=== PATIENT | male | born 1960 | race Caucasian/White ===

== ENCOUNTER 2024-01-18 10:46 | Emergency (ER) | payer BC, SELFPAY ==
[2024-01-18] VITALS (27 sets, daily range): BP systolic 110–162; BP diastolic 68–90; PULSE 44–60; RESP 13–20; TEMP 36.7; O2SAT 93–100
--- NOTE | ~2024-01-18 | XR_ITS ---
EXAMINATION: XR chest 2V DATE: 01/18/2024 11:46 INDICATION: Chest pain and shortness of breath TECHNIQUE: PA and lateral views of the chest were obtained. COMPARISON: None FINDINGS: Calcified left infrahilar nodules consistent with old granulomatous disease. No other airspace opacit ies, pulmonary edema, pleural effusion or pneumothorax. The cardiomediastinal silhouette is normal. M ild to moderate thoracic spondylosis with mild thoracolumbar dextrocurvature. IMPRESSION: 1. No acute cardiopulmonary disease. Reviewed, dictated and finalized at location A.
--- NOTE | ~2024-01-18 | US_ITS ---
EXAMINATION: US venous doppler [facility] DATE: 01/18/2024 11:49 INDICATION: Chest pain, shortness of breath and lower limb pain. TECHNIQUE: Grayscale ultrasound images without and with compression and Doppler ultrasound images of the bilateral lower extremity veins were obtained. COMPARISON: None. FINDINGS: The visualized portions of right common femoral vein, profunda (deep) femoral vein, femoral vein, pop liteal vein, posterior tibial veins, peroneal veins, gastrocnemius vein and greater saphenous vein ou tflow are patent. The visualized portions of left common femoral vein, profunda femoral vein, femoral vein, popliteal v ein, posterior tibial veins, peroneal veins, gastrocnemius vein and greater saphenous vein outflow ar e patent. IMPRESSION: 1. No deep venous thrombosis in either lower limb. Reviewed, dictated and finalized at location A.
--- NOTE | 2024-01-18 10:49 | ECG_ITS ---
SEE SCANNED COPY FOR CONFIRMED REPORT MTDD
--- NOTE | 2024-01-18 10:55 | ED.CHESTPAIN ---
HPI - Chest Pain General Chief Complaint: Chest Pain Stated Complaint: CP, SOB Time Seen by Provider: 01/18/24 10:48 History of Present Illness HPI narrative: Patient is a 63-year-old male with history of hypertension, gout and osteoarthritis here with chest pain and shortness of breath. Patient states that he is currently under lot of stress, newly moving to this area, getting his house ready to be placed on the market. He states over the last few days he has felt increasing fatigue and brain fog which she typically feels when his blood pressure gets elevated. He then notes that just prior to arrival he began having some midsternal chest pain associated with shortness of breath. He denies any associated nausea or diaphoresis. He describes it as feeling like a weight sitting on his chest, the pain has been constant, dull, does seem to worsen with deep breaths and becomes sharp. No cough or congestion. No fever chills. He does note that he has been in the car quite frequently recently and was on a trip out of town last week and. He has had some bilateral calf pain, no swelling. No prior history of PE or DVT. No prior history of cardiac disease. He last had a cardiac workup about 15 years ago when he was experiencing some similar symptoms and was attributed to his anxiety at that time. Related Data Allergies Allergy/AdvReac Type Severity Reaction Status Date / Time ciprofloxacin [From Cipro] Allergy Rash Verified 01/18/24 11:01 Review of Systems Review of Systems: All systems reviewed & are unremarkable except as noted in HPI and below Exam Narrative: GENERAL: Well-appearing, well-nourished, and in no acute distress. HEAD: Normocephalic, atraumatic. EYES: PERRLA and EOMI. ENT: Nares clear. Mucous membranes moist. NECK: Supple. CHEST: Clear to auscultation. No respiratory distress. HEART: Regular rate and rhythm. Normal peripheral pulses. ABDOMEN: Soft, nontender, nondistended. EXTREMITIES: Normal range of motion. No calf tenderness, no pedal edema. SKIN: Warm, dry, no rash. NEURO: No focal deficits. Alert and oriented x3. PSYCH: Normal mood and affect. Course Course Emergency Course: Chart review performed. Patient here with chest heaviness. Triage vitals show mild HTN, otherwise normal. No prior visits in our system. Patient seen evaluated, nontoxic appearing. Triage EKG reassuring. Will do cardiac workup. Given additional symptoms of some calf cramping as well as pleuritic chest pain with shortness of breath will do screening D-dimer. Patient is low risk Wells and cannot use PERC to rule out due to age. Lab work and imaging reviewed, white blood cell count of 10.7, CBC otherwise unremarkable. Electrolytes within normal limits, normal renal function. Troponin negative x2. Lipase grossly normal. COVID, influenza, RSV negative. Bilateral lower extremity Doppler negative. Chest x-ray negative for acute process. HEART score of 3. Patient re-evaluated, feeling well. The results of pertinent diagnostic studies and exam findings were discussed. Discussed heart score of 3. Shared decision making. Will refer to local Cardiology group as well as a local primary care doctor should he not have 1 established in the area. The patient?s provisional diagnosis and plan of care were discussed with the patient and present family. The patient and/or present family expressed understanding of the diagnosis and plan. The nurse was instructed to provide written instructions and appropriate follow-up information. The patient understands their need and responsibility to obtain additional follow-up as instructed. The risks of medications administered and prescribed were discussed with the patient and family present. Vital Signs Vital signs: Vital Signs Temperature 98.0 F 01/18/24 10:51 Pulse Rate 54 L 01/18/24 10:51 Respiratory Rate 20 01/18/24 10:51 Blood Pressure 162/90 H 01/18/24 10:51 Pulse Oximetry 98 01/18/24
[2024-01-18] MEDS: ASPIRIN 81 MG CHEWABLE TABLET 324 MG PO (11:06)
[2024-01-18 11:12] LABS: Basophils Percent Auto 0.2 % (0.2-1.2); Eosinophils Percent Auto 0.4 % (0-4.4); Hematocrit 39.9 % (42.0-52.0); Hemoglobin 14.1 g/dL (14.0-18.0); Immature Granulocyte Absolute 0.06 K/mm3 (0.00-0.031); Immature Granulocyte Percent A 0.6 % (0-0.5); Lymphocytes Absolute Auto 2.88 K/mm3 (0.9-3.2); Lymphocytes Percent Auto 26.9 % (18.3-44.2); Mean Corpuscular HGB Conc 35.3 g/dl (32-36); Mean Corpuscular Hemoglobin 32.2 pg (26-34); Mean Corpuscular Volume 91.1 fl (80-100); Mean Platelet Volume 8.8 fl (7.4-10.4); Monocytes Absolute Auto 0.9 K/mm3 (0.1-0.6); Monocytes Percent Auto 8.2 % (2.6-8.5); Neutrophils Absolute Auto 6.8 K/mm3 (1.3-6.7); Neutrophils Percent Auto 63.7 % (45.5-73.1); Platelet Count Result 306 k/mm3 (150-375); Red Blood Count 4.38 M/mm3 (4.6-6.20); Red Cell Distribution Width 11.6 % (11.5-14.5); White Blood Count 10.7 K/mm3 (4.5-10.0)
[2024-01-18 11:23] LABS: Alanine Aminotransferase 23 U/L (6-50); Albumin Level 4.2 g/dL (3.5-5.1); Alkaline Phosphatase 135 U/L (38-126); Anion Gap 7 mmol/L (4-12); Aspartate Amino Transferase 30 U/L (17-59); Bilirubin,Total 0.7 mg/dL (0.2-1.3); Blood Urea Nitrogen 22 mg/dL (9-20); Carbon Dioxide 22 mmol/L (22-30); Chloride 105 mmol/L (98-107); Estimated CRCL calculation 99 ml/min; Estimated Glomerular Filt Rate > 60; Glucose 115 mg/dL (65-110); INR 0.9; Lipase 328 U/L (23-300); Potassium 3.9 mmol/L (3.4-5.0); Prothrombin Time 12.9 Seconds (11.1-14.7); Sodium 134 mmol/L (137-145)
[2024-01-18 11:32] LABS: D Dimer 0.29 ug/mL (<0.48)
[2024-01-18 11:35] LABS: Troponin I < 0.012 ng/mL (0.000-0.034)
[2024-01-18] MEDS: NITROGLYCERIN SL 0.4 MG TABLET SUBLINGUAL (11:56)
[2024-01-18 13:09] LABS: Influenza A QL RT-PCR Negative (Negative); Influenza B QL RT-PCR Negative (Negative); RSV RNA, RT-PCR Negative (Negative); SARS-CoV-2 RNA PCR Negative (Negative)
--- NOTE | 2024-01-18 13:56 | ECG_ITS ---
SEE SCANNED COPY FOR CONFIRMED REPORT MTDD
[2024-01-18 14:16] LABS: Troponin I < 0.012 ng/mL (0.000-0.034)
== END 2024-01-18 14:58 | disposition home or self-care (01) ==
PROVIDERS: Emergency Provider Student in an Organized Health Care Education/Training Program
DX: R07.89 Other chest pain (principal); Z20.822 Contact with and (suspected) exposure to COVID-19; I10 Essential (primary) hypertension; M19.90 Unspecified osteoarthritis, unspecified site; M10.9 Gout, unspecified; R00.1 Bradycardia, unspecified; R94.31 Abnormal electrocardiogram [ECG] [EKG]; I45.10 Unspecified right bundle-branch block
CPT/HCPCS: 36415; 71046; 80053; 83690; 84484; 85025; 85380; 85610; 85730; 87637; 93005; 93970; 99284; A9270

== ENCOUNTER 2024-11-14 15:13 | Emergency (ER) | payer BC, SELFPAY ==
--- NOTE | ~2024-11-14 | XR_ITS ---
HISTORY: DENIES FALL, SAYS PAIN STARTED YESTERDAY IN R KNEE COMPARISON: None TECHNIQUE: 4 views of the right knee were performed FINDINGS: No acute or subacute fracture, erosion, lytic or sclerotic lesion. Medial and lateral tibiofemoral joint space narrowing is identified. No suprapatellar joint effusion is identified. The infrapatellar joint space is clear. Ossification of the insertion of the quadriceps tendon is present. IMPRESSION: Degenerative disease without acute fracture. Reviewed, dictated and finalized at location A. 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
--- OUTSIDE RECORDS SUMMARY | 2024-11-14 15:15 | XMS_ITS | Encounter Summary ---
Author Organization [facility] Health Address [address] [place] [address] Care Team Providers Care Active Directory Specialist Name Role Phone Taniya Staton MD, German Lofton Primary Care Provider [phone] Shereen Mckeon MD Primary Care Provider [phone] Encounter Details Date Type Department Care Team (Late st Contact Info) Description 03/15/2019 [facility] Outpatient Visit [facility] [address] [place] [address] Jayjay Prieto MD [address] [facility] [address] [address] Social History Tobacco Use Types Packs/Day Years Used Date Smoking Tobacco: Former Cigarettes Q uit: 10/06/1999 Smokeless Tobacco: Never Alcohol Use Standard Drinks/Week Comments No 0 (1 standard drink = 0.6 oz pur e alcohol) Sex and Gender Information Value Date Recorded Sex Assigned at Not on file Gender Identity Not on file Sexual Orientation Not on file documented as of this encounter Plan of Treatment Not on file documented as of this encounter Goals Goal Patient Goal Type Associated Problems Recent Progress Patient-Stated? 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 Eating healthy foods may help you feel better and have more energy. To help control your blood pressure, you may need to limit the amount of salt and fat you eat. Read labels to see how much sodium (salt or sodium chloride) is in the food that you buy at the store. Avoid foods and drinks that are high in sodium (salt). These include smoked meats (such as ham and toussaint), cheese, canned and frozen foods, and butter and margarine. Read all labels carefully. Do not add salt to your food. Learn to use fresh herbs, spices, or salt substitutes to add flavor to your food. Ask your provider for any dietary restrictions that are appropriate for you. Where can I go for more information? [place] [employer] National Center: http://www.americanheart.org 1. In the top header, click C onditions . 2. In the top header, click h igh blood pressure. 3. For a printable blood pressure tracker, scroll toward the bottom of the page to Related Tools, and click H BP Trackers. 0-135-WNM-USA-1 or ( ) National Heart, Lung and Blood [place]: http://www.nhlbi.nih.gov/health/infoctr/index.htm documented as of this encounter Visit Diagnoses Not on filedocumented in this encounter Additional Health Concerns Infection Onset Date Last Indicated Resolved Time COVID-19 Under Investigation 06/20/2023 06/20/2023 06/20/2023 9:18 AM CDT documented as of this encounter Care Teams Active Directory Specialist Relationship Specialty Start Date End Date German Monahan Jr., MD [address] [place], [place] [address] [address] [place] [address] PCP - General 05/12/08 09/26/21 Shereen Mckeon MD [address] [place], [place] [address] [place] [id number] PCP - General Internal Medicine 09/27/21 documented as of this encounter
--- OUTSIDE RECORDS SUMMARY | 2024-11-14 15:15 | XMS_ITS ---
Author Organization [facility] Address [address] [place], [place] [id number] Care Team Providers Care Allergist/Md Name Role Phone ROSCOE LIU Primary Care Provider Marvin Purdy Unavailable [phone] MACIEJ HEBERT, NINO Lofton Unavailable Unavailable Encounters Encounter Location Date Provider Diagnosis [facility] [address], [address] [place], [place] [id number] 09/26/2024 Marvin Rose Elevated LFTs R79.89 ASSESSMENTS Encounter Date Diagnosis Assessment Notes Treatment Notes Treatment Clinical Notes 09/26/2024 Elevated LFTs (ICD-10 - R79.89) PLAN OF TREATMENT Future Test Test Name Order Date AST (SGOT) 10/18/2024 ALT (SGPT) 10/18/2024 Next Appt Details Provider Name:Sue Reynolds, 02/16/2025 11:50:00 AM, [address], [place], [place], [id number],
--- OUTSIDE RECORDS SUMMARY | 2024-11-14 15:15 | XMS_ITS | Continuity of Care Document ---
Author Organization [facility] Address [address] [place] [address] Phone Care Team Providers Care Network Professional Name Role Phone Calvin Gu MD Unavailable Unavailable Allergies, Adverse Reactions, Alerts Substance Reaction Status Criticality ciprofloxacin Active No Information Medications Medication Instructions Dosage Effective Dates (start - stop) Status Comments Duexis 800 mg-26.6 mg tablet take 1 tablet by oral route 3 times every day 1 tablet - Active ALLOPURINOL (unknown strength) take 1 tablet by oral route every day Not Available - Active lisinopril 10 mg tablet take 1 tablet by oral route every day 10 MG - Active lorazepam 1 mg tablet take 1 tablet by oral route 3 times every day as needed 1 MG - Active Procedures Procedure Date OFFICE/OUTPATIENT VISIT [facility] Advance Directives Directive Yes / No Effective Date File Name No Information Encounters Encounter Description Practice Location Reason(s) For Visit Diagnoses Date Provider Providers Copied on Encounter [facility], [address] [facility] [address], [place], [address], [place] tel:[phone] [facility] Department Orthopedics [facility] No Information 0-201 9 Riccardo Simpson. [address], [place], [place], [id number] . tel: [phone] OFFICE/OUTPA TIENT VISIT [facility] Orthopaedic Surgery, [address] [facility] [address], [place], [address], [place] tel:[phone] [facility] Department Orthopedics [facility] Body mass index (BMI) 28.0-28.9, adultPrimary osteoarthritis of left kneePrimary osteoarthritis of left hip 0-201 9 Aurelioantonieta Calvin. [address], [place], [place], [address] . tel: [phone] Referring Provider: German Monahan, [address] [place] [address], [address]. tel:[phone] Family History Family Member Type Diagnosis Age At Onset No Information Payers Payer name Insurance type Covered republican ID Authoriza tion(s) No Information Social History Type Description Quantity Date Captured Comments Alcohol Use Details Unknown Caffeine Use Details Unknown Tobacco Use Status No Information Smoking Status No Information Sex Male Chief Complaint And Reason For Visit No Information Reason For Referral Reason For Referral No Information History Of Present Illness Encounter Date Complaint History Of Prese nt Illness No Information Functional Status Date Functional Assessmen t No Information Instructions Date Instruction Additional Infor mation Weight monitoring Related to Bod y mass index (BMI) 28.0-28.9, adult Assessments Type Assessment Date No Information Patient Care Teams Name Effective Dates (start - stop) Status Members No Information
--- OUTSIDE RECORDS SUMMARY | 2024-11-14 15:15 | XMS_ITS | Encounter Summary ---
Author Organization [facility] Health Address [address] 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 [place] [employer] National Center: http://www.americanheart.org 1. In the top header, click C onditions . 2. In the top header, click h igh blood pressure. 3. For a printable blood pressure tracker, scroll toward the bottom of the page to Related Tools, and click H BP Trackers. 0-902-FME-USA-1 or ( ) National Heart, Lung and Blood [place]ogene: http://www.nhlbi.nih.gov/health/infoctr/index.htm documented as of this encounter Visit Diagnoses Not on filedocumented in this encounter Additional Health Concerns Infection Onset Date Last Indicated Resolved Time COVID-19 Under Investigation 06/20/2023 06/20/2023 06/20/2023 9:18 AM CDT documented as of this encounter Care Teams Employment Programs Analyst Relationship Specialty Start Date End Date German Monahan Jr., MD [address] [place] [address] [address] [place] [address] PCP - General 05/12/08 09/26/21 Shereen Mckeon MD [address] [place] [address] [address] [place] [phone] PCP - General Internal Medicine 09/27/21 documented as of this encounter
--- OUTSIDE RECORDS SUMMARY | 2024-11-14 15:15 | XMS_ITS ---
Author Organization [facility] Address [address] [place], [place] [address] Care Team Providers Care Food Products Tester Name Role Phone ROSCOE LIU Primary Care Provider Marvin Purdy Unavailable [phone] MACIEJ HEBERT, NINO Lofton Unavailable Unavailable MEDICATIONS Medication SIG (Take, Route, Fr equency, Duration) Notes Start Date End Date Status allopurinol 100 mg 1 tab(s) orally once a day for 90 days Active Mitigare 0.6 mg 1 cap(s) orally once a day for 90 days Active Encounters Encounter Location Date Provider Diagnosis [facility] [address], [address] [place], [place] [id number] 09/17/2024 Marvin Rose Idiopathic gout, unspecified chronicity, 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
--- OUTSIDE RECORDS SUMMARY | 2024-11-14 15:16 | XMS_ITS | Referral Summary ---
Author Organization [facility] Address [address] [place] [address] Care Team Providers Care Enameler Name Role Phone Shereen Mckeon MD Primary Care Provider [phone] Source Comments [facility] Affiliates and Associated Physician Practices is amultiple site organization consisting of ambulatory clinics and hospital sitesin [place], [place], [place] and [place]. This disclosure is being madepursuant to the Care Everywhere program and may not contain all information available regarding this patient. Last updated 18.[facility] Encounters Date Type Department Care Team Description 11/05/2024 Orders Only [facility] - Internal Medicine [address] [place] [phone] Marcella Marquez APRN-CNP 10/04/2024 11:46 AM VOLLEYBALL REFEREE - 10/04/2024 11:59 PM VOLLEYBALL REFEREE Hospital Encounter [facility] Imaging Services - CT Scan [address] [place] [id number] Marcella Marquez APRN-CNP Discharge Disposition: Home or Self Care 10/04/2024 Travel 10/04/2024 9:45 AM VOLLEYBALL REFEREE Office Visit [facility] - Internal Medicine [address] [place] [phone] Marcella Marquez APRN-CNP Annual physical exam (Primary Dx); LLQ pain; Screening PSA (prostate specific antigen); Essential hypertension 09/27/2024 Travel 09/27/2024 1:30 PM VOLLEYBALL REFEREE Procedure visit [facility] - Urology [address], [address] [place] [address] Kendall Greene MD Peyronie's disease 09/20/2024 Travel 09/20/2024 3:15 PM VOLLEYBALL REFEREE Office Visit [facility] Orthopedics [address] [place] [address] Ar Arreaga PA-C Glenohumeral arthritis, left (Primary Dx) 09/17/2024 Refill [facility] Internal Medicine [address] [place] [address] [address] [place] [address] Shereen Mckeon MD Med Change Request 09/15/2024 Refill [facility] Internal Medicine [address] [place] [phone] Shereen Mckeon MD Med Change Request 09/13/2024 Travel 09/13/2024 1:30 PM VOLLEYBALL REFEREE Procedure visit [facility] - Urology [address] [place] [address] Kendall Greene MD Peyronie's disease 08/30/2024 Travel 08/30/2024 1:30 PM VOLLEYBALL REFEREE Procedure visit [facility] - Urology [address] [place] [address] Kendall Greene MD Peyronie's disease 08/23/2024 Travel 08/23/2024 3:20 PM VOLLEYBALL REFEREE Office Visit [facility] Internal Medicine [address] [place] [address] [address] [place] [phone] Verenice Dickens, PATIENT DAY COORDINATOR-DYE ROOM HELPER Current moderate episode of major depressive disorder, unspecified whether recurrent (HCC) (Primary Dx); Marijuana smoker, episodic; Insomnia, unspecified type 08/19/2024 Telephone [facility] Internal Medicine [address] [place] [address] [address] [place] [address] Shereen Mckeon MD INSOMNIA 08/16/2024 Travel 08/16/2024 1:30 PM VOLLEYBALL REFEREE Procedure visit [facility] - Urology [address] [place] [address] Kendall Greene MD Peyronie's disease 08/15/2024 Refill [facility] - Internal Medicine [address] [place] [address] Shereen Mckeon MD Refill Request from Last 3 Months Allergies Active Allergy Reactions Criticality Noted Date Comments Bactrim 05/12/2008 Ciprofloxacin Hydrochloride Rash Low 05/12/20 08 hives Sulindac Nausea 08/04/2008 Paroxetine Other 07/17/2010 insomnia Medications * Be aware that medications may not be up to date on this document. Alwaysverify current medications with the patient. Medication Sig Dispensed Refills Start Date End Date Status [place]-3 Fatty Acids (FISH OIL PO) Active Multiple Vitamin (MULTIVITAMIN+ PO) Active allopurinol (ZYLOPRIM) 100 MG tablet Take 1 (one) tablet by mouth once daily Arthritis consulatant Active OMEPRAZOLE PO Take by mouth once daily Active cetirizine (ZyrTEC) 10 MG chew tablet Take 1 (one) tablet by mouth once daily Active lisinopril (Prinivil; Zestril) 10 MG tabletIndications:H ypertension Take 1 (one) tablet by mouth once daily Reasons: High Blood Pressure 90 tablet 08/16/2024 Active colchicine 0.6 MG tablet Take 1 (one) tablet by mouth as needed (inflammation) Gout flareup Active Active Problems Problem Noted Date Diagnosed Date COVID-19 02/2022 paxlovid 04/16/2022 Overview (04/16/2022): 02/2022 needs PP urbano for 08/2022/ bella ag pain face, felt tired,fever - chills. fatigue+/ urine/ conc ok / cp none last night ok on elliptical / cough n Generalized anxiety disorder 04/15/2022 Overview (04/15/2022): lorazepam Gastroesophageal reflux disease with esophagitis 08/05/2019 Overview (08/05/2019): Dr. Coyle/GI 07/2019 moderate severe (grd D, LA classification) erosive reflux esophagitis Post-operative state, left s houlder labral repair dos 09-17-18 10/30/2018 Gouty arthritis 08/10/2018 Overview (04/15/2022): allop / dr moulton GERD without esophagitis 08/10/2018 Diverticulosis of colon 07/09/2017 History of adenomatous polyp of colon - multiple polyps, large polyps, serrated adenoma 01/04/2013 Overview (12/19/2021): Dr. Brady 12/16 x3 (serrated adenoma x2), 07/22 x2 (serrated adenoma x2, 12 mm cecal polyp, piece meal), 08/23 x3 (serrated adenoma x1), 12/25 Internal hemorrhoids 01/04/2013 Rectosigmoid diverticulitis recurrent s/p coloct otis 11/27/2012 S/P arthroscopy 09/06/2008 Overview (09/06/2008): Dex knees Poss. Viviana hilary Essential hypertension, benign 08/16/2008 Overview (12/12/2022): lisinopril decrease K / amlodipine started Insomnia Other testicular hypofunction Resolved Problems Problem Noted Date Diagnosed Date Resolved Date Gouty arthropathy 08/12/2008 12/10/2010 Immunizations Name Administration Dates Next Due INFLUENZA VACCINE, TRIV. (AF LURIA, FLUZONE TRIVALENT; 6MO+) (IIV3) 07/19/2009 COVID MODERNA 12+ yr 50mcg/0.5mL 07/14/2023 COVID PFIZER 12+YR 30MCG/0.3mL 08/18/2024 COVID PFIZER BIVALENT 12Y+ 30mcg/0.3ML 06/23/2022 Covid Pfizer primary monoval ent 12+ yr 0.3mL Purple cap 07/03/2021,12/04/2020,11/15/2020,2020 HEP A/HEP B 05/18/2008 INFLUENZA VACCINE, CELL CULT URE, TRIV. (FLUCELVAX TRIVALENT; 6MO+), 0.5 ML (CCIIV3) 08/18/2024 INFLUENZA VACCINE, QUADR. (F LUZONE; FLULAVAL; FLUARIX; AFLURIA QUADRIVALENT; 6MO+), 0.5 ML (IIV4) 07/14/2023,06/23/2022,07/03/2021,2019 PNEUMOCOCCAL PCV VACCINE 07/19/2009 RSV AREXVY 60YR+ 0.5ML 08/27/2023 TDAP (7yrs+) 08/10/2018 Zoster Hzv Vacc Recombinant Inj Im 09/17/2020, Social History Tobacco Use Types Packs/Day Years Used Date Smoking Tobacco: Former Cigarettes Q uit: 10/06/1999 Smokeless Tobacco: Never Tobacco Cessation:Counseling Given: Not Answered Alcohol Use Standard Drinks/Week Comments No 0 (1 standard drink = 0.6 oz pur e alcohol) PHQ-2 Answer Date Recorded Patient Health Questionnaire-2 Score 0 10/04/2024 Sex and Gender Information Value Date Recorded Sex Assigned at Not on file Gender Identity Not on file Sexual Orientation Not on file Last Filed Vital Signs Vital Sign Reading Time Taken Comments Blood Pressure 112/74 10/04/2024 9:31 AM VOLLEYBALL REFEREE Pulse 56 10/04/2024 9:31 AM VOLLEYBALL REFEREE Temperature 36.4 C (97.5 F) 10/04/2024 9:31 AM VOLLEYBALL REFEREE Respiratory Rate 16 10/03/2023 1:32 PM VOLLEYBALL REFEREE Oxygen Saturation 98% 10/04/2024 9:31 AM VOLLEYBALL REFEREE Inhaled Oxygen Concentration - - Weight 88.9 kg (196 lb) 10/04/2024 9:31 AM VOLLEYBALL REFEREE Height 177.8 cm (5' 10 ) 06/14/2024 2:29 PM CDT Body Mass Index 28.12 06/14/2024 2:29 PM CDT Plan of Treatment Not on file Goals Goal Patient Goal Type Associated Problems Recent Progress Patient-Stated? Author Blood Pressure < 140/90 Blood Pressure 112/74(2023 9:31 AM VOLLEYBALL REFEREE) Camila Hoang Note: Caring for Your High [...] Where can I go for more information? [place] [employer] National Center: http://www.americanheart.org 1. In the top header, click C onditions . 2. In the top header, click h igh blood pressure. 3. For a printable blood pressure tracker, scroll toward the bottom of the page to Related Tools, and click H BP Trackers. [id number]-[id number] or ( ) National Heart, Lung and Blood [place]: http://www.nhlbi.nih.gov/health/infoctr/index.htm Medical Devices Implanted Type Area Plant Electrician Device Identifier Shelf Expiration Date Model / Serial / Lot Endo Sabine Articulating Reload Implanted:Qty: 1 on 05/27/2013 at [facility] 12/04/2017 [id number] / / [id number] Description:60 mm Endo Sabine Reload 60mm Implanted:Qty: 2 on 05/27/2013 at [facility] 03/06/2018 [id number] / / [id number] Endo Sabine Articulating Reload, 60mm Implanted:Qty: 1 on 05/27/2013 at [facility] 04/05/2018 [id number] / / [id number] Autosuture Dst Series 28 Xl Eea Implanted:Qty: 1 on 05/27/2013 at [facility] 12/04/2016 [id number] / / [id number] [place] Sut Pushlock 2.9mm Bcmps 12.5mm Implanted:Qty: 1 on 09/17/2018 by Jayjay Prieto MD at [facility] Left: Shoulder [employer] 03/05/2020 [id number] / / [id number] [place] Sut Pushlock 2.9mm Bcmps 12.5mm Implanted:Qty: 2 on 09/17/2018 by Jayjya Prieto MD at [facility] Left: Shoulder [employer] 06/05/2020 [id number] / / [id number] [place] Sut Fibertak Suturetape 1.3mm Implanted:Qty: 1 on 09/17/2018 by Jayjay Prieto MD at [facility] Left: Shoulder [employer] 01/03/2023 [id number] / / [id number] [place] Sut Pushlock 2.9mm Bcmps 12.5mm Implanted:Qty: 1 on 09/17/2018 by Jayjay Prieto MD at [facility] Left: Shoulder [employer] 05/05/2020 [id number] / / [id number] [place] Sut Pushlock 2.9mm Bcmps Roland Implanted:Qty: 1 on 09/17/2018 by Jayjay Prieto MD at [facility] Left: Shoulder [employer] 02/03/2020 [id number] / / [id number] Procedures Procedure Name Priority Date/Time Associated Diagnosis Comments PROSTATE SPECIFIC ANTIGEN SCREEN 11/05/2024 6:59 AM VOLLEYBALL REFEREE CBC W AUTO DIFFERENTIAL 11/05/2024 6:59 AM VOLLEYBALL REFEREE COMPREHENSIVE METABOLIC PANEL 11/05/2024 6:59 AM VOLLEYBALL REFEREE LIPID PROFILE 11/05/2024 6:59 AM VOLLEYBALL REFEREE ISTAT CREATININE Routine 10/04/2024 1:[address] ABDOMEN PELVIS W CONTRAST Routine 10/04/2024 1:45 PM VOLLEYBALL REFEREE LLQ pain TOXASSURE SELECT Routine 08/23/2024 3:56 PM VOLLEYBALL REFEREE Current moderate episode of major depressive disorder, unspecified whether recurrent (HCC) Marijuana smoker, episodic ENDOSCOPY, COLON, SCREENING Routine 12/17/2021 History of adenomatous polyp of colon - multiple polyps, large polyps, serrated adenoma Serrated polyp of colon Family history of colonic polyps HEPATITIS C ANTIBODY W RFLX PCR Routine 10/22/2018 9:26 AM VOLLEYBALL REFEREE Routine general medical examination at a health care facility from Last 3 Months or Most Recently Relevant to Health Maintenance Results * CBC WITH DIFFERENTIAL (11/05/2024 6:59 AM VOLLEYBALL REFEREE) White Blood Cell Count 8.2 3.8 - 10.8 Thousand/u L [facility] RBC 4.68 4.20 - 5.80 Million/uL [facility] Hemoglobin 14.8 13.2 - 17.1 g/dL [facility] Hematocrit 43.7 38.5 - 50.0 % [facility] MCV 93.4 80.0 - 100.0 fL [facility] MCH 31.6 27.0 - 33.0 pg [facility] MCHC 33.9 32.0 - 36.0 g/dL [facility] Comment: For adults, a slight decrease in the calculated MCHC value (in the range of 30 to 32 g/dL) is most likely not clinically significant; however, it should be interpreted with caution in correlation with other red cell parameters and the patient's clinical condition. RDW 11.6 11.0 - 15.0 % [facility] Platelet Count 289 140 - 400 Thousand/u L [facility] MPV 8.8 7.5 - 12.5 fL [facility] Neutrophil Absolute 4543 1500 - 7800 cells/uL [facility] Lymphocytes Absolute 2640 850 - 3900 cells/uL [facility] Absolute Monocytes 869 200 - 950 cells/uL [facility] Eosinophils Absolute 107 15 - 500 cells/uL [facility] Basophils Absolute 41 0 - 200 cells/uL [facility] Granulocytes % 55.4 % [facility] Lymphocytes % 32.2 % [facility] Monocytes % 10.6 % [facility] Eosinophils % 1.3 % [facility] Basophils % 0.5 % [facility] Comment: Test Performed at: [facility] [address] [place] [address] BRIGIDO SHELTON MD 11/05/2024 6:59 AM VOLLEYBALL REFEREE 11/05/2024 7:01 AM VOLLEYBALL REFEREE Marcella Marquez APRN-DYE ROOM HELPER LAB - SOL TOLOGY ORDERABLES [facility] [address] [place] [address] * COMPREHENSIVE METABOLIC PANEL (11/05/2024 6:59 AM VOLLEYBALL REFEREE) Glucose 95 65 - 99 mg/dL [facility] Comment: Fasting reference interval BUN 19 7 - 25 mg/dL [facility] Creatinine 0.84 0.70 - 1.35 mg/dL [facility] eGFR by Cystatin C 99 > OR = 60 mL/min/1. 73m2 [facility] BUN/Creatinine Ratio SEE NOTE: 6 - (calc) [facility] Comment: Not Reported: BUN and Creatinine are within reference range. Sodium 137 135 - 146 mmol/L [facility] Potassium 4.9 3.5 - 5.3 mmol/L [facility] Chloride 101 98 - 110 mmol/L [facility] CO2 30 20 - 32 mmol/L [facility] Calcium 9.5 8.6 - 10.3 mg/dL [facility] Protein Total 6.9 6.1 - 8.1 g/dL [facility] Albumin 4.5 3.6 - 5.1 g/dL [facility] Globulin Total 2.4 1.9 - 3.7 g/dL (calc) [facility] Albumin/Globulin Ratio 1.9 1.0 - 2.5 (calc) [facility] Bilirubin Total 0.5 0.2 - 1.2 mg/dL [facility] Alkaline Phosphatase 107 35 - 144 U/L [facility] AST 32 10 - 35 U/L [facility] ALT 25 9 - 46 U/L [facility] Comment: Test Performed at: [facility] [place] [address] BRIGIDO SHELTON MD 11/05/2024 6:59 AM VOLLEYBALL REFEREE 11/05/2024 7:01 AM VOLLEYBALL REFEREE Marcella Marquez APRN-DYE ROOM HELPER LAB - CHEM ISTRY ORDERABLES Performing Organization Address [facility] de Phone Number [facility] [address] [place] [address] * PROSTATE SPECIFIC ANTIGEN SCREEN (11/05/2024 6:59 AM VOLLEYBALL REFEREE) PSA 0.75 < OR = 4.00 ng/mL [facility] Comment: The total PSA value from this assay system is standardized against the WHO standard. The test result will be approximately 20% lower when compared to the equimolar-standardized total PSA (Aniyah Inocente). Comparison of serial PSA results should be interpreted with this fact in mind. This test was performed using the Siemens chemiluminescent method. Values obtained from different assay methods cannot be used interchangeably. PSA levels, regardless of value, should not be interpreted as absolute evidence of the presence or absence of disease. Test Performed at: [facility] [address] [place] [address] BRIGIDO SHELTON MD 11/05/2024 6:59 AM VOLLEYBALL REFEREE 11/05/2024 7:01 AM VOLLEYBALL REFEREE Marcella Marquez PATIENT DAY COORDINATOR-DYE ROOM HELPER LAB - CHEM ISTRY ORDERABLES Performing Organization Address [facility] de Phone Number [facility] [address] [place] [address] * LIPID PROFILE (11/05/2024 6:59 AM VOLLEYBALL REFEREE) Cholesterol 160 <200 mg/dL [facility] HDL Cholesterol 53 > OR = 40 mg/dL [facility] Triglycerides 81 <150 mg/dL [facility] LDL Calculated 90 mg/dL (calc) [facility] Comment: Reference range: <100 Desirable range <100 mg/dL for primary prevention; <70 mg/dL for patients with CHD or diabetic patients with > or = 2 CHD risk factors. LDL-C is now calculated using the Nanci calculation, which is a validated novel method providing better accuracy than the Friedewald equation in the estimation of LDL-C. German MCDERMOTT et al. FAUZIA. 2013;310(19): 3644-4819 (http://education.TargeGen.Dormzy/faq/KOB840) CHOL/HDLC RATIO 3.0 <5.0 (calc) [facility] Non HDL Cholesterol 107 <130 mg/dL (calc) [facility] Comment: For patients with diabetes plus 1 major ASCVD risk factor, treating to a non-HDL-C goal of <100 mg/dL (LDL-C of <70 mg/dL) is considered a therapeutic option. Test Performed at: [facility] [address] [place] [address] BRIGIDO SHELTON MD 11/05/2024 6:59 AM VOLLEYBALL REFEREE 11/05/2024 7:01 AM VOLLEYBALL REFEREE Marcella Marquez APRN-DYE ROOM HELPER LAB - CHEM ISTRY ORDERABLES [facility] [address] [place] [address] * ISTAT CREATININE (10/04/2024 1:59 PM VOLLEYBALL REFEREE) Sample iSTAT GRICELDA 10/04/2024 2:01 PM VOLLEYBALL REFEREE [facility] Creatinine POCT 0.8 0.5 - 1.3 mgdL 10/04/2024 2:01 PM VOLLEYBALL REFEREE [facility] Blood BLOOD SPECIMEN / Unknown 10/04/2024 1:59 PM VOLLEYBALL REFEREE 10/04/2024 2:01 PM VOLLEYBALL REFEREE Marcella Marquez APRN-DYE ROOM HELPER LAB - POIN T OF CARE ORDERABLES [facility] [address] [place] [address], [facility] [[email or web address]] * CT Abdomen Pelvis W Contrast (10/04/2024 1:45 PM VOLLEYBALL REFEREE) Anatomical Region Laterality Modality Abdomen, Pelvis Computed Tomogra phy 10/04/2024 2:24 PM VOLLEYBALL REFEREE Impressions 10/04/2024 2:29 PM VOLLEYBALL REFEREE IMPRESSION: 1. Inflammatory change adjacent to the descending colon as described. Although the patient has significant diverticulosis. An has had partial sigmoid resection due to recurrent diverticulitis the above findings are much more suggestive of epiploic appendagitis as a self limited inflammatory but noninfectious entity and would correlate clinically. 2. Normal appendix > Interpreting Provider: Hilton Ramos MD on 10/04/2024 2:29 PM Narrative 10/04/2024 2:29 PM VOLLEYBALL REFEREE PROCEDURE: CT ABDOMEN PELVIS W CONTRAST DATE/TIME OF EXAM: 10/04/2024 2:18 PM INDICATION: R10.32: Left lower quadrant pain COMPARISON: 2018 ADDITIONAL CLINICAL INFORMATION (if provided): Ordering Provider Reason For Exam: CONTRAST: IOPAMIDOL 76 % IV SOLN:100 mL TECHNIQUE: CT ABDOMEN PELVIS W CONTRAST utilizing standard protocol.. Routine postcontrast imaging was performed with intravenous contrast with multiplanar reconstructions. CT dose reduction technique was used, including Automated Exposure Control. FINDINGS: The lower lung saravia are clear. There is a stable punctate cyst in posterior segment 7 of the liver otherwise the liver spleen gallbladder pancreas adrenals and kidneys enhance normally. No kidney stone or hydronephrosis is seen. The abdominal aorta is normal in caliber. The urinary bladder wall is slightly thickened and the prostate is mildly enlarged. Oral contrast was administered with incomplete distal small and large bowel opacification. The patient is status post prior sigmoid resection with primary anastomosis and residual moderate diverticulosis. There is no obstruction seen. The terminal ileum and appendix appear to be normal. Adjacent to the descending colon there is a subtle inflammatory process on axial image 57 with central fat attenuation.. There is no perforation fluid collection abscess or bowel obstruction. Procedure Note Hilton Ramos MD - 10/04/2024 PROCEDURE: CT ABDOMEN PELVIS W CONTRAST DATE/TIME OF EXAM: 10/04/2024 2:18 PM INDICATION: R10.32: Left lower quadrant pain COMPARISON: 2018 ADDITIONAL CLINICAL INFORMATION (if provided): Ordering Provider Reason For Exam: CONTRAST: IOPAMIDOL 76 % IV SOLN:100 mL TECHNIQUE: CT ABDOMEN PELVIS W CONTRAST utilizing standard protocol.. Routine postcontrast imaging was performed with intravenous contrastwith multiplanar reconstructions. CT dose reduction technique was used, including Automated ExposureControl. FINDINGS: The lower lung saravia are clear. There is a stable punctate cyst in posterior segment 7 of the liver otherwise the liver spleen gallbladder pancreas adrenals and kidneys enhance normally. No kidney stone or hydronephrosis is seen. Theabdominal aorta is normal in caliber. The urinary bladder wall is slightlythickened and the prostate is mildly enlarged. Oral contrast was administered with incomplete distal small and largebowel opacification. The patient is status post prior sigmoid resection with primary anastomosis and residual moderate diverticulosis. There is no obstruction seen. The terminal ileum and appendix appear to be normal. Adjacent to the descending colon there is a subtle inflammatory processon axial image 57 with central fat attenuation.. There is no perforationfluid collection abscess or bowel obstruction. IMPRESSION: 1. Inflammatory change adjacent to the descending colon as described. Although the patient has significant diverticulosis. An has had partial sigmoid resection due to recurrent diverticulitis the above findings are much more suggestive of epiploic appendagitis as a self limited inflammatory but noninfectious entity and would correlate clinically. 2. Normal appendix > Interpreting Provider: Hilton Ramos MD on 10/04/2024 2:29 PM Marcella Sarabia Jimmy PATIENT DAY COORDINATOR-DYE ROOM HELPER CT ORDERAB LES * TOXASSURE SELECT URINE (08/23/2024 3:56 PM VOLLEYBALL REFEREE) Summary FINAL [facility] INSURANCE BILL Comment: TOXASSURE SELECT 13 (MW) Test Result Flag Units NO DRUGS DETECTED. Test Result Flag Units Ref Range Creatinine 29 mg/dL >=20 Declared Medications: Medication list was not provided. For clinical consultation, please call . URINE SPECIMEN OBTAINED BY CLEAN CATCH PROCEDURE / Unknown 08/23/2024 3:56 PM VOLLEYBALL REFEREE 08/23/2024 Narrative [facility] INSURANCE BILL - 08/29/2024 3:07 PM VOLLEYBALL REFEREE Performed at: 01 - [employer] [address] [place] [id number] Breakfast Bar Attendant: Mayelin Kathleen [facility], Phone: [phone] Specimen Comment: ToxAssure, [employer] FLEX or MAT drug testing: Specimen Comment: -Technical component - Data analysis performed at Specimen Comment: [address] , [place] [address]. Verenice Dickens APRN-DYE ROOM HELPER LAB - URINE CHEMISTRY ORDERABLES Performing Organization Address City/[facility] Co de Phone Number [facility] INSURANCE BILL [address] [place] [address] * ENDOSCOPY, COLON, SCREENING (12/17/2021) Angel Coyle MD GI PROCEDURE ORDERAB LES [facility] RESULT SCAN * HEPATITIS C ANTIBODY W RFLX PCR (10/22/2018 9:26 AM VOLLEYBALL REFEREE) Hepatitis C Antibody 0.1 0.0 - 0.9 s/co ratio [facility] ACCOUNT BILL Blood BLOOD SPECIMEN / Unknown 10/22/2018 9:26 AM VOLLEYBALL REFEREE 10/22/2018 Narrative Resulting Agency Comment [facility] [address] [facility] [phone] German Monahan Jr., MD LAB - CHEMISTRY O RDERABLES [facility] ACCOUNT BILL [address] [place] [address] from Last 3 Months or Most Recently Relevant to Health Maintenance Advance Directives Documents on File Type Date Recorded Patient Street Cleaner Expl anation Adv Directive/Living Will/POA 06/02/2013 7:12 PM * FULL RESUSCITATION (Latest Code Status on File) Date Activated Date Inactivated Comments 05/27/2013 4:48 PM 06/01/2013 12:04 PM Care Teams Enameler Relationship Specialty Start Date End Date Shereen Mckeon MD [address] [place] [address] PCP - General Internal Medicine 09/27/21
--- OUTSIDE RECORDS SUMMARY | 2024-11-14 15:16 | XMS_ITS ---
Author Organization [facility] Address [address] [facility] [address] [place], [place] [id number] Care Team Providers Care Chicken And Fish Cleaner Name Role Phone ROSCOE LIU Primary Care Provider UnavailMarvin Mehta Unavailable [phone] NINO WING MD Unavailable Unavailable Sue Reynolds Unavailable [phone] RESULTS Component Value Reference Range Notes Uric Acid, Serum Reviewed date:09/18/2024 06:25:56 PM Interpretation: Performing Lab:[facility], [address] [facility], Phone - [phone], [facility] - [facility] Notes/Report: Uric Acid 8.3 3.8-8.4 mg/dL Therapeutic ta rget for gout patients: <6.0 CBC With Differential/Platel et Reviewed date:09/18/2024 06:25:56 PM Interpretation: Performing Lab:[facility], [address] [facility], Phone - [phone], [facility] Notes/Report: WBC 7.4 3.4-10.8 x10E3/uL RBC 4.66 4.14-5.80 x10E6/uL Hemoglobin 14.6 13.0-17.7 g/dL Hematocrit 43.5 37.5-51.0 % MCV 93 79-97 fL MCH 31.3 26.6-33.0 pg MCHC 33.6 31.5-35.7 g/dL RDW 11.8 11.6-15.4 % Platelets 312 150-450 x10E3/uL Neutrophils 53 Not Estab. % Lymphs 34 Not Estab. % Monocytes 9 Not Estab. % Eos 2 Not Estab. % Basos 1 Not Estab. % Immature Cells Neutrophils (Absolute) 4.0 1.4-7.0 x10E3/uL Lymphs (Absolute) 2.5 0.7-3.1 x10E3/uL Monocytes(Absolute) 0.7 0.1-0.9 x10E3/uL Eos (Absolute) 0.1 0.0-0.4 x10E3/uL Baso (Absolute) 0.1 0.0-0.2 x10E3/uL Immature Granulocytes 1 Not Estab. % Immature Grans (Abs) 0.1 0.0-0.1 x10E3/uL NRBC Hematology Comments: Sed Rate - [place] Reviewed date:09/18/2024 06:25:56 PM Interpretation: Performing Lab:[address], Phone - [phone], Director - [facility] Notes/Report: Sedimentation Rate-[place] 5 0-30 mm/hr Rheumatoid Arthritis Factor Reviewed date:09/18/2024 06:25:56 PM Interpretation: Performing Lab:[address], Phone - [phone], Director - [facility] Notes/Report: Rheumatoid Factor (RF) 10.5 <14.0 IU/mL C-Reactive Protein, Quant Reviewed date:09/18/2024 06:25:56 PM Interpretation: Performing Lab:[address], Phone - [phone], Director - [facility] Notes/Report: C-Reactive Protein, Quant 4 0-10 mg/L CCP IgG Antibodies Reviewed date:09/18/2024 06:25:56 PM Interpretation: Performing Lab:[address], Phone - [phone], Director - [facility] Notes/Report: Anti-CCP Ab, IgG/IgA 2 0-19 units Negative <20 Weak positive 20 - 39 Moderate positive 40 - 59 Strong positive >59 Comp. Metabolic Panel (14) Reviewed date:09/26/2024 10:11:21 PM Interpretation: Performing Lab:[address], Phone - [phone], Director - [facility] Notes/Report: Glucose 87 70-99 mg/dL BUN 15 8-27 mg/dL Creatinine 0.88 0.76-1.27 mg/dL eGFR 97 >59 mL/min/1.73 BUN/Creatinine Ratio 17 10-24 Sodium 140 134-144 mmol/L Potassium 4.6 3.5-5.2 mmol/L Chloride 102 96-106 mmol/L Carbon Dioxide, Total 28 20-29 mmol/L Calcium 9.8 8.6-10.2 mg/dL Protein, Total 6.8 6.0-8.5 g/dL Albumin 4.2 3.9-4.9 g/dL Globulin, Total 2.6 1.5-4.5 g/dL Bilirubin, Total 0.5 0.0-1.2 mg/dL Alkaline Phosphatase 121 44-121 IU/L AST (SGOT) 42 0-40 IU/L ALT (SGPT) 43 0-44 IU/L REASON FOR VISIT f/u MEDICATIONS Medication SIG (Take, Route, Fr equency, Duration) Notes Start Date End Date Status lisinopril 10 mg 1 tab(s) orally once a day Active allopurinol 100 mg 1 tab(s) orally NEED S APPT once a day Active Mitigare 0.6 mg 1 cap(s) orally once a day for 30 days Active colchicine 0.6 mg 1 tab(s) PRN Active celecoxib 100 mg 1 cap(s) orally once a day Active VITAL SIGNS BMI 28.12 kg/m2 09/17/2024 Blood pressure systolic 116 mm Hg 09/17/20 24 Blood pressure diastolic 65 mm Hg 024 Heart Rate 58 /min 09/17/2024 Height 70 in 09/17/2024 Weight 196 lbs 09/17/2024 Encounters Encounter Location Date Provider Diagnosis [facility], [address] [place], [place] [id number] 09/17/2024 Sue Reynolds Idiopathic gout, unspecified chronicity, unspecified site M10.00 ; Primary generalized (osteo)arthritis M15.0 ; Other fdc (current) drug therapy Z79.899 ; Polyarthritis M13.0 ; Pain in right hip M25.551 ; Pain in left hip M25.552 ; Pain, joint, knee, left M25.562 and Essential (primary) hypertension I10 ASSESSMENTS Encounter Date Diagnosis Assessment Notes Treatment Notes Treatment Clinical Notes 09/17/2024 Idiopathic gout, unspecified chronicity, unspecified site (ICD-10 - M10.00) 09/17/2024 Primary generalized (osteo)arthritis (ICD-10 - M15.0) 09/17/2024 Other terminal make up operator (current) drug therapy (ICD-10 - Z79.899) 09/17/2024 Polyarthritis (ICD-1 0 - M13.0) 09/17/2024 Pain in right hip (ICD-10 - M25.551) 09/17/2024 Pain in left hip (ICD-10 - M25.552) 09/17/2024 Pain, joint, knee, left (ICD-10 - M25.562) 09/17/2024 Essential (primary) hypertension (ICD-10 - I10) PLAN OF TREATMENT Medication Medication Name Sig Start Date Stop Date Notes lisinopril 10 mg 1 tab(s) orally once a day allopurinol 100 mg 1 tab(s) orally NEEDS APPT once a day colchicine 0.6 mg 1 tab(s) PRN celecoxib 100 mg 1 cap(s) orally once a day Next Appt Details Follow Up: 6 Months, 4 Month s, Reason: Provider Name:Sue Reynolds, 02/16/2025 11:50:00 AM, [address] [facility], [place], [place], [id number], Progress Notes * Examination Category Sub-Category Detail Notes General Constitutional: No acute distres s HEENT: PERRLA, Neck supple, Normal sclerae and conjunctivae Cardiovascular RSR, No murmurs, No rub, Normal peripheral pulsations, No edema Lungs: clear to ausculation Abdomen: soft, no organomegal y or masses /Rectal: not done Skin: erythematous rash Neurological: No focal neurologica l findings, DTRs intact Heme/Lymphatic: No cervical, axillar y, or inguinal adenopathy Psych: Alert, oriented x 3, Normal affect Musculoskeletal: Normal strength. No muscle atrophy Joint Exam Shoulders No swelling, no tenderness, NROM, No instability or deformity. left shoulder surgery. Left arm in a sling. Elbows No swelling, no tend erness, NROM, No instability or deformity Wrists No swelling, no tend erness, NROM, No instability or deformity Hips bilateral, NROM, No instability or deformity, 2+ tenderness with decreased ROM and pain to internal rotation. Knees No swelling, no tend erness, NROM., right, 1+ tenderness Ankles No swelling, no tend erness, NROM, No instability or deformity All IPs No swelling, no tend erness, NROM, no deformity unless noted blow All MCPs No swelling, no tend erness, no deformity unless noted below All PIPs No swelling, no tend erness, no deformity unless noted below All DIPs No swelling, no tend erness, no deformity unless noted below All MTPs No swelling, no tend erness, NROM, no deformity unless noted below History and Physical Notes * HPI (History of Present Illness) Category Sub-Category Detail Notes Gout Joint pain right, knee Joint swelling mild morning stiffness Physical Examination Category Sub-Category Detail Notes MDHAQ Summary Function (0-10):: 2.7 Pain (0-10):: 7.5 Patient Global Assessment of Disease Activity (0 -10):: 2.5 RAPID3 Score (0-30):: 12.7 Physician Global Assessment of Disease Activity (0-10):: 4 Prognosis Very Good w/tx Erosive Damage No
--- OUTSIDE RECORDS SUMMARY | 2024-11-14 15:16 | XMS_ITS | Encounter Summary ---
Author Organization [facility] Health Address [address] [place] [address] Care Team Providers Care Rubber Grinder Name Role Phone Taniya Staton MD, German Lofton Primary Care Provider [phone] Shereen Mckeon MD Primary Care Provider [phone] Encounter Details Date Type Department Care Team (Late st Contact Info) Description 07/27/2018 [facility] Outpatient Visit [facility] Orthopedics - Radiology [address] [place] [address] [place] [address] Document, Scanned Social History Tobacco Use Types [...] < 140/90 Blood Pressure 112/74(2023 9:31 AM MATHEMATICS ACADEMIC CHAIR) Camila Hoang Note: Caring for Your High [...] Related Tools, and click H BP Trackers. [id number] or ( ) National Heart, Lung and Blood Donald: http://www.nhlbi.nih.gov/health/infoctr/index.htm documented as of this encounter Visit Diagnoses Not on filedocumented in this encounter Additional Health Concerns Infection Onset Date Last Indicated Resolved Time COVID-19 Under Investigation 06/20/2023 06/20/2023 06/20/2023 9:18 AM CDT documented as of this encounter Care Teams Rubber Grinder Relationship Specialty Start Date End Date German Monahan Jr., MD [address] [place] [phone] PCP - General 05/12/08 09/26/21 Shereen Mckeon MD [address] [place] [address] [address] [place] [id number] PCP - General Internal Medicine 09/27/21 documented as of this encounter
--- OUTSIDE RECORDS SUMMARY | 2024-11-14 15:16 | XMS_ITS | Clinical Summary ---
Author Organization [facility] gate5 Address [address] [place] [address] Care Team Providers Care Cloth Napping Supervisor Name Role Phone Shereen Mckeon MD Primary Care Provider [phone] Source Comments [facility] Affiliates and Associated Physician Practices is amultiple site organization consisting of ambulatory clinics and hospital sitesin [place], [place], [place] and [place]. This disclosure is being madepursuant to the Care Everywhere program and may not contain all information available regarding this patient. Last updated 18.[facility] gate5 Allergies Active Allergy Reactions Criticality Noted Date Comments Bactrim 05/12/2008 Ciprofloxacin Hydrochloride Rash Low 05/12/20 08 hives Sulindac Nausea 08/04/2008 Paroxetine Other 07/17/2010 insomnia Medications * Be aware that medications may not be up to date on this document. Alwaysverify current medications with the patient. Medication Sig Dispensed Refills Start Date End Date Status [place]-3 Fatty Acids (FISH OIL PO) Active Multiple [...] (04/16/2022): 02/2022 needs PP urbano for 08/2022/ wesk ag pain face, felt tired,fever - chills. [...] arthroscopy 09/06/2008 Overview (09/06/2008): Dex knees Poss. [place] schluters Essential hypertension, benign 08/16/2008 Overview (12/12/2022): lisinopril decrease K / amlodipine started Insomnia Other testicular hypofunction Resolved Problems Problem Noted Date Diagnosed Date Resolved Date Gouty arthropathy 08/12/2008 12/10/2010 Encounters Date Type Department Care Team Description 11/05/2024 Orders Only [facility] - Internal Medicine [address] [place] [phone] Marcella Marquez APRN-CNP 10/04/2024 11:46 AM FIELD AGENT - 10/04/2024 11:59 PM FIELD AGENT Hospital Encounter [facility] Imaging Services - CT Scan [address] [place] [address] Marcella Marquez APRN-CNP Discharge Disposition: Home or Self Care 10/04/2024 9:45 AM FIELD AGENT Office Visit [facility] Internal Medicine [address] [place] [phone] Marcella Marquez APRN-CNP Annual physical exam (Primary Dx); LLQ pain; Screening PSA (prostate specific antigen); Essential hypertension 10/04/2024 Travel 09/27/2024 1:30 PM FIELD AGENT Procedure visit [facility] Urology [address], [address] [place] [address] Kendall Greene MD Peyronie's disease 09/27/2024 Travel 09/20/2024 3:15 PM FIELD AGENT Office Visit [facility] Orthopedics [address] [place] [address] Ar Arreaga, SAMUEL Glenohumeral arthritis, left (Primary Dx) 09/20/2024 Travel 09/17/2024 Refill [facility] Internal Medicine [address] [place] [phone] Shereen Mckeon MD Med Change Request 09/15/2024 Refill [facility] Internal Medicine [address] [place] [phone] Shereen Mckeon MD Med Change Request 09/13/2024 1:30 PM FIELD AGENT Procedure visit [facility] Urology [address] , [address] [place] [address] Kendall Greene MD Peyronie's disease 09/13/2024 Travel 08/30/2024 1:30 PM FIELD AGENT Procedure visit [facility] - Urology [address] , [address] [place] [phone] Kendall Greene MD Peyronie's disease 08/30/2024 Travel 08/23/2024 3:20 PM FIELD AGENT Office Visit [facility] Internal Medicine [address] [place] [address] [address] [place] [phone] Verenice Dickens, DIGITAL ASSOCIATE-CARDIAC CARE UNIT NURSE Current moderate episode of major depressive disorder, unspecified whether recurrent (HCC) (Primary Dx); Marijuana smoker, episodic; Insomnia, unspecified type 08/23/2024 Travel 08/19/2024 Telephone [facility] Internal Medicine [address] [place] [phone] Shereen Mckeon MD INSOMNIA 08/16/2024 1:30 PM FIELD AGENT Procedure visit [facility] - Urology [address] , [address] [place] [phone] Kendall Greene MD Peyronie's disease 08/16/2024 Travel 08/15/2024 Refill [facility] Internal Medicine [address] [place] [phone] Shereen Mckeon MD Refill Request from Last 3 Months Immunizations Name Administration Dates Next Due INFLUENZA [...] Zoster Hzv Vacc Recombinant Inj Im 09/17/2020, Family History Medical History Relation Name Comments Colon polyps Father hx of partial c olectomy for diverticulitis Cancer - Colon Neg Hx Malignant Hyperthermia Neg Hx Relation Name Status Comments Father Social History Tobacco Use Types Packs/Day Years [...] Comments Blood Pressure 112/74 10/04/2024 9:31 AM FIELD AGENT Pulse 56 10/04/2024 9:31 AM FIELD AGENT Temperature 36.4 C (97.5 F) 10/04/2024 9:31 AM FIELD AGENT Respiratory Rate 16 10/03/2023 1:32 PM FIELD AGENT Oxygen Saturation 98% 10/04/2024 9:31 AM FIELD AGENT Inhaled Oxygen Concentration - - Weight 88.9 kg (196 lb) 10/04/2024 9:31 AM FIELD AGENT Height 177.8 cm (5' 10 ) 06/14/2024 2:29 PM CDT Body Mass Index 28.12 06/14/2024 2:29 PM CDT Plan of Treatment Health Maintenance Due Date Last Done Comments MARK (AGES 45-75) - COLON CA SCREENING 1960 CT COLONOGRAPHY - COLON CA SCREENING 1962 FIT - COLON CA SCREENING 1962 FLEX SIG - COLON CA SCREENING 1962 HIV SCREENING 1977 HEPATITIS B VACCINE (2 of 3 - Hep B Twinrix 3-dose series) 06/15/2008 05/18/2008 PNEUMOCOCCAL VACCINE 50+ (2 of 2 - PPSV23) 2012 07/19/2009 DEPRESSION SCREENING 10/06/2024 12/29/2023, 11/08/2022, 04/16/2022 COLON MONITORING 12/17/2024 12/17/2021, , 08/17/2018, Additional history exists Colorectal Cancer Screening 12/17/2024 SCREENING FOR DIABETES 11/05/2027 , 01/19/2024, 10/03/2023, Additional history exists DTAP/TDAP/TD VACCINES (2 - Td or Tdap) 08/10/2028 08/10/2018 LIPID TESTING 11/05/2029 11/05/2024, 08/07, 08/15/2021, Additional history exists COLONOSCOPY - COLON CA SCREENING 12/18/2031 12/17/2021, 08/17/2018, 07/07/2017, Additional history exists HEPATITIS C SCREENING Completed 10/22/2018 ZOSTER VACCINE Completed 09/17/2020, 06/21/2020 Respiratory Syncytial Virus (RSV) Vaccine Pt: or over 60 yrs Completed 08/27/2023 COVID-19 VACCINE Completed 08/18/2024, 06/2023, 06/23/2022, Additional history exists INFLUENZA VACCINE Completed 08/18/2024, , 06/23/2022, Additional history exists HIB VACCINE Aged Out No longer eligi ble based on patient's age to complete this topic HPV VACCINE Aged Out No longer eligi ble based on patient's age to complete this topic MENINGOCOCCAL (Group B) VACCINE Aged Out No longer eligible based on patient's age to complete this topic MENINGOCOCCAL VACCINE Aged Out No cyndee kasie eligible based on patient's age to complete this topic Goals Goal Patient Goal Type Associated Problems Recent Progress Patient-Stated? Author Blood Pressure < 140/90 Blood Pressure 112/74(2023 9:31 AM FIELD AGENT) Camila Hoang Note: Caring for Your High [...] Where can I go for more information? [place] Heart Association National Center: http://www.americanheart.org 1. In the top header, click C onditions . 2. In the top header, click h igh blood pressure. 3. For a printable blood pressure tracker, scroll toward the bottom of the page to Related Tools, and click H BP Trackers. [id number] or ( ) National Heart, Lung and Blood [place]: http://www.nhlbi.nih.gov/health/infoctr/index.htm Medical Devices Implanted Type Area Stone Repairer Device Identifier Shelf Expiration Date Model / Serial / Lot Endo Sabine Articulating Reload Implanted:Qty: 1 on 05/27/2013 at [facility] 12/04/2017 [id number] / / [id number] Description:60 mm Endo Sabine Reload 60mm Implanted:Qty: 2 on 05/27/2013 at [facility] 03/06/2018 [id number] / / [id number] Endo Sabine Articulating Reload, 60mm Implanted:Qty: 1 on 05/27/2013 at [facility] 04/05/2018 [id number] / / [id number] Autosuture Dst Series 28 Xl Eea Implanted:Qty: 1 on 05/27/2013 at [facility] 12/04/2016 [id number] / / [id number] [place] Sut Pushlock 2.9mm Bcmps 12.5mm Implanted:Qty: 1 on 09/17/2018 by Jayjay Prieto MD at [facility] Left: Shoulder [employer] 03/05/2020 [id number] / / [id number] [place] Sut Pushlock 2.9mm Bcmps 12.5mm Implanted:Qty: 2 on 09/17/2018 by Jayjay Prieto MD at [facility] Left: Shoulder [employer] 06/05/2020 [id number] / / [id number] [place] Sut Fibertak Suturetape 1.3mm Implanted:Qty: 1 on 09/17/2018 by Jayjay Prieto MD at [facility] Left: Shoulder [employer] 01/03/2023 [id number] / / [id number] [place] Sut Pushlock 2.9mm Bcmps 12.5mm Implanted:Qty: 1 on 09/17/2018 by Jayjay Prieto MD at [facility] Left: Shoulder [employer] 05/05/2020 [id number] / / [id number] [place] Sut Pushlock 2.9mm Bcmps Roland Implanted:Qty: 1 on 09/17/2018 by Jayjay Prieto MD at [facility] Left: Shoulder [employer] 02/03/2020 [id number] / / [id number] Procedures Procedure Name Priority Date/Time Associated Diagnosis Comments PROSTATE SPECIFIC ANTIGEN SCREEN 11/05/2024 6:59 AM FIELD AGENT CBC W AUTO DIFFERENTIAL 11/05/2024 6:59 AM FIELD AGENT COMPREHENSIVE METABOLIC PANEL 11/05/2024 6:59 AM FIELD AGENT LIPID PROFILE 11/05/2024 6:59 AM FIELD AGENT ISTAT CREATININE Routine 10/04/2024 1:[address] ABDOMEN PELVIS W CONTRAST Routine 10/04/2024 1:45 PM FIELD AGENT LLQ pain TOXASSURE SELECT Routine 08/23/2024 3:56 PM FIELD AGENT Current moderate episode of major depressive disorder, unspecified whether recurrent (HCC) Marijuana smoker, episodic ENDOSCOPY, COLON, SCREENING Routine 12/17/2021 History of adenomatous polyp of colon - multiple polyps, large polyps, serrated adenoma Serrated polyp of colon Family history of colonic polyps HEPATITIS C ANTIBODY W RFLX PCR Routine 10/22/2018 9:26 AM FIELD AGENT Routine general medical examination at a health care facility from Last 3 Months or Most Recently Relevant to Health Maintenance Results * CBC WITH DIFFERENTIAL (11/05/2024 6:59 AM FIELD AGENT) White Blood Cell Count 8.2 3.8 - [...] 0.5 % [facility] Comment: Test Performed at: [facility] [place] [address] BRIGIDO SHELTON MD 11/05/2024 6:59 AM FIELD AGENT 11/05/2024 7:01 AM FIELD AGENT Marcella Marquez DIGITAL ASSOCIATE-CARDIAC CARE UNIT NURSE LAB - SOL TOLOGY ORDERABLES [facility] [address] [place] [address] * COMPREHENSIVE METABOLIC PANEL (11/05/2024 6:59 AM FIELD AGENT) Glucose 95 65 - 99 mg/dL [facility] Comment: Fasting reference interval BUN 19 7 - 25 mg/dL [facility] Creatinine 0.84 0.70 - 1.35 mg/dL [facility] eGFR by Cystatin C 99 > OR = 60 mL/min/1. 73m2 [facility] BUN/Creatinine Ratio SEE NOTE: (calc) [facility] Comment: Not Reported: BUN and [...] 46 U/L [facility] Comment: Test Performed at: [employer] [id number] [facility] [place] [address] BRIGIDO SHELTON MD 11/05/2024 6:59 AM FIELD AGENT 11/05/2024 7:01 AM FIELD AGENT Marcella Marquez DIGITAL ASSOCIATEZero Gravity Solutions LAB - CHEM ISTRY ORDERABLES Performing Organization Address [facility] de Phone Number [place] [phone] * PROSTATE SPECIFIC ANTIGEN SCREEN (11/05/2024 6:59 AM FIELD AGENT) PSA 0.75 < OR = 4.00 ng/mL [facility] Comment: The total PSA value from this assay system is standardized against the WHO standard. The test result will be approximately 20% lower when compared to the equimolar-standardized total PSA (Aniyah [place]). Comparison of serial PSA results should be interpreted with this fact in mind. This test was performed using the Siemens chemiluminescent method. Values obtained from different assay methods cannot be used interchangeably. PSA levels, regardless of value, should not be interpreted as absolute evidence of the presence or absence of disease. Test Performed at: [employer] [address] [place] [address] BRIGIDO SHELTON MD 11/05/2024 6:59 AM FIELD AGENT 11/05/2024 7:01 AM FIELD AGENT Marcella Marquez DIGITAL ASSOCIATESinapis PharmaCARDIAC CARE UNIT NURSE LAB - CHEM ISTRY ORDERABLES Performing Organization Address [facility] Phone Number [place] [phone] [place] [address] * LIPID PROFILE (11/05/2024 6:59 AM FIELD AGENT) Cholesterol 160 <200 mg/dL [facility] HDL Cholesterol [...] LDL-C. German MCDERMOTT et al. FAUZIA. 2013;310(19): 6628-6754 (http://education.Cirrascale/faq/DLW986) CHOL/HDLC RATIO 3.0 <5.0 (calc) [facility] Non HDL Cholesterol 107 <130 mg/dL (calc) [facility] Comment: For patients with diabetes plus 1 major ASCVD risk factor, treating to a non-HDL-C goal of <100 mg/dL (LDL-C of <70 mg/dL) is considered a therapeutic option. Test Performed at: [employer] [id number] [facility] [place] [place] [address] BRIGIDO SHELTON MD 11/05/2024 6:59 AM FIELD AGENT 11/05/2024 7:01 AM FIELD AGENT Marcella Marquez APRN-CARDIAC CARE UNIT NURSE LAB - CHEM ISTRY ORDERABLES [facility] [place] [address] [place] [address] * ISTAT CREATININE (10/04/2024 1:59 PM FIELD AGENT) Sample iSTAT GRICELDA 10/04/2024 2:01 PM FIELD AGENT [facility] Creatinine POCT 0.8 0.5 - 1.3 mgdL 10/04/2024 2:01 PM FIELD AGENT [facility] Blood BLOOD SPECIMEN / Unknown 10/04/2024 1:59 PM FIELD AGENT 10/04/2024 2:01 PM FIELD AGENT Marcella Marquez APRN-CARDIAC CARE UNIT NURSE LAB - POIN T OF CARE ORDERABLES [facility] [address] * CT Abdomen Pelvis W Contrast (10/04/2024 1:45 PM FIELD AGENT) Anatomical Region Laterality Modality Abdomen, Pelvis Computed Tomogra phy 10/04/2024 2:24 PM FIELD AGENT Impressions 10/04/2024 2:29 PM FIELD AGENT IMPRESSION: 1. Inflammatory change adjacent to the [...] 10/04/2024 2:29 PM Narrative 10/04/2024 2:29 PM FIELD AGENT PROCEDURE: CT ABDOMEN PELVIS W CONTRAST DATE/TIME [...] Ramos MD on 10/04/2024 2:29 PM Marcella Marquez DIGITAL ASSOCIATE-CARDIAC CARE UNIT NURSE CT ORDERAB LES * TOXASSURE SELECT URINE (08/23/2024 3:56 PM FIELD AGENT) Summary FINAL [facility] INSURANCE BILL Comment: TOXASSURE SELECT 13 (MW) Test Result Flag Units NO DRUGS DETECTED. Test Result Flag Units Ref Range Creatinine 29 mg/dL >=20 Declared Medications: Medication list was not provided. For clinical consultation, please call . URINE SPECIMEN OBTAINED BY CLEAN CATCH PROCEDURE / Unknown 08/23/2024 3:56 PM FIELD AGENT 08/23/2024 Narrative [facility] INSURANCE BILL - 08/29/2024 3:07 PM FIELD AGENT Performed at: 01 - [employer] [address] [place] [id number] Doctor Of Nursing Practice: [facility], Phone: [phone] Specimen Comment: [employer], [employer] FLEX or MAT drug testing: Specimen Comment: -Technical component - Data analysis performed at Specimen Comment: [address], [place] [address]. Verenice Dickens APRN-CARDIAC CARE UNIT NURSE LAB - URINE CHEMISTRY ORDERABLES Performing Organization Address [facility] Co de Phone Number [facility] INSURANCE BILL [address] [place] [address] * ENDOSCOPY, COLON, SCREENING (12/17/2021) Angel Coyle MD GI PROCEDURE ORDERAB LES Performing Organization Address [facility] Co de Phone Number [facility] RESULT SCAN * HEPATITIS C ANTIBODY W RFLX PCR (10/22/2018 9:26 AM FIELD AGENT) Hepatitis C Antibody 0.1 0.0 - 0.9 s/co ratio [facility] ACCOUNT BILL Blood BLOOD SPECIMEN / Unknown 10/22/2018 9:26 AM FIELD AGENT 10/22/2018 Narrative Resulting Agency Comment [facility] [address] [facility] [phone] German Monahan Jr., MD LAB - CHEMISTRY O RDERABLES [facility] ACCOUNT BILL [address] [place] [address] from Last 3 Months or Most Recently Relevant to Health Maintenance Advance Directives Documents on File Type Date Recorded Patient Rag Baler Expl anation Adv Directive/Living Will/POA 06/02/2013 7:12 PM * FULL RESUSCITATION (Latest Code Status on File) Date Activated Date Inactivated Comments 05/27/2013 4:48 PM 06/01/2013 12:04 PM Care Teams Cloth Napping Supervisor Relationship Specialty Start Date End Date Shereen Mckeon MD [address] [place] [address] PCP - General Internal Medicine 09/27/21
--- OUTSIDE RECORDS SUMMARY | 2024-11-14 15:16 | XMS_ITS | Patient Health Summary ---
Author Organization [facility] Address [address] [place] [address] Care Team Providers Care Film Touch Up Inspector Name Role Phone Shereen Mckeon MD Primary Care Provider [phone] Note from [facility],non-owned Affiliates and Associated Physician Practices is amultiple site organization consisting of ambulatory clinics and hospital sitesin [place], [place], [place] and [place]. This disclosure is being madepursuant to the Care Everywhere program and may not contain all information available regarding this patient. Last updated 18.[facility] Allergies * Bactrim * Ciprofloxacin Hydrochloride(Rash) -Low Criticality * Sulindac(Nausea) * Paroxetine(Other) Medications * Be aware that medications may not be up to date on this document. Alwaysverify current medications with the patient. * [place]-3 Fatty Acids (FISH OIL PO) * Multiple Vitamin (MULTIVITAMIN+ PO) * allopurinol (ZYLOPRIM) 100 MG tablet Take 1 (one) tablet by mouth once daily Arthritis consulatant * OMEPRAZOLE PO Take by mouth once daily * cetirizine (ZyrTEC) 10 MG chew tablet Take 1 (one) tablet by mouth once daily * lisinopril (Prinivil; Zestril) 10 MG tablet(Started 08/16/2024) Take 1 (one) tablet by mouth once daily Reasons: High Blood Pressure * colchicine 0.6 MG tablet Take 1 (one) tablet by mouth as needed (inflammation) Gout flareup Active Problems Problem Noted Date Diagnosed Date COVID-19 02/2022 paxlovid 04/16/2022 Generalized anxiety disorder 04/15/2022 Gastroesophageal reflux disease with esophagitis 08/05/2019 Post-operative state, left s houlder labral repair dos 09-17-18 10/30/2018 Gouty arthritis 08/10/2018 GERD without esophagitis 08/10/2018 Diverticulosis of colon 07/09/2017 History of adenomatous polyp of colon - multiple polyps, large polyps, serrated adenoma 01/04/2013 Internal hemorrhoids 01/04/2013 Rectosigmoid diverticulitis recurrent s/p coloct otis 11/27/2012 S/P arthroscopy 09/06/2008 Essential hypertension, benign 08/16/2008 Insomnia Other testicular hypofunction Resolved Problems Problem Noted Date Diagnosed Date Resolved Date Gouty arthropathy 08/12/2008 12/10/2010 Immunizations * INFLUENZA VACCINE, TRIV. (AFLURIA, FLUZONE TRIVALENT; 6MO+) (IIV3)(Given 07/19/2009) * COVID MODERNA 12+ yr 50mcg/0.5mL(Given 07/14/2023) * COVID PFIZER 12+YR 30MCG/0.3mL(Given 08/18/2024) * COVID PFIZER BIVALENT 12Y+ 30mcg/0.3ML(Given 06/23/2022) * Covid Pfizer primary monovalent 12+ yr 0.3mL Purple cap(Given 07/03/2021, 12/04/2020, 11/15/2020, 10/25/2020) * HEP A/HEP B(Given 05/18/2008) * INFLUENZA VACCINE, CELL CULTURE, TRIV. (FLUCELVAX TRIVALENT; 6MO+), 0.5 ML (CCIIV3)(Given 08/18/2024) * INFLUENZA VACCINE, QUADR. (FLUZONE; FLULAVAL; FLUARIX; AFLURIA QUADRIVALENT; 6MO+), 0.5 ML (IIV4)(Given 07/14/2023, 06/23/2022, 07/03/2021, 06/21/2020) * PNEUMOCOCCAL PCV VACCINE(Given 07/19/2009) * RSV AREXVY 60YR+ 0.5ML(Given 08/27/2023) * TDAP (7yrs+)(Given 08/10/2018) * Zoster Hzv Vacc Recombinant Inj Im(Given 09/17/2020, 06/21/2020) Social History Tobacco Use Types Packs/Day Years [...] Comments Blood Pressure 112/74 10/04/2024 9:31 AM BILINGUAL RECEPTIONIST Pulse 56 10/04/2024 9:31 AM BILINGUAL RECEPTIONIST Temperature 36.4 C (97.5 F) 10/04/2024 9:31 AM BILINGUAL RECEPTIONIST Respiratory Rate 16 10/03/2023 1:32 PM BILINGUAL RECEPTIONIST Oxygen Saturation 98% 10/04/2024 9:31 AM BILINGUAL RECEPTIONIST Inhaled Oxygen Concentration - - Weight 88.9 kg (196 lb) 10/04/2024 9:31 AM BILINGUAL RECEPTIONIST Height 177.8 cm (5' 10 ) 06/14/2024 2:29 PM CDT Body Mass Index 28.12 06/14/2024 2:29 PM CDT Medical Devices Implanted Type Area Agricultural Production Engineer Device Identifier Shelf Expiration Date Model / Serial / Lot Endo Sabine Articulating Reload Implanted:Qty: 1 on 05/27/2013 at [facility] 12/04/2017 [id number] / / [id number] Description:60 mm Endo Sabine Reload 60mm Implanted:Qty: 2 on 05/27/2013 at [facility] 03/06/2018 [id number] / / [id number] Endo Sabine Articulating Reload, 60mm Implanted:Qty: 1 on 05/27/2013 at [facility] 04/05/2018 [id number] / / [id number] Autosuture Dst Series 28 Xl Eea Implanted:Qty: 1 on 05/27/2013 at [facility] 12/04/2016 [id number] / / [id number] [place] Sut Pushlock 2.9mm Bcmps 12.5mm Implanted:Qty: 1 on 09/17/2018 by Jayjay Prieto MD at [facility] Left: Shoulder [employer] 03/05/2020 [id number] / / [id number] [place] Sut Pushlock 2.9mm Bcmps 12.5mm Implanted:Qty: 2 on 09/17/2018 by Jayjay Prieto MD at [facility] Left: Shoulder [employer] 06/05/2020 [id number] / / [id number] [place] Sut Fibertak Suturetape 1.3mm Implanted:Qty: 1 on 09/17/2018 by Jayjay Prieto MD at [facility] Left: Shoulder [employer] 01/03/2023 [id number] / / [id number] [place] Sut Pushlock 2.9mm Bcmps 12.5mm Implanted:Qty: 1 on 09/17/2018 by Jayjay Prieto MD at [facility] Left: Shoulder [employer] 05/05/2020 [id number] / / [id number] [place] Sut Pushlock 2.9mm Bcmps Roland Implanted:Qty: 1 on 09/17/2018 by Jayjay Prieto MD at [facility] Left: Shoulder [employer] 02/03/2020 [id number] / / [id number] Procedures * PROSTATE SPECIFIC ANTIGEN SCREEN(Performed 11/05/2024) * CBC W AUTO DIFFERENTIAL(Performed 11/05/2024) * COMPREHENSIVE METABOLIC PANEL(Performed 11/05/2024) * LIPID PROFILE(Performed 11/05/2024) * ISTAT CREATININE(Performed 10/04/2024) * CT ABDOMEN PELVIS W CONTRAST(Performed 10/04/2024) Performed for LLQ pain * TOXASSURE SELECT(Performed 08/23/2024) Performed for Current moderate episode of major depressive disorder, unspecified whether recurrent (HCC), Marijuana smoker, episodic * CARDIAC STRESS TEST ORDER(Performed 02/26/2024) * ECHO COMPLETE(Performed 02/18/2024) Performed for Chest pain, unspecified type, Essential hypertension * STRESS TEST(Performed 02/18/2024) Performed for Chest pain, unspecified type, Essential hypertension * EKG 12-LEAD(Performed 02/04/2024) Performed for Chest pain, unspecified type * COMPREHENSIVE METABOLIC PANEL(Performed 01/19/2024) Performed for Essential hypertension * CBC W AUTO DIFFERENTIAL(Performed 01/19/2024) Performed for Essential hypertension * IMAGING/RADIOLOGY/XRAY RESULTS ORDER(Performed 01/18/2024) * IMAGING/RADIOLOGY/XRAY RESULTS ORDER(Performed 01/18/2024) * LAB RESULTS ORDER(Performed 01/18/2024) * INFLUENZA A+B - POINT OF CARE (AMB)(Performed 12/29/2023) Performed for Diarrhea of infectious origin * IMAGING/RADIOLOGY/XRAY RESULTS ORDER(Performed 10/04/2023) * COMPREHENSIVE METABOLIC PANEL(Performed 10/03/2023) Performed for Black tarry stools * CBC W AUTO DIFFERENTIAL(Performed 10/03/2023) Performed for Black tarry stools * XR SHOULDER LEFT 2VW OR MORE(Performed 07/09/2023) Performed for Chronic left shoulder pain * XR CHEST 2VW(Performed 06/20/2023) Performed for Sensation of chest tightness * STREP A SCREEN - POINT OF CARE (AMB)(Performed 06/20/2023) Performed for Sore throat * SARS-COV-2 (COVID-19) AG (AMB) POCT(Performed 06/20/2023) Performed for Sore throat * EKG 12-LEAD(Performed 06/20/2023) Performed for Sensation of chest tightness * MRI SHOULDER LEFT WO CONTRAST(Performed 05/08/2023) Performed for Chronic left shoulder pain * BASIC METABOLIC PANEL (CALCIUM TOTAL)(Performed 11/08/2022) Performed for Hyperkalemia * BASIC METABOLIC PANEL (CALCIUM TOTAL)(Performed 10/01/2022) Performed for Hyperkalemia * CBC W AUTO DIFFERENTIAL(Performed 09/10/2022) Performed for Leukocytosis, unspecified type * COMPREHENSIVE METABOLIC PANEL(Performed 09/10/2022) Performed for Elevated alkaline phosphatase level * PROSTATE SPECIFIC ANTIGEN SCREEN(Performed 08/27/2022) Performed for Prostate cancer screening * LIPID PROFILE(Performed 08/27/2022) Performed for Annual physical exam * CBC W AUTO DIFFERENTIAL(Performed 08/27/2022) Performed for Annual physical exam * COMPREHENSIVE METABOLIC PANEL(Performed 08/27/2022) Performed for Essential hypertension, benign * BASIC METABOLIC PANEL (CALCIUM TOTAL)(Performed 04/16/2022) Performed for Essential hypertension, benign * PATHOLOGY TISSUE EXAM (STL)(Performed 12/17/2021) Performed for Post-operative state, left shoulder labral repair dos 12-13-18, GERD without esophagitis, Gouty arthritis, Diverticulosis of colon, Internal hemorrhoids, History of adenomatous polyp ofcolon - multiple polyps, large polyps, serrated adenoma, Rectosigmoid diverticulitis recurrent s/p coloctomy, S/P arthroscopy, Essential hypertension, benign, Arthritis gout suspected-- Rose * ENDOSCOPY, COLON, SCREENING(Performed 12/17/2021) Performed for History of adenomatous polyp of colon - multiple polyps, large polyps, serrated adenoma, Serrated polyp of colon, Family history of colonic polyps * CBC W AUTO DIFFERENTIAL(Performed 12/06/2021) Performed for Leukocytosis, unspecified type * URINALYSIS NO MICROSCOPIC NO CULTURE(Performed 08/15/2021) Performed for Dysuria * PROSTATE SPECIFIC ANTIGEN SCREEN(Performed 08/15/2021) Performed for Prostate cancer screening * LIPID PROFILE(Performed 08/15/2021) Performed for Physical exam, annual * COMPREHENSIVE METABOLIC PANEL(Performed 08/15/2021) Performed for Physical exam, annual * CBC W AUTO DIFFERENTIAL(Performed 08/15/2021) Performed for Physical exam, annual * TESTOSTERONE TOTAL(Performed 08/15/2020) Performed for Low testosterone in male, Physical exam, annual, Fatigue, unspecified type * PROSTATE SPECIFIC ANTIGEN SCREEN(Performed 08/15/2020) Performed for Physical exam, annual, Fatigue, unspecified type * LIPID PROFILE(Performed 08/15/2020) Performed for Physical exam, annual * COMPREHENSIVE METABOLIC PANEL(Performed 08/15/2020) Performed for Physical exam, annual * CBC W AUTO DIFFERENTIAL(Performed 08/15/2020) Performed for Physical exam, annual * FL GUIDED NEEDLE PLACEMENT(Performed 07/04/2020) Performed for Right hip pain * XR HIP RIGHT 2VW OR MORE(Performed 06/26/2020) Performed for Acute right-sided low back pain without sciatica, Sacroiliitis (HCC) * XR LUMBAR SPINE 2 OR 3VW(Performed 06/26/2020) Performed for Acute right-sided low back pain without sciatica, Sacroiliitis (HCC) * XR KNEE LEFT 4VW OR MORE(Performed 10/19/2019) Performed for Left knee pain, unspecified chronicity * XR PELVIS W RIGHT HIP 1VW(Performed 10/19/2019) Performed for Right hip pain * T4 FREE(Performed 08/13/2019) Performed for Routine general medical examination at health care facility * TESTOSTERONE FREE+TOTAL PANEL(Performed 08/13/2019) Performed for Routine general medical examination at health care facility * PROSTATE SPECIFIC ANTIGEN SCREEN(Performed 08/13/2019) Performed for Routine general medical examination at health care facility * LIPID PROFILE(Performed 08/13/2019) Performed for Routine general medical examination at health care facility * TSH REFLEX FREE T4(Performed 08/13/2019) Performed for Routine general medical examination at health care facility * COMPREHENSIVE METABOLIC PANEL(Performed 08/13/2019) Performed for Routine general medical examination at health care facility * CBC W AUTO DIFFERENTIAL(Performed 08/13/2019) Performed for Routine general medical examination at health care facility * HELICOBACTER PYLORI UREASE (STL)(Performed 08/05/2019) Performed for Gastro-esophageal reflux disease with esophagitis, Other gastritis without bleeding * EGD(Performed 08/05/2019) Performed for Gastroesophageal reflux disease, esophagitis presence not specified * CT ABDOMEN PELVIS W CONTRAST(Performed 08/02/2019) Performed for Abdominal pain, LLQ (left lower quadrant), Diverticulitis of colon * CREATININE BLOOD - POINT OF CARE (IP)(Performed 08/02/2019) Performed for Diverticulitis of colon, Abdominal pain, LLQ (left lower quadrant) * COMPREHENSIVE METABOLIC PANEL(Performed 08/02/2019) Performed for Diverticulitis of colon * CBC W AUTO DIFFERENTIAL(Performed 08/02/2019) Performed for Diverticulitis of colon * PERIPHERAL BLOCK(Performed 02/15/2019) * CT ABDOMEN PELVIS W CONTRAST(Performed 10/22/2018) Performed for Diverticulitis of colon, Left lower quadrant pain * CREATININE BLOOD - POINT OF CARE (IP)(Performed 10/22/2018) Performed for Diverticulitis of colon, Left lower quadrant pain * INTERPRETATION REFLEXED(Performed 10/22/2018) Performed for Routine general medical examination at a health care facility * COMPREHENSIVE METABOLIC PANEL(Performed 10/22/2018) Performed for Routine general medical examination at a health care facility * TSH REFLEX FREE T4(Performed 10/22/2018) Performed for Routine general medical examination at a health care facility * PROSTATE SPECIFIC ANTIGEN SCREEN(Performed 10/22/2018) Performed for Routine general medical examination at a health care facility * LIPID PROFILE(Performed 10/22/2018) Performed for Routine general medical examination at a health care facility * CBC W AUTO DIFFERENTIAL(Performed 10/22/2018) Performed for Routine general medical examination at a health care facility * HEMOGLOBIN A1C(Performed 10/22/2018) Performed for Routine general medical examination at a health care facility * URIC ACID BLOOD(Performed 10/22/2018) Performed for Routine general medical examination at a health care facility * HEPATITIS C ANTIBODY W RFLX PCR(Performed 10/22/2018) Performed for Routine general medical examination at a health care facility * CBC W AUTO DIFFERENTIAL(Performed 10/22/2018) Performed for Diverticulitis of colon, Left lower quadrant pain * IMAGING/RADIOLOGY/XRAY RESULTS ORDER(Performed 09/23/2018) * LAB RESULTS ORDER(Performed 09/23/2018) * CARDIAC RHYTHM STRIP ORDER(Performed 09/19/2018) * IMAGING/RADIOLOGY/XRAY RESULTS ORDER(Performed 09/19/2018) * ENDOTRACHEAL TUBE NOTE(Performed 09/17/2018) * ARTHROSCOPY SHOULDER LABRAL REPAIR(Performed 09/17/2018) Performed for Labral tear of shoulder, left, subsequent encounter * PATHOLOGY TISSUE EXAM (STL)(Performed 08/17/2018) Performed for Personal history of colonic polyps, Benign neoplasm of cecum, Benign neoplasm of ascending colon, Benign neoplasm of transverse colon, Rectal polyp, Other hemorrhoids, Intestinal bypassand anastomosis status * ENDOSCOPY, COLON, SCREENING(Performed 08/17/2018) Performed for Serrated adenoma of colon * MRI SHOULDER LEFT W CONTRAST(Performed 12/31/2017) Performed for Chronic left shoulder pain * FL SHOULDER LEFT ARTHROGRAM(Performed 12/31/2017) Performed for Chronic left shoulder pain * XR SHOULDER RIGHT 2VW OR MORE(Performed 12/24/2017) Performed for Chronic right shoulder pain * XR TMJ BILATERAL(Performed 10/27/2017) Performed for TMJ (temporomandibular joint disorder) * XR SHOULDER MIN 3 VIEWS LEFT(Performed 10/27/2017) Performed for Pain in joint of left shoulder * MRI ABDOMEN WWO CONTRAST(Performed 10/16/2017) Performed for Abnormal liver function tests * CREATININE BLOOD - POINT OF CARE (IP)(Performed 10/16/2017) Performed for Abnormal liver function tests, Diverticulosis of colon * CREATININE BLOOD - POINT OF CARE (IP)(Performed 10/16/2017) Performed for Abnormal liver function tests * PATHOLOGY TISSUE EXAM (STL)(Performed 07/07/2017) Performed for Benign neoplasm of cecum, Hemorrhoids, unspecified hemorrhoid type, Intestinal bypassor anastomosis status, Left lower quadrant pain, Diverticulosis of large intestine without perforation or abscess without bleeding, Arthritis gout suspected-- Rose, Essential hypertension, benign, S/P arthroscopy, Rectosigmoid diverticulitis recurrent s/p coloctomy, History of adenomatous polyp of colon - multiple polyps, large polyps, serrated adenoma, Internal hemorrhoids * ENDOSCOPY, COLON, DIAGNOSTIC(Performed 07/07/2017) Performed for Abdominal pain, LLQ (left lower quadrant), Diverticulitis of colon * CT ABDOMEN PELVIS W CONTRAST(Performed 05/27/2017) Performed for Diverticulitis of large intestine without bleeding, unspecified complication status * CT ABDOMEN PELVIS W CONTRAST(Performed 05/14/2017) Performed for Abdominal pain, LLQ (left lower quadrant) * LIPASE BLOOD(Performed 05/08/2017) Performed for Abdominal pain, LLQ (left lower quadrant) * COMPREHENSIVE METABOLIC PANEL(Performed 05/08/2017) Performed for Abdominal pain, LLQ (left lower quadrant) * CBC W AUTO DIFFERENTIAL(Performed 05/08/2017) Performed for Abdominal pain, LLQ (left lower quadrant) * XR CERVICAL SPINE 4 OR 5VW(Performed 10/04/2016) Performed for Neck pain * XR KNEE LEFT 3VW(Performed 06/17/2016) Performed for Acute pain of left knee * STREP A SCREEN - POCT (IP) URGENT CARE(Performed 06/08/2016) * XR CHEST 2VW(Performed 09/09/2015) Performed for Cough * STREP A SCREEN - POCT (IP) URGENT CARE(Performed 09/09/2015) * CULTURE AEROBIC(Performed 02/02/2015) Performed for Nasal discharge * STREP A SCREEN - POINT OF CARE (AMB)(Performed 01/19/2014) Performed for Sore throat * LDL CHOLESTEROL DIRECT(Performed 07/28/2013) Performed for Routine general medical examination at a health care facility, Essential Hypertension, Benign, Insomnia, Rectosigmoid diverticulitis recurrent s/p coloctomy * PROSTATE SPECIFIC ANTIGEN SCREEN(Performed 07/28/2013) Performed for Routine general medical examination at a health care facility, Essential Hypertension, Benign, Insomnia, Rectosigmoid diverticulitis recurrent s/p coloctomy * TSH(Performed 07/28/2013) Performed for Routine general medical examination at a health care facility, Essential Hypertension, Benign, Insomnia, Rectosigmoid diverticulitis recurrent s/p coloctomy * COMPREHENSIVE METABOLIC PANEL(Performed 07/28/2013) Performed for Routine general medical examination at a health care facility, Essential Hypertension, Benign, Insomnia, Rectosigmoid diverticulitis recurrent s/p coloctomy * CBC W AUTO DIFFERENTIAL(Performed 07/28/2013) Performed for Routine general medical examination at a health care facility, Essential Hypertension, Benign, Insomnia, Rectosigmoid diverticulitis recurrent s/p coloctomy * CT ABDOMEN PELVIS W CONTRAST(Performed 06/14/2013) Performed for Fever, Abdominal pain, generalized * XR CHEST 2VW(Performed 06/03/2013) Performed for Pneumonia * CARDIAC RHYTHM STRIP ORDER(Performed 06/02/2013) * CBC W AUTO DIFFERENTIAL(Performed 05/31/2013) * BASIC METABOLIC PANEL (CALCIUM TOTAL)(Performed 05/31/2013) * BASIC METABOLIC PANEL (CALCIUM TOTAL)(Performed 05/29/2013) * BASIC METABOLIC PANEL (CALCIUM TOTAL)(Performed 05/28/2013) * CBC W AUTO DIFFERENTIAL(Performed 05/28/2013) * COLECTOMY CANDY LAPAROSCOPIC HAND ASSISTED(Performed 05/27/2013) Performed for Diverticulitis of colon (without mention of hemorrhage) * PATHOLOGY TISSUE EXAM (STL)(Performed 05/27/2013) Performed for Other specified pre-operative examination * BASIC METABOLIC PANEL (CALCIUM TOTAL)(Performed 05/27/2013) Performed for Other specified pre-operative examination * CBC W AUTO DIFFERENTIAL(Performed 05/27/2013) Performed for Other specified pre-operative examination * LAB RESULTS ORDER(Performed 02/07/2013) * IMAGING/RADIOLOGY/XRAY RESULTS ORDER(Performed 02/07/2013) * PATHOLOGY TISSUE EXAM (STL)(Performed 12/28/2012) Performed for Arthritis gout suspected-- Rose, Insomnia, Other testicular hypofunction, Essential hypertension, benign, S/P arthroscopy, Rectosigmoid diverticulitis * ENDOSCOPY, COLON, DIAGNOSTIC(Performed 12/28/2012) Performed for Rectosigmoid diverticulitis, Abdominal pain, LLQ (left lower quadrant) * CT ABDOMEN PELVIS W CONTRAST(Performed 11/30/2012) Performed for Rectosigmoid diverticulitis, Abdominal pain, LLQ (left lower quadrant) * MRI BRAIN WWO CONTRAST(Performed 02/19/2012) Performed for Orgasmic headache * TESTOSTERONE FREE+TOT MALE PANEL(Performed 01/24/2012) Performed for Routine general medical examination at a health care facility * PROSTATE SPECIFIC ANTIGEN SCREEN(Performed 01/24/2012) Performed for Routine general medical examination at a health care facility * COMPREHENSIVE METABOLIC PANEL(Performed 12/27/2011) Performed for Diverticulitis of colon * CBC W AUTO DIFFERENTIAL(Performed 12/27/2011) Performed for Diverticulitis of colon * ERYTHROCYTE SEDIMENTATION RATE(Performed 02/20/2011) Performed for Cough * COMPREHENSIVE METABOLIC PANEL(Performed 02/20/2011) Performed for Cough * CBC W AUTO DIFFERENTIAL(Performed 02/20/2011) Performed for Cough * XR CHEST 2VW(Performed 02/15/2011) Performed for Bronchitis, acute * STREP A SCREEN - POINT OF CARE (AMB)(Performed 02/12/2011) Performed for Sore throat * URINE MICROSCOPIC ONLY(Performed 12/10/2010) Performed for Routine general medical examination at a health care facility, Arthritis, Insomnia, Other testicular hypofunction, Gout, unspecified, Essential hypertension, benign * TESTOSTERONE FREE+TOT MALE PANEL(Performed 12/10/2010) Performed for Routine general medical examination at a health care facility, Arthritis, Insomnia, Other testicular hypofunction, Gout, unspecified, Essential hypertension, benign * URINALYSIS REFLEX MICROSCOPIC REFLEX CULTURE(Performed 12/10/2010) Performed for Routine general medical examination at a health care facility, Arthritis, Insomnia, Other testicular hypofunction, Gout, unspecified, Essential hypertension, benign * LDL CHOLESTEROL DIRECT(Performed 12/10/2010) Performed for Routine general medical examination at a health care facility, Arthritis, Insomnia, Other testicular hypofunction, Gout, unspecified, Essential hypertension, benign * PROSTATE SPECIFIC ANTIGEN SCREEN(Performed 12/10/2010) Performed for Routine general medical examination at a health care facility, Arthritis, Insomnia, Other testicular hypofunction, Gout, unspecified, Essential hypertension, benign * TSH(Performed 12/10/2010) Performed for Routine general medical examination at a health care facility, Arthritis, Insomnia, Other testicular hypofunction, Gout, unspecified, Essential hypertension, benign * COMPREHENSIVE METABOLIC PANEL(Performed 12/10/2010) Performed for Routine general medical examination at a health care facility, Arthritis, Insomnia, Other testicular hypofunction, Gout, unspecified, Essential hypertension, benign * CBC W AUTO DIFFERENTIAL(Performed 12/10/2010) Performed for Routine general medical examination at a health care facility, Arthritis, Insomnia, Other testicular hypofunction, Gout, unspecified, Essential hypertension, benign * LIPID PROFILE(Performed 08/22/2008) Performed for Essential Hypertension, Benign * COMPREHENSIVE METABOLIC PANEL(Performed 08/22/2008) Performed for Essential Hypertension, Benign * AMB REFERRAL TO CARDIOLOGY(Performed 08/16/2008) Performed for Chest Pain * LA STRESS TTE W/ INTERP/REPORT(Performed 08/10/2008) Performed for Dyspnea * LA CARDIAC STRESS TST,COMPLETE(Performed 08/10/2008) Performed for Dyspnea * XR CHEST 2VW(Performed 08/09/2008) Performed for Dyspnea * TSH(Performed 08/08/2008) Performed for Dyspnea * COMPREHENSIVE METABOLIC PANEL(Performed 08/08/2008) Performed for Dyspnea * CBC W AUTO DIFFERENTIAL(Performed 08/08/2008) Performed for Dyspnea * ERYTHROCYTE SEDIMENTATION RATE(Performed 08/19/2007) * URIC ACID BLOOD(Performed 08/19/2007) * RHEUMATOID FACTOR BLOOD QUANTITATIVE(Performed 08/19/2007) * RAHEEM W REFLX (POSITIVE)(Performed 08/19/2007) * TSH(Performed 06/06/2007) * TESTOSTERONE FREE(Performed 06/06/2007) * LIPID PROFILE W TCHOL/HDL(Performed 06/06/2007) * COMPREHENSIVE METABOLIC PANEL(Performed 06/06/2007) * CBC W AUTO DIFFERENTIAL(Performed 06/06/2007) Results * CBC WITH DIFFERENTIAL (11/05/2024 6:59 AM BILINGUAL RECEPTIONIST) Only the most recent of22 resultswithin the time period is included. White Blood Cell Count 8.2 3.8 - [...] 0.5 % [facility] Comment: Test Performed at: [facility] [id number] [place] [address] BRIGIDO SHELTON MD 11/05/2024 6:59 AM BILINGUAL RECEPTIONIST 11/05/2024 7:01 AM BILINGUAL RECEPTIONIST Marcella Marquez [facility] ORDERABLES [facility] [id number] [place] [address] * COMPREHENSIVE METABOLIC PANEL (11/05/2024 6:59 AM BILINGUAL RECEPTIONIST) Only the most recent of18 resultswithin the time period is included. Glucose 95 65 - 99 mg/dL [facility] Comment: Fasting reference interval BUN 19 7 - 25 mg/dL [facility] Creatinine 0.84 0.70 - 1.35 mg/dL [facility] eGFR by Cystatin C 99 > OR = 60 mL/min/1. 73m2 [facility] BUN/Creatinine Ratio SEE NOTE: 6 (calc) [facility] Comment: Not Reported: BUN and [...] 46 U/L [facility] Comment: Test Performed at: [place] [address] BRIGIDO SHELTON MD 11/05/2024 6:59 AM BILINGUAL RECEPTIONIST 11/05/2024 7:01 AM BILINGUAL RECEPTIONIST Marcella Marquez APRN-[employer] NURSE LAB - CHEM ISTRY ORDERABLES Performing Organization Address [facility] de Phone Number [facility] [address] [place] [address] * PROSTATE SPECIFIC ANTIGEN SCREEN (11/05/2024 6:59 AM BILINGUAL RECEPTIONIST) Only the most recent of9 resultswithin the time period is included. PSA 0.75 < OR = 4.00 ng/mL [...] or absence of disease. Test Performed at: [facility] [address] [facility] [place] [address] BRIGIDO SHELTON MD 11/05/2024 6:59 AM BILINGUAL RECEPTIONIST 11/05/2024 7:01 AM BILINGUAL RECEPTIONIST Marcella Marquez [employer] N[facility]SE [facility] - CHEM ISTRY ORDERABLES Performing Organization Address [facility] de Phone Number [facility] [address] [place] [address] * LIPID PROFILE (11/05/2024 6:59 AM BILINGUAL RECEPTIONIST) Only the most recent of7 resultswithin the time period is included. Cholesterol 160 <200 mg/dL [facility] HDL Cholesterol [...] equation in the estimation of LDL-C. German SS et al. FAUZIA. 2013;310(19): 9932-0518 (http://education.Adreima/faq/WDJ512) CHOL/HDLC RATIO 3.0 <5.0 (calc) [facility] Non HDL Cholesterol 107 <130 mg/dL (calc) [facility] Comment: For patients with diabetes plus 1 major ASCVD risk factor, treating to a non-HDL-C goal of <100 mg/dL (LDL-C of <70 mg/dL) is considered a therapeutic option. Test Performed at: [facility] [address] [place] [address] BRIGIDO SHELTON MD 11/05/2024 6:59 AM BILINGUAL RECEPTIONIST 11/05/2024 7:01 AM BILINGUAL RECEPTIONIST Marcella Marquez [employer] N[facility]SE [facility] - CHEM ISTRY ORDERABLES [facility] [address] [place] [address] * ISTAT CREATININE (10/04/2024 1:59 PM BILINGUAL RECEPTIONIST) Sample iSTAT GRICELDA 10/04/2024 2:01 PM BILINGUAL RECEPTIONIST [facility] Creatinine POCT 0.8 0.5 - 1.3 mgdL 10/04/2024 2:01 PM BILINGUAL RECEPTIONIST [facility] Blood BLOOD SPECIMEN / Unknown 10/04/2024 1:59 PM BILINGUAL RECEPTIONIST 10/04/2024 2:01 PM BILINGUAL RECEPTIONIST Marcella Marquez [employer] N[facility]SE LAB - POIN T OF CARE ORDERABLES [facility] [address] [place] [address], [facility] * CT Abdomen Pelvis W Contrast (10/04/2024 1:45 PM BILINGUAL RECEPTIONIST) Only the most recent of7 resultswithin the time period is included. Anatomical Region Laterality Modality Abdomen, Pelvis Computed Tomogra phy 10/04/2024 2:24 PM BILINGUAL RECEPTIONIST Impressions 10/04/2024 2:29 PM BILINGUAL RECEPTIONIST IMPRESSION: 1. Inflammatory change adjacent to the [...] 10/04/2024 2:29 PM Narrative 10/04/2024 2:29 PM BILINGUAL RECEPTIONIST PROCEDURE: CT ABDOMEN PELVIS W CONTRAST DATE/TIME OF EXAM: 10/04/2024 2:18 PM INDICATION: R10.32: Left lower quadrant pain COMPARISON: 2019 ADDITIONAL CLINICAL INFORMATION (if provided): Ordering Provider [...] collection abscess or bowel obstruction. Procedure Note Root, Hilton D., MD - 10/04/2024 PROCEDURE: CT ABDOMEN PELVIS W CONTRAST DATE/TIME OF EXAM: 10/04/2024 2:18 PM INDICATION: R10.32: Left lower quadrant pain COMPARISON: 2019 ADDITIONAL CLINICAL INFORMATION (if provided): Ordering Provider [...] MD on 10/04/2024 2:29 PM Marcella Marquez [employer] N[employer]SE CT ORDERAB LES * TOXASSURE SELECT URINE (08/23/2024 3:56 PM BILINGUAL RECEPTIONIST) Summary FINAL [facility] INSURANCE BILL Comment: TOXASSURE SELECT 13 (MW) Test Result Flag Units NO DRUGS DETECTED. Test Result Flag Units Ref Range Creatinine 29 mg/dL >=20 Declared Medications: Medication list was not provided. For clinical consultation, please call . URINE SPECIMEN OBTAINED BY CLEAN CATCH PROCEDURE / Unknown 08/23/2024 3:56 PM BILINGUAL RECEPTIONIST 08/23/2024 Narrative [facility] INSURANCE BILL - 08/29/2024 3:07 PM BILINGUAL RECEPTIONIST Performed at: 01 - [employer] [address] [id number] [employer]ane Worker: Mayelin Moe, Phone: [phone] Specimen Comment: [employer], [employer] FLEX or MAT drug testing: Specimen Comment: -Technical component - Data analysis performed at Specimen Comment: [address], [place] [address]. Verenice Dickens APRN-[employer] NURSE LAB - URINE CHEMISTRY ORDERABLES [facility] INSURANCE BILL [address] [place] [address] * CARDIAC STRESS TEST ORDER (02/26/2024 7:09 PM CDT) Narrative 02/26/2024 7:09 PM CDT Ordered by an unspecified provider. Scanned Document CARDIAC SERVICES ORD ERABLES * ECHO COMPLETE (02/18/2024 1:37 PM CDT) BSA [id number] m2 [facility] CV FUJI PACS LV biplane EF 71 52 - 72 % [facility] PACS LV A2C EF 72 48 - 76 % [facility] CV FUJ I PACS LV A4C EF 66 46 - 74 % [facility] CV FUJ I PACS LV stroke vol BP 60.9 mL SSM CV FUJI PACS LV stroke vol BP index 29.4 mL/m2 [facility]SM CV F[facility]I PACS LVOT stroke vol 103.46 mL SSM CV FUJI PACS LVOT stroke vol index 49.92 mL/m2 [facility]SM CV FUJI PACS LV stroke vol 2D teich 65.867 ml SSM CV FUJI PACS LV Stroke Index 2D Teich 31.78 mL/m2 [facility] CV [facility]I PACS LV stroke vol index A4C MOD 47.75 ml/m2 [facility] PACS AV envelope time 323 ms SSM CV [facility]I PACS LVOT envelope time 314 ms SSM CV FUJI PACS LVIDd 4.95 4.2 - 5.8 cm SSM CV F[facility]I PACS IVSd MM 1.354 0.6 - 1 cm [facility]SM CV [facility]I PACS LVIDs 3.47 2.5 - 4.0 cm SSM CV FUJI PACS IVSd 2D 1.276 0.6 - 1 cm SSM CV [facility]I PACS LVPWd 1.17 0.6 - 1 cm SSM CV F[facility]I PACS LVPWs M-Mode 1.215 cm SSM CV FUJI PACS Fractional Shortening 2D 30 28 - 44 % SSM CV FUJI PACS LV ESV BP 24.437 21 - 61 mL SSM CV FUJI PACS LV ESV index BP 11.8 11 - 31 mL/m2 [facility]SM CV FUJI PACS LV ESV A2C 24.756 15 - 75 mL SSM CV FUJI PACS LV ESV index A2C 11.95 9 - 37 mL/m2 SSM CV FUJI PACS LV EDV BP 85.323 62 - 150 mL SSM CV FUJI PACS LV ESV A4C 23.261 22 - 78 mL SSM CV FUJI PACS LV ESV index A4C 11.22 12 - 40 mL/m2 SSM CV FUJI PACS LV EDV index BP 41.2 34 - 74 mL/m2 SSM CV FUJI PACS LV EDV A2C 83.387 59 - 175 mL SSM CV FUJI PACS LV EDV index A2C 40.24 31 - 87 mL/m2 SSM CV FUJI PACS LV EDV A4C 72.507 mL SSM CV FU JI PACS LV ESV 2D 49.863 21 - 61 mL SSM CV FUJI PACS LV EDV index A4C 34.99 37 - 93 mL/m2 SSM CV FUJI PACS LV ESV index 2D 24.06 11 - 31 mL/m2 SSM CV FUJI PACS LV EDV 2D 115.73 62 - 150 mL SSM CV FUJI PACS LV EDV index 2D 55.84 34 - 74 mL/m2 SSM CV FUJI PACS LVOT diam 2.6 cm SSM CV FUJ I PACS LVOT area 5.12 cm2 SSM CV FUJ I PACS LV RWT 0.473 SSM CV FUJ I PACS LV John A2C 8.827 cm SSM CV F UJI PACS LV John A4C 7.26 cm SSM CV F UJI PACS IVS/LVPW 1.089 SSM CV FUJ I PACS Fractional Shortening M-Mode 37 28 - 44 % SSM CV FUJ I PACS LV mass m-mode 229.124 88 - 224 g SSM CV FUJI PACS LV mass index m-mode 110.56 49 - 115 g/m2 SSM CV FUJI PACS LV mass 2D 236.849 96 - 200 g SSM CV FUJI PACS LV mass index 2D 114.28 50 - 102 g/m2 SSM CV FUJI PACS MV E pk mario 75.962 cm/s SSM CV F UJI PACS MV avg E/e' ratio 8.99 SS M CV FUJI PACS MV A pk mario 69.43 cm/s SSM CV F UJI PACS MV E A ratio 1.09 SSM CV FUJI PACS MV E' lateral mario 10.805 cm/s SS M CV FUJI PACS MV DT 223 ms SSM CV FUJ I PACS MV E' septal mario 6.933 cm/s SSM CV FUJI PACS MV E/e' septal 10.957 SSM C V FUJI PACS MV E/e' lateral 7.03 SSM CV FUJI PACS TR pk mario 294.2 cm/s SSM CV FUJ I PACS LVOT pk mario 0.96 m/s SSM CV F UJI PACS LVOT mn mario 0.64 m/s SSM CV F UJI PACS LVOT mn grad 1.9 mmHg SSM CV FUJI PACS GPLS AVG -19.0 % SSM CV FUJ I PACS GPLS A2C -17.9 % SSM CV FUJ I PACS GPLS A4C -19.0 % SSM CV FUJ I PACS GPLS APLAX -20.2 % SSM CV FU JI PACS AA pk sys strain -19.0 % SSM CV FUJI PACS AAS pk sys strain -30.0 % SS M CV FUJI PACS AI pk sys strain -16.8 % SSM CV FUJI PACS AL pk sys strain -24.5 % SSM CV FUJI PACS AP pk sys strain -27.3 % SSM CV FUJI PACS pk sys strain -23.3 % SSM CV FUJI PACS BA pk sys strain -20.8 % SSM CV FUJI PACS BAS pk sys strain -13.4 % SS M CV FUJI PACS BI pk sys strain -15.7 % SSM CV FUJI PACS BL pk sys strain -18.4 % SSM CV FUJI PACS BS pk sys strain -11.2 % SSM CV FUJI PACS MA pk sys strain -20.4 % SSM CV FUJI PACS MAS pk sys strain -20.4 % SS M CV FUJI PACS VA pk sys strain -15.2 % SSM CV FUJI PACS ML pk sys strain -20.4 % SSM CV FUJI PACS MP pk sys strain -16.8 % SSM CV FUJI PACS MS pk sys strain -15.3 % SSM CV FUJI PACS LA area A4C 13.224 20 cm2 SSM CV F UJI PACS LA size 4.2 3.0 - 4.0 cm SSM CV FUJI PACS LA vol BP A-L 45.363 mL SSM CV FUJI PACS RV-john basal diam 3.4 2.5 - 4.1 cm SSM CV FUJI PACS RV-john longitudinal diam 6.3 5.9 - 8.3 cm SSM CV FUJI PACS RVIDd 4.6 cm SSM CV FUJ I PACS TAPSE 2.249 1.7 cm SSM CV FUJ I PACS RA area 11.306 cm2 SSM CV FUJ I PACS AV mn grad 4 mmHg SSM CV FU JI PACS AV pk grad 8 mmHg SSM CV FU JI PACS AV mn mario 0.84 m/s SSM CV FUJ I PACS AV pk mario 1.45 m/s SSM CV FUJ I PACS AV VTI 27.257 cm SSM CV FUJ I PACS LVOT pk grad 3.684 mmHg SSM CV FUJI PACS LVOT VTI 20.219 cm SSM CV FUJ I PACS AV area cont VTI 3.8 cm2 SSM CV FUJI PACS AV area pk mario 3.4 cm2 SSM C V FUJI PACS AV Doppler mario index pk mario 0.661 SSM CV FUJI PACS AV closure time 0.3 s SSM CV FUJI PACS Dimensionless Index 0.742 SSM CV FUJI PACS MV pk mario regurg 456.943 cm/s SSM CV FUJI PACS MV mn grad 1 mmHg SSM CV FU JI PACS MV pk grad 2 mmHg SSM CV FU JI PACS MV mn mario 0.31 m/s SSM CV FUJ I PACS MV pk mario 75.962 cm/s SSM CV FUJ I PACS MV PHT 64 ms SSM CV FUJ I PACS MV area PHT 3.44 cm2 SSM CV F UJI PACS MV area cont eq 4.46 cm2 SSM CV FUJI PACS MV VTI 23.22 cm SSM CV FUJ I PACS MV decel slope 328.883 cm/s2 SSM C V FUJI PACS sPAP 37.6 mmHg SSM CV FUJ I PACS RVSP 37.6 mmHg SSM CV FUJ I PACS RAP 3.0 mmHg SSM CV FUJ I PACS TR pk grad 35 mmHg SSM CV FU JI PACS dPAP 12.1 mmHg SSM CV FUJ I PACS LA pk mario 150.955 cm/s SSM CV FUJ I PACS LA pk grad 9 mmHg SSM CV FU JI PACS PV pk mario 76.259 cm/s SSM CV FUJ I PACS PV pk grad 2 mmHg SSM CV FU JI PACS Aortic arch 3.254 cm SSM CV F UJI PACS Sinus of Valsalva 4.01 cm SS M CV FUJI PACS Sinus of valsalva index 1.93 cm/m2 SSM CV FUJI PACS IVC size 1.3 cm SSM CV FUJ I PACS LA ESV A4C MOD Index 14 ml/m2 SSM CV FUJI PACS LA ESV A2C MOD Index 26 ml/m2 SSM CV FUJI PACS [id number] 6.724 cm SSM CV FUJ I PACS TAMDE0VA 6.421 cm SSM CV FUJ I PACS Ao Root Diam Index (2D) 1.936 cm SSM CV FUJI PACS LA AREA (2C) 18.67 SSM CV FUJI PACS EF M-Mode 67 % SSM CV FUJ I PACS LA Size 4.2 cm SSM CV FUJ I PACS LVIDs index 1.68 1.3 - 2.1 cm/m2 SSM CV FUJI PACS LV LVIDd index 2.39 2.2 - 3.0 cm/m2 SSM CV FUJI PACS Systolic Blood Pressure 98 SSM CV FUJI PACS Anatomical Region Laterality Modality Ultrasound Narrative 02/18/2024 1:49 PM CDT Left Ventricle: Left ventricle size is normal. Normal wall thickness. Normal systolic function with a visually estimated EF of 55 - 60%. Normal wall motion. Normal diastolic function. Pericardium: Evidence of prominent fat pad. Tricuspid Valve: Trace regurgitation. Left Ventricle Left ventricle size is normal. Normal wall thickness. Normal systolic function with a visually estimated EF of 55 - 60%. Normal wall motion. Normal diastolic function. Right Ventricle Right ventricle size is normal. Normal systolic function. Left Atrium Left atrium size is normal. Right Atrium Right atrium size is normal. IVC/SVC IVC diameter is less than or equal to 21 mm and decreases greater than 50% during inspiration; therefore the estimated right atrial pressure is normal (~3 mmHg). Mitral Valve Valve structure is normal. No restricted motion. Trace regurgitation. No stenosis. Tricuspid Valve Valve structure is normal. No restricted motion. Trace regurgitation. No stenosis. Aortic Valve Valve structure is trileaflet. No restricted motion. No regurgitation. No stenosis. Pulmonic Valve Valve structure is normal. No restricted motion. No regurgitation. No stenosis. Ascending Aorta Normal sized sinus of Valsalva (aortic root) and ascending aorta. Pericardium Evidence of prominent fat pad. No pericardial effusion. Study Details Study quality was adequate. A complete 2D, color Doppler, spectral Doppler and M-mode echocardiogram was performed. The apical, parasternal, subcostal and suprasternal views were obtained. Patient exhibited sinus rhythm. Procedure Note Lalit Delacruz MD - 02/18/2024 Left Ventricle: Left ventricle size is normal. Normal wall thickness.Normal systolic function with a visually estimated EF of 55 - 60%. Normalwall motion. Normal diastolic function. Pericardium: Evidence of prominent fat pad. Tricuspid Valve: Trace regurgitation. Ej Watters MD ECHO CUPID * STRESS TEST Treadmill (02/18/2024 1:35 PM CDT) Predicted METS 8.0 METS [facility] CARDIAC SERVICES Target HR 135 bpm [facility] CARDI AC SERVICES Max Age Predicted HR 159 bpm [facility] CARDIAC [facility] Angina Index 0 [facility] CA RDIAC SERVICES Exercise duration (min) 10 min [facility] CARD[facility] Exercise duration (sec) 2 sec [facility] Peak METS Achieved 11.7 METS [facility] CARD[facility] Actual / Predicted METS 146.4 % [facility] CARDIAC [facility] Baseline HR 55 bpm [facility] CAR DIAC SERVICES Stress peak HR 153 bpm [facility] CARDIAC SERVICES Max HR Percent 96 % [facility] C[facility] Rate Pressure Product 27,693 [facility] CARDIAC SERVICES Baseline BP 98/54 mmHg [facility] CAR DIAC SERVICES Post peak BP 181/101 mmHg [facility] CA RDIAC [facility] Target HR Percent 113 % [facility] CARDI[facility] ST Depression (mm) 0 mm [facility] Recovery ST Depression (mm) 0 mm [facility] CARDIAC SERVICES [place] Treadmill Score 10 [facility] CARDI[facility] SERVICES Anatomical Region Laterality Modality Cardiac Electrop hysiology Narrative 02/18/2024 3:52 PM CDT ECG: The ECG was negative for ischemia. Stress Findings A Gunner protocol stress test was performed with the patient exercising for 10 min and 2 sec. The patient's exercise capacity was average for their age and sex. The patient experienced no angina during the test. Peak METs was 11.7. The patient reported no symptoms during the stress test. The patient reached the end of the protocol. The patient achieved the target heart rate. The target heart rate was 135 bpm. A peak heart rate of 153 bpm (96% of max predicted heart rate) was achieved. Blood pressure demonstrated a hypertensive response and heart rate demonstrated a normal response to stress. The patient's heart rate recovery was normal. The patient's resting blood pressure was 98/54 mmHg. The patient's peak stress blood pressure was 181/101 mmHg. ECG Resting ECG: Normal. Exhibits sinus bradycardia. Stress ECG: No clinically relevant ST-segment deviation. Exhibits no arrhythmias. Recovery ECG: No clinically relevant ST-segment deviation. Exhibits no arrhythmias. The ECG was negative for ischemia. Ej Watters MD CARDIAC SERVICES CUP ID * EKG 12-LEAD (02/04/2024 2:45 PM CDT) Only the most recent of2 resultswithin the time period is included. Ventricular Rate 53 BPM [facility] MUSE Atrial Rate 53 BPM [facility] ME D GRP MUSE P-R Interval 152 ms [facility] M ED GRP MUSE QRS Duration ms 100 ms [facility] S L MED GRP MUSE Q-T Interval ms 418 ms [facility] L MED GRP MUSE QTC Calculation (Bezet) 392 ms [facility] SL MED GRP MUSE Calculated P [place] 71 degrees [facility] SL MED GRP MUSE Calculated R [place] 59 degrees [facility] MED GRP MUSE Calculated T [place] 57 degrees SL MED GRP MUSE Interpretation EKG Sinus bradycardia Incomplete right bundle branch block Borderline ECG Confirmed by EJ WATTERS MD ([id number]) on 02/13/2024 5:44:26 PM [facility] MED GRP MUSE 02/04/2024 2:45 PM CDT 02/13/2024 5:44 PM CDT Ej Watters MD ECG ORDERABLES Performing Organization Address [facility] Co de Phone Number [facility] GRP MUSE * LAB RESULTS ORDER (01/18/2024) Only the most recent of3 resultswithin the time period is included. 01/18/2024 Narrative 01/18/2024 Ordered by an unspecified provider. Scanned Document LAB - THERAPEUTIC DR UG MONITORING ORDERABLES * IMAGING RADIOLOGY XRAY RESULTS ORDER (01/18/2024) Only the most recent of6 resultswithin the time period is included. Anatomical Region Laterality Modality Other 01/18/2024 Narrative 01/18/2024 Ordered by an unspecified provider. Scanned Document IMAGING * INFLUENZA A+B - POINT OF CARE (AMB) (12/29/2023 9:56 AM CDT) Influenza A Antigen Rapid Negative Negative [facility] Influenza B Antigen Rapid Negative Negative [facility] Influenza Internal Control present NEGATIVE - POSITIVE [facility] Influenza Lot Number [id number] [facility] Influenza Expiration Date 03-18-25 [facility] Other NASOPHARYNGEAL SWAB / Unknown 12/29/2023 9:56 AM CDT Verenice Dickens [employer] [facility]SE [facility] - POINT OF CARE ORDERABLES [facility] [address] [place] [address], [facility] [phone] * XR SHOULDER LEFT 2VW OR MORE (07/09/2023 9:22 AM CDT) Anatomical Region Laterality Modality Upper Extremity Radiographic Mckenna ging Narrative 07/09/2023 9:25 AM CDT Carmen Christie, RT(R) 07/09/2023 9:54 AM Please see chart for x ray report. Jayjay Prieto MD DIAGNOSTIC IMAGING O RDERABLES * XR CHEST 2VW (06/20/2023 9:55 AM CDT) Only the most recent of5 resultswithin the time period is included. Anatomical Region Laterality Modality Chest Radiographic Mckenna ging 06/20/2023 10:0 6 AM CDT Impressions 06/20/2023 10:07 AM CDT IMPRESSION: No change No active disease. > Interpreting Provider: Hilton Ramos MD on 06/20/2023 10:07 AM Narrative 06/20/2023 10:07 AM CDT PROCEDURE: XR CHEST 2VW DATE/TIME OF EXAM: 06/20/2023 9:55 AM INDICATION: R07.89: Other chest pain COMPARISON: 2014 ADDITIONAL CLINICAL INFORMATION (if provided): Ordering Provider Reason For Exam: Findings: The heart is not enlarged. The aorta is normal in caliber. The lungs are clear. There is no confluent infiltrate or effusion. There is no pneumothorax. There is no mass or adenopathy.. Procedure Note Hilton Ramos MD - 06/20/2023 PROCEDURE: XR CHEST 2VW DATE/TIME OF EXAM: 06/20/2023 9:55 AM INDICATION: R07.89: Other chest pain COMPARISON: 2014 ADDITIONAL CLINICAL INFORMATION (if provided): Ordering Provider Reason For Exam: Findings: The heart is not enlarged. The aorta is normal in caliber. The lungs are clear. There is no confluent infiltrate or effusion. There is no pneumothorax. There is no mass or adenopathy.. IMPRESSION: No change No active disease. > Interpreting Provider: Hilton Ramos MD on 06/20/2023 10:07 AM Pamela Somers APRN-[facility] DIAGNOSTIC IMAGING ORDERABLES * (ABNORMAL) STREP A SCREEN - POINT OF CARE (AMB) (06/20/2023 9:19 AM CDT) Only the most recent of3 resultswithin the time period is included. Strep A Rapid POCT Positive(A) Negative [facility] Strep A Internal Control Present [facility] Other ENTIRE THROAT (SURFACE REGION OF NECK) / Unknown 06/20/2023 9:19 AM CDT Pamela Somers APRN-[facility] LAB - POINT OF CARE ORDERABLES [facility] [address] [phone] * SARS-COV-2 (COVID-19) AG (AMB) POCT (06/20/2023 9:17 AM CDT) SARS-CoV-2 Ag Negative Negative [facility] Lot # [id number] [facility] Expiration Date [id number] [facility] Instrument Serial Number [id number] [facility] COVID Internal Control Acceptable Acceptable [facility] Microbiology SPECIMEN FROM NASAL FOSSAE / Unknown 06/20/2023 9:17 AM CDT Narrative [facility] - 06/20/2023 9:18 AM CDT SARS-CoV-2 antigen testing is authorized for use with nasal (Quidel, Veritor, BinaxNOW, or Alba) or nasopharyngeal (Alba) swabs collected from individuals who are suspected of COVID-19 infection by their healthcare provider within the first five days of onset of symptoms. False-positive SARS-CoV-2 test results are more likely to occur when disease prevalence is low (less than 1%). False-negative SARS-CoV-2 test results are more likely to occur when disease prevalence is high (greater than 10%). This test has been authorized by the Food and Drug administration (FDA)under an Emergency Use Authorization (EUA). This test is only authorized for the duration of time the declaration that circumstances exist justifying the authorization of emergency use of in vitro diagnostic tests for detection of SARS-CoV-2 virus and/or diagnosis of COVID-19 infection under section 564(b)(1) of the Act, 21 U.S.C 360bbb-3 (b)(1), unless the authorization is terminated or revoked sooner. Fact Sheets for this EUA assay are available upon request. Negative results should be treated as presumptive and confirmation with a molecular assay, if necessary, for patient management, may be performed. Negative results do not rule out COVID-19 and should not be used as the sole basis for treatment or patient management decisions, including infection control decisions. Negative results should be considered in the context of a patient's recent exposures, history and the presence of clinical signs and symptoms consistent with COVID-19. Pamela Somers APRN-[employer] N[facility] LAB - POINT OF CARE ORDERABLES [facility] [address] [place] [address], [facility] [phone] * MRI SHOULDER LEFT WO CONTRAST (05/08/2023 6:50 AM CDT) Anatomical Region Laterality Modality Upper Extremity Magnetic Resonan ce 05/08/2023 8:38 AM CDT Impressions 05/08/2023 8:46 AM CDT IMPRESSION: 1. Advanced osteoarthritic changes of the glenohumeral joint. 2. Mild-moderate osteophytosis of the acromioclavicular joint. 3. Tendinosis of the rotator cuff, without a discrete tear. 4. Moderate shoulder joint effusion with several loose bodies. > Interpreting Provider: Aidan Johnson MD on 05/08/2023 8:46 AM Narrative 05/08/2023 8:46 AM CDT PROCEDURE: MRI SHOULDER LEFT WO CONTRAST, DATE/TIME OF EXAM: 05/08/2023 6:50 AM, LOCATION [facility] INDICATION: M25.512: Pain in left shoulder G89.29: Other chronic pain ADDITIONAL CLINICAL INFORMATION: Ordering Provider Reason For Exam: Technologist Note: Additional: COMPARISON: 12/31/2017; TECHNIQUE: MRI of the shoulder was performed without contrast. FINDINGS: Rotator Cuff: Mild left and moderate tendinosis of the supraspinatus tendon is present. There is mild tendinosis of the infraspinatus tendon. The teres minor tendon appears intact area subscapularis tendon demonstrates mild tendinosis, but appears intact. Biceps Tendon: The long head of the biceps tendon is located within the bicipital groove, without tear. Labrum: No discrete superior labral tear is seen. Margins of the labrum appears somewhat diminutive, suggesting prior debridement. Labral anchor is in the anteroinferior quadrant are noted on the sagittal T1-weighted series. The labrum in that region is diminutive. Acromion and AC Joint: Mild left and moderate osteoarthritic changes of the acromioclavicular joint are noted. The coracoclavicular ligament is intact. Type 2 Acromion. Glenohumeral Articulation: Grade 3 chondral thinning is noted at the glenohumeral articulation. There is remodeling of the articular surface of the glenoid, with spurring inferiorly. Mild left and moderate marginal osteophyte formation of the humerus and inferior glenoid is noted. No subluxation, or dislocation. Bones: No fracture. Joint and bursae: There is a moderate shoulder joint effusion. Several loose bodies are present, the largest within the axillary pouch measuring 0.8 cm in size. Loose bodies within the long head biceps tendon sheath are noted. Soft Tissues: The scapular notch, quadrilateral space are unremarkable. There is no axillary lymphadenopathy. Procedure Note Aidan Johnson MD - 05/08/2023 PROCEDURE: MRI SHOULDER LEFT WO CONTRAST, DATE/TIME OF EXAM: 05/08/2023 6:50 AM, LOCATION [facility] INDICATION: M25.512: Pain in left shoulder G89.29: Other chronic pain ADDITIONAL CLINICAL INFORMATION: Ordering Provider Reason For Exam: Technologist Note: Additional: COMPARISON: 12/31/2017; TECHNIQUE: MRI of the shoulder was performed without contrast. FINDINGS: Rotator Cuff: Mild left and moderate tendinosis of the supraspinatustendon is present. There is mild tendinosis of the infraspinatus tendon. Theteres minor tendon appears intact area subscapularis tendon demonstrates mild tendinosis, but appears intact. Biceps Tendon: The long head of the biceps tendon is located within the bicipital groove, without tear. Labrum: No discrete superior labral tear is seen. Margins of the labrum appears somewhat diminutive, suggesting prior debridement. Labral anchoris in the anteroinferior quadrant are noted on the sagittal T1-weighted series. The labrum in that region is diminutive. Acromion and AC Joint: Mild left and moderate osteoarthritic changes ofthe acromioclavicular joint are noted. The coracoclavicular ligament isintact. Type 2 Acromion. Glenohumeral Articulation: Grade 3 chondral thinning is noted at the glenohumeral articulation. There is remodeling of the articular surfaceof the glenoid, with spurring inferiorly. Mild left and moderate marginal osteophyte formation of the humerus and inferior glenoid is noted. No subluxation, or dislocation. Bones: No fracture. Joint and bursae: There is a moderate shoulder joint effusion. Several loose bodies are present, the largest within the axillary pouchmeasuring 0.8 cm in size. Loose bodies within the long head biceps tendon sheathare noted. Soft Tissues: The scapular notch, quadrilateral space are unremarkable. There is no axillary lymphadenopathy. IMPRESSION: 1. Advanced osteoarthritic changes of the glenohumeral joint. 2. Mild-moderate osteophytosis of the acromioclavicular joint. 3. Tendinosis of the rotator cuff, without a discrete tear. 4. Moderate shoulder joint effusion with several loose bodies. > Interpreting Provider: Aidan Johnson MD on 05/08/2023 8:46 AM Jayjay Prieto MD MR ORDERABLES * BASIC METABOLIC PANEL (BMP) (11/08/2022 8:44 AM BILINGUAL RECEPTIONIST) Only the most recent of7 resultswithin the time period is included. Glucose 77 70 - 105 mg/dL [facility] ACCOUNT BILL BUN 22 8.4 - 25.7 mg/dL [facility] ACCOUNT BILL Creatinine 0.86 0.72 - 1.25 mg/dL [facility] ACCOUNT BILL eGFR by CKD-EPI >90 >=90 mL/min/1.7 3 m2 [facility] ACCOUNT BILL Sodium 137 136 - 145 mmol/L [facility] ACCOUNT BILL Potassium 4.6 3.5 - 5.1 mmol/L [facility] ACCOUNT BILL Chloride 101 98 - 107 mmol/L [facility] ACCOUNT BILL CO2 27 23 - 31 mmol/L [facility] ACCOUNT BILL Calcium 9.8 8.4 - 10.4 mg/dL [facility] ACCOUNT BILL Blood BLOOD SPECIMEN / Unknown 11/08/2022 8:44 AM BILINGUAL RECEPTIONIST 11/08/2022 Narrative Resulting Agency Comment Lab Testing performed at: [facility] [address] Darshan AYERS [phone] Pamela Somers [employer] [facility] - CHEMISTRY ORD ERABLES [facility] ACCOUNT BILL [address] [place] [address] * PATHOLOGY TISSUE EXAM (STL) (12/17/2021 7:39 AM CDT) Only the most recent of5 resultswithin the time period is included. Case Report Surgical Pathology Report Case: [id number] Authorizing Provider: Angel Coyle MD Collected: 12/17/2021 07:39 AM Ordering Location: [facility] Received: 12/18/2021 11:30 AM Pathologist: Kalani Galvin MD Specimen: Polyp Ascending, x1 Mid Transverse polyp x1 12/19/2021 1:41 PM CDT [facility] Final Diagnosis Colon, ascending/mid transverse; polypectomy x2: Tubular adenoma(s) x1 - Negative for high-grade dysplasia Benign non-neoplastic polypoid mucosa, no epithelial lesion x1 12/19/2021 1:41 PM CDT [facility] Clinical History Two polyps up to 3 mm and diverticulosis, healthy-appearing anastomosis 12/19/2021 1:41 PM CDT [facility] Gross Description One specimen received in a formalin filled container labeled ascending polyp x1 and mid transverse polyp x1 consists of 2 burks mucosal fragments 3 and 6 mm greatest dimension, submitted in toto in A1. 12/19/2021 1:41 PM CDT [facility] Disclaimer All histochemical and/or immunohistochemical results are interpreted with controls that demonstrate appropriate staining reactions before reporting results. Note on use of immunocytochemistry reagents: This test was developed and its performance characteristic determined by [facility], Department of Laboratory Medicine. It has not been cleared or approved by the U.S. Food and Drug Administration (FDA). The FDA has determined that such clearance or approval is not necessary. The test is used for clinical purpose. It should not be regarded as investigational or for research. This laboratory is certified to perform high complexity testing. The performance characteristics of the IHC/ALICIA assays have been validated on formalin-fixed paraffin embedded tissues only. The assays have not been validated on decalcified tissues. Results should be interpreted with caution. 12/19/2021 1:41 PM CDT [facility] Embedded Images 12/19/2021 1:41 PM CDT [facility] Pathology/Cytolo gy POLYP / Unknown 12/17/2021 7:39 AM CDT 12/18/2021 11:30 AM CDT Angel Coyle MD LAB - PATHOLOGY/CYTO LOGY ORDERABLES Performing Organization Address [facility]/ZIP Co de Phone Number [facility] [address] [phone] * ENDOSCOPY, COLON, SCREENING (12/17/2021) Angel Coyle MD GI PROCEDURE ORDERAB LES Performing Organization Address City/[facility]/ZIP Co de Phone Number [facility] RESULT SCAN * URINALYSIS NO MICROSCOPIC NO CULTURE (08/15/2021 3:42 PM BILINGUAL RECEPTIONIST) Specific [place]om UA 1.009 1.005 - 1.030 [facility] ACCOUNT BILL pH UA 6.0 5.0 - 8.0 pH [facility] ACCOUNT BILL Color UA Yellow [facility] ACCOUNT BILL Comment:REFERENCE RANGE: Str aw, Yellow Appearance Clear Clear [facility] ACCOUNT BILL Leukocyte UA Negative Negative [facility] ACCOUNT BILL Protein UA Negative Negative [facility] ACCOUNT BILL Glucose UA Negative Negative [facility] ACCOUNT BILL Ketone UA Negative Negative [facility] ACCOUNT BILL Occult Blood Urine Negative Negative [facility] ACCOUNT BILL Bilirubin UA Negative Negative [facility] ACCOUNT BILL Urobilinogen Negative Negative mg/dL [facility] ACCOUNT BILL Nitrite UA Negative Negative [facility] ACCOUNT BILL Urine MID-STREAM URINE SPECIMEN / Unknown 08/15/2021 3:42 PM BILINGUAL RECEPTIONIST 08/15/2021 Narrative Resulting Agency Comment Lab Testing performed at: [facility] [address] [facility] [phone] Glendy Bruner [employer] [facility] - URIN ALYSIS ORDERABLES Performing Organization Address City/[facility]/ZIP Co de Phone Number [facility] ACCOUNT BILL [address] [place] [address] * TESTOSTERONE TOTAL (08/15/2020 8:11 AM BILINGUAL RECEPTIONIST) Testosterone 449 221 - 716 ng/dL [facility] ACCOUNT BILL Comment:FASTING Blood BLOOD SPECIMEN / Unknown 08/15/2020 8:11 AM BILINGUAL RECEPTIONIST 08/15/2020 Narrative Resulting Agency Comment Lab Testing performed at: [facility] [address] [facility] [phone] Glendy Bruner [employer] [facility] - CHEM ISTRY ORDERABLES Performing Organization Address City/[facility] Co de Phone Number [facility] ACCOUNT BILL [address] [place] [address] * FL GUIDED NEEDLE PLACEMENT (07/04/2020 8:42 AM CDT) Anatomical Region Laterality Modality Abdomen, Lung, Spine, Breast Rad io Fluoroscopy 07/04/2020 8:54 AM CDT Impressions 07/04/2020 9:12 AM CDT Technically successful injection of clinician prescribed medication into the requested joint space, see Header. *Reading Radiologist: Tim Griffith on 07/04/2020 at 9:12 AM Narrative 07/04/2020 9:12 AM CDT Fluoroscopic medication injection of the right hip Procedure Title from [facility]: FL GUIDED NEEDLE PLACEMENT*[id number] COMPARISON: 06/26/2020 right hip x-ray PHYSICIAN PERFORMING PROCEDURE: Dr. Redd Griffith. ESTIMATED BLOOD LOSS: Negligible. COMPLICATIONS: No immediate complications. HISTORY / INDICATION: Pain, suspected arthritis HISTORY: Pain in right hip ANESTHESIA: See Below TECHNIQUE AND FINDINGS: Hospital time out procedure was performed. Informed consent was obtained and documented: the risks included but not limited to pain, bleeding, infection, reaction to medication, and damage to structures. Patient was placed supine on the fluoroscopy table. Suitable skin entry site was localized with fluoroscopy. Patient's skin was prepped and draped in the usual sterile fashion. Subcutaneous 1% lidocaine anesthesia was provided. Under direct fluoroscopic guidance a 22 -gauge spinal needle was inserted into the Requested joint space, see header / procedure title for specific location. Intra-articular location was confirmed with injection of a small amount of iodinated contrast, amount documented per protocol in EPIC. Subsequently, 80 mg of Depo-Medrol with Marcaine was instilled into the joint space and subsequently flushed through the needle. Needle was withdrawn. Patient tolerated the procedure without complication. Patient was discharged in good stable condition. Fluoroscopy time: Approximately one minute Procedure Note Kyler Griffith MD - 07/04/2020 Fluoroscopic medication injection of the right hip Procedure Title from [facility]: FL GUIDED NEEDLE PLACEMENT*[id number] COMPARISON: 06/26/2020 right hip x-ray PHYSICIAN PERFORMING PROCEDURE: Dr. Redd Griffith. ESTIMATED BLOOD LOSS: Negligible. COMPLICATIONS: No immediate complications. HISTORY / INDICATION: Pain, suspected arthritis HISTORY: Pain in right hip ANESTHESIA: See Below TECHNIQUE AND FINDINGS: Hospital time out procedure was performed. Informed consent was obtained and documented: the risks included but not limited to pain, bleeding, infection, reaction to medication, and damage to structures. Patient was placed supine on the fluoroscopy table. Suitable skin entry site was localized with fluoroscopy. Patient's skin was prepped and draped in the usual sterile fashion. Subcutaneous 1% lidocaine anesthesia was provided. Under direct fluoroscopic guidance a 22 -gauge spinal needle was inserted into the Requested joint space, see header / procedure title for specific location. Intra-articular location was confirmed with injection of a small amount of iodinated contrast, amount documented per protocol in EPIC. Subsequently, 80 mg of Depo-Medrol with Marcaine was instilled into the joint space and subsequently flushed through the needle. Needle was withdrawn. Patient tolerated the procedure without complication. Patient was discharged in good stable condition. Fluoroscopy time: Approximately one minute IMPRESSION Technically successful injection of clinician prescribed medication into the requested joint space, see Header. *Reading Radiologist: Tim Griffith on 07/04/2020 at 9:12 AM Woody Galvan Satterly DO FLUOROSCOPY ORDERAB LES * XR HIP RIGHT 2VW OR MORE (06/26/2020 12:06 PM CDT) Anatomical Region Laterality Modality Pelvis, Lower Extremity Radiogra phic Imaging 06/26/2020 12:2 0 PM CDT Impressions 06/26/2020 12:21 PM CDT Mild degenerative change in right hip. *Reading Radiologist: Francis Kennedy on 06/26/2020 at 12:21 PM Narrative 06/26/2020 12:21 PM CDT Right hip 2 views HISTORY: Right hip pain FINDINGS: There is mild degenerative change in the right femoral acetabular joint. No fracture or AVN is seen. Procedure Note Francis Kennedy MD - 06/26/2020 Right hip 2 views HISTORY: Right hip pain FINDINGS: There is mild degenerative change in the right femoral acetabular joint. No fracture or AVN is seen. IMPRESSION Mild degenerative change in right hip. *Reading Radiologist: Francis Kennedy on 06/26/2020 at 12:21 PM Glendy Bruner [employer] NURSE DIAGNOSTIC IMAGING ORDERABLES * XR LUMBAR SPINE 2 OR 3VW (06/26/2020 12:06 PM CDT) Anatomical Region Laterality Modality Spine Radiographic Mckenna ging 06/26/2020 12:2 0 PM CDT Impressions 06/26/2020 12:26 PM CDT Mild degenerative change in the lumbar spine. No fracture or spondylolysis is seen. *Reading Radiologist: Francis Kennedy on 06/26/2020 at 12:26 PM Narrative 06/26/2020 12:26 PM CDT Lumbar spine 3 views history: Back pain FINDINGS: Mild levoscoliosis is seen in the lumbar spine. No fracture or spondylolysis is seen. Mild degenerative disc disease is seen at L2/L3. Mild degenerative disc disease is seen at L3/L4 and L4/L5. Clips in the pelvis are related to prior surgery. Procedure Note Francis Kennedy MD - 06/26/2020 Lumbar spine 3 views history: Back pain FINDINGS: Mild levoscoliosis is seen in the lumbar spine. No fracture or spondylolysis is seen. Mild degenerative disc disease is seen at L2/L3. Mild degenerative disc disease is seen at L3/L4 and L4/L5. Clips in the pelvis are related to prior surgery. IMPRESSION Mild degenerative change in the lumbar spine. No fracture or spondylolysis is seen. *Reading Radiologist: Francis Kennedy on 06/26/2020 at 12:26 PM Glendy Bruner [employer] NURSE DIAGNOSTIC IMAGING ORDERABLES * XR KNEE LEFT 4VW OR MORE (10/19/2019 1:12 PM BILINGUAL RECEPTIONIST) Anatomical Region Laterality Modality Lower Extremity Radiographic Mckenna ging Narrative 10/19/2019 1:12 PM BILINGUAL RECEPTIONIST Marlys Sanford SErika, RT 10/19/2019 1:25 PM Please see progress note in Epic for results. Woody Doe DO DIAGNOSTIC IMAGING ORDERABLES * XR PELVIS W RIGHT HIP 1VW (10/19/2019 1:11 PM BILINGUAL RECEPTIONIST) Anatomical Region Laterality Modality Pelvis Radiographic Mckenna ging Narrative 10/19/2019 1:12 PM BILINGUAL RECEPTIONIST Marlys Sanford S., RT 10/19/2019 1:25 PM Please see progress note in Epic for results. Woody Galvan Satterjeremiah DO DIAGNOSTIC IMAGING ORDERABLES * TSH REFLEX FREE T4 (08/13/2019 8:33 AM BILINGUAL RECEPTIONIST) Only the most recent of2 resultswithin the time period is included. TSH 3.3035 0.35 - 4.94 ulU/mL [facility] ACCOUNT BILL Comment:FASTING Blood BLOOD SPECIMEN / Unknown 08/13/2019 8:33 AM BILINGUAL RECEPTIONIST 08/13/2019 Narrative Resulting Agency Comment Lab Testing performed at: [address] Darshan AYERS [phone] German Monahan Jr., MD LAB - CHEMISTRY O USAMA Performing Organization Address [facility] Co de Phone Number [facility] ACCOUNT BILL [address] [place] [address] * (ABNORMAL) TESTOSTERONE FREE+TOT PANEL (08/13/2019 8:33 AM BILINGUAL RECEPTIONIST) Testosterone Total LC-MS 279.9 264.0 - 916.0 ng/dL [facility] ACCOUNT BILL Comment: This [facility] LC/MS-MS method is currently certified by the CDC Hormone Standardization Program (HoSt). Adult male reference interval is based on a population of healthy nonobese males (BMI <30) between 19 and 39 years old. Leti et.al. JCEM 2017,102;8400-1617. PMID: [id number]. Free Testosterone(Direct ) 5.3(L) 7.2 - 24.0 pg/mL [facility] ACCOUNT BILL Comment:FASTING Blood BLOOD SPECIMEN / Unknown 08/13/2019 8:33 AM BILINGUAL RECEPTIONIST 08/13/2019 Narrative [facility] ACCOUNT BILL - 08/18/2019 6:08 AM BILINGUAL RECEPTIONIST Test(s) [id number]--[id number], Total, LC/MS was developed and its performance characteristics determined by [facility]. It has not been cleared or approved by the Food and Drug Administration. Resulting Agency Comment Lab Testing performed at: [address] [phone] German Monahan Jr., MD LAB - CHEMISTRY Shine FORRESTER Performing Organization Address City/[facility]/ZIP Co de Phone Number [facility] ACCOUNT BILL [address] [place] [address] * T4 FREE (08/13/2019 8:33 AM BILINGUAL RECEPTIONIST) T4 Free Direct NOT NEEDED LAB OR ACCOUNT BILL Comment: Test not performed FASTING Ancillary determined the test is not needed. 08/13/2019 8:33 AM BILINGUAL RECEPTIONIST 08/13/2019 Narrative Resulting Agency Comment Lab Testing performed at: [facility] [address] [place] [phone] German Monahan Jr., MD LAB - CHEMISTRY O RDERABLES [facility] ACCOUNT [place]ILL [place] [address] * HELICOBACTER PYLORI UREASE (STL) (08/05/2019 8:39 AM CDT) Helicobacter pylori Urease Initial Negative Negative 08/06/2019 11:08 AM CDT [facility] Helicobacter pylori Urease Final Negative Negative 08/06/2019 11:08 AM CDT [facility] Microbiology GASTRIC ANTRAL BIOPSY SPECIMEN / Unknown Collection / Unknown 08/05/2019 8:39 AM CDT 08/06/2019 11:06 AM CDT Angel Coyle MD LAB - MICROBIOLOGY O RDERAWESTON Performing Organization Address City/[facility]/ZIP Co de Phone Number [facility] [address] [place] [address] * EGD (08/05/2019) Oly Butron [employer] N[facility]SE GI PROCEDUR E ORDERABLES Performing Organization Address City/[facility]/ZIP Co de Phone Number [facility] RESULT SCAN * (ABNORMAL) CREATININE BLOOD - POINT OF CARE (IP) (08/02/2019 3:39 PM CDT) Only the most recent of4 resultswithin the time period is included. Pathologist [facility] Creatinine POCT 0.62(A) 0.7 - 1.2 mg/dL [facility] Comment:Above 60 GFR. QC Verified Yes Yes [facility] Blood BLOOD SPECIMEN / Unknown 08/02/2019 3:39 PM CDT Elsi Trujillo [employer] N[facility]SE LAB - POINT OF CARE ORDERABLES Performing Organization Address City/[facility]/ZIP Co de Phone Number [facility] [address] [place] [address], [facility] * PERIPHERAL BLOCK (02/15/2019 3:27 PM CDT) Karishma Young MD - 02/15/2019 3:27 PM CDT Karishma Marshall MD 02/15/2019 3:27 PM Peripheral Nerve Block Procedure: Peripheral Nerve Block Patient Location: Pre-op Procedure Section Indications: at surgeon's request and postop pain management. Pre-anesthetic Checklist: Patient identified, IV Checked, Site examined and clear, Risks and benefits discussed, Surgical consent verified, Monitors and equipment, Time-out performed, Informed consent obtained, Pre-op evaluation done, Questions answered/anesthesia questions answered, Allergies reviewed and Removal hand/wrist jewelry Patient Sedated? Patient Sedated? Yes Block Performed: interscalene Prep: Chloraprep Needle Type: nerve stimulator Catheter? No Nerve Stimulator? Yes Loss of Stimulation at (mA): 0.4 Ultrasound Guided? Yes Technique: in plane Injection was made incrementally with constant monitoring and aspirations every 5 mL's Slow fractionated injection Block Agents: 30 mL of 0.5% Bupivacaine Epineprhine: 5 mcg/mL (1/200,000) Procedure Tolerance: tolerated well. Assessment: completed Procedure Start Time: 09/17/2018 7:44 AM. Procedure End Time: 09/17/2018 7:54 AM. Staff Section Anesthesia Provider: KARISHMA MARSHALL, Performed the procedure Procedure Note Karishma Marshall MD - 09/17/2018 7:53 AM CST Peripheral Nerve Block Procedure: Peripheral Nerve Block Patient Location: Pre-op Procedure Section Indications: at surgeon's request and postop pain management. Pre-anesthetic Checklist: Patient identified, IV Checked, Site examinedand clear, Risks and benefits discussed, Surgical consent verified,Monitors and equipment, Time-out performed, Informed consent obtained,Pre-op evaluation done, Questions answered/anesthesia questions answered,Allergies reviewed and Removal hand/wrist jewelry Patient Sedated? Patient Sedated? Yes Block Performed: interscalene Prep: Chloraprep Needle Type: nerve stimulator Catheter? No Nerve Stimulator? Yes Loss of Stimulation at (mA): 0.4 Ultrasound Guided? Yes Technique: in plane Injection was made incrementally with constant monitoring and aspirationsevery 5 mL's Slow fractionated injection Block Agents: 30 mL of 0.5% Bupivacaine Epineprhine: 5 mcg/mL (1/200,000) Procedure Tolerance: tolerated well. Assessment: completed Procedure Start Time: 09/17/2018 7:44 AM. Procedure End Time: 09/17/2018 7:54 AM. Staff Section Anesthesia Provider: KARISHMA MARSHALL, Performed the procedure Karishma Marshall MD GENERAL ANESTHESIA O RDERABLES * INTERPRETATION REFLEXED (10/22/2018 9:26 AM BILINGUAL RECEPTIONIST) Interpretation [facility] ACCOUNT BILL Comment: Negative Not infected with HCV, unless recent infection is suspected or other evidence exists to indicate HCV infection. 10/22/2018 9:26 AM BILINGUAL RECEPTIONIST 10/22/2018 Narrative Resulting Agency Comment [facility] [address] [facility] [phone] German Monahan Jr., MD LAB - SEROLOGY OR DERABLES Performing Organization Address City/[facility] Co de Phone Number [facility] ACCOUNT BILL [address] [place] [address] * HEPATITIS C ANTIBODY W RFLX PCR (10/22/2018 9:26 AM BILINGUAL RECEPTIONIST) Hepatitis C Antibody 0.1 0.0 - 0.9 s/co ratio [facility] ACCOUNT BILL Blood BLOOD SPECIMEN / Unknown 10/22/2018 9:26 AM BILINGUAL RECEPTIONIST 10/22/2018 Narrative Resulting Agency Comment [facility] [address] [facility] [place] [phone] German Monahan Jr., MD LAB - CHEMISTRY O RDERABLES Performing Organization Address City/[facility] Co de Phone Number [facility] ACCOUNT BILL [address] [place] [address] * URIC ACID BLOOD (10/22/2018 9:26 AM BILINGUAL RECEPTIONIST) Only the most recent of2 resultswithin the time period is included. Uric Acid 6.8 3.7 - 8.6 mg/dL [facility] ACCOUNT BILL Comment:Therapeutic target f or gout patients: <6.0 Blood BLOOD SPECIMEN / Unknown 10/22/2018 9:26 AM BILINGUAL RECEPTIONIST 10/22/2018 Narrative Resulting Agency Comment [facility] [address] [facility] [id number] German Monahan Jr., MD LAB - CHEMISTRY O USAMA Performing Organization Address [facility] Co de Phone Number [facility] ACCOUNT BILL [address] [place] [address] * HEMOGLOBIN A1C (10/22/2018 9:26 AM BILINGUAL RECEPTIONIST) Hemoglobin A1c 5.2 4.8 - 5.6 % [facility] ACCOUNT BILL Comment: . Prediabetes: 5.7 - 6.4 Diabetes: >6.4 Glycemic control for adults with diabetes: <7.0 Blood BLOOD SPECIMEN / Unknown 10/22/2018 9:26 AM BILINGUAL RECEPTIONIST 10/22/2018 Narrative Resulting Agency Comment [facility] [address] [facility] [phone] German Monahan Jr., MD LAB - CHEMISTRY Shine FORRESTER Performing Organization Address [facility] de Phone Number [facility] ACCOUNT BILL [address] [place] [address] * CARDIAC RHYTHM STRIP ORDER (09/19/2018 1:30 AM BILINGUAL RECEPTIONIST) Only the most recent of2 resultswithin the time period is included. Narrative 09/19/2018 1:30 AM BILINGUAL RECEPTIONIST Ordered by an unspecified provider. Scanned Document CARDIAC SERVICES ORD ERABLES * ENDOSCOPY, COLON, SCREENING (08/17/2018) Angel Coyle MD GI PROCEDURE ORDERAB LES Performing Organization Address [facility] Co de Phone Number [facility] RESULT SCAN * MRI SHOULDER LEFT W CONTRAST (12/31/2017 12:07 PM CDT) Anatomical Region Laterality Modality Upper Extremity Magnetic Resonan ce 12/31/2017 2:40 PM CDT Impressions 12/31/2017 2:55 PM CDT Diffuse labral degeneration with focal tear extending from anterior superior inferiorly along the anterior glenoid rim, including some periosteal stripping. Suspect bony and soft tissue Bankart lesions with corresponding Hill-Sachs defect at the humerus, which suggests the injury is are related to patient's prior history of dislocation. Infraspinatus tendinosis; articular surface fraying; small perforated defect between the supraspinatus and infraspinatus tendons. Mild acromioclavicular joint osteoarthrosis. Narrative 12/31/2017 2:55 PM CDT MRI of the LEFT shoulder following fluoroscopic arthrogram contrast injection COMPARISON: Radiographs 10/27/2017 HISTORY: History from RIS: JOINT PAIN-SHLDER TECHNIQUE: Multiplanar multisequence MR imaging of the LEFT shoulder without intravenous contrast but following fluoroscopically guided intra-articular dilute gadolinium injection according to standard protocol. FINDINGS: Diffuse labral degeneration. In addition, there is a focal tear at the anterior superior labrum which extends inferiorly along the anterior glenoid rim. There is periosteal stripping along the anterior glenoid rim with cortical irregularity at the anterior inferior glenoid. There is a subtle cortical irregularity along the posterior superior humeral head. Suspect all of these findings collectively are related to the patient's history of dislocation and reflect Hill-Sachs defect at the humerus with bony and soft tissue Bankart lesions at the glenoid. Intra-articular long head of biceps tendinosis without tear. Perforative defect between the supraspinatus and infraspinatus tendons. Articular surface fraying along the infraspinatus tendon. Subscapularis and teres minor are intact. Mild osteoarthrosis changes at the acromioclavicular joint. Type II acromion. Glenohumeral cartilage intact. Procedure Note Josue Morgan MD - 12/31/2017 MRI of the LEFT shoulder following fluoroscopic arthrogram contrast injection COMPARISON: Radiographs 10/27/2017 HISTORY: History from RIS: JOINT PAIN-SHLDER TECHNIQUE: Multiplanar multisequence MR imaging of the LEFT shoulder without intravenous contrast but following fluoroscopically guided intra-articular dilute gadolinium injection according to standard protocol. FINDINGS: Diffuse labral degeneration. In addition, there is a focal tear at the anterior superior labrum which extends inferiorly along the anterior glenoid rim. There is periosteal stripping along the anterior glenoid rim with cortical irregularity at the anterior inferior glenoid. There is a subtle cortical irregularity along the posterior superior humeral head. Suspect all of these findings collectively are related to the patient's history of dislocation and reflect Hill-Sachs defect at the humerus with bony and soft tissue Bankart lesions at the glenoid. Intra-articular long head of biceps tendinosis without tear. Perforative defect between the supraspinatus and infraspinatus tendons. Articular surface fraying along the infraspinatus tendon. Subscapularis and teres minor are intact. Mild osteoarthrosis changes at the acromioclavicular joint. Type II acromion. Glenohumeral cartilage intact. IMPRESSION Diffuse labral degeneration with focal tear extending from anterior superior inferiorly along the anterior glenoid rim, including some periosteal stripping. Suspect bony and soft tissue Bankart lesions with corresponding Hill-Sachs defect at the humerus, which suggests the injury is are related to patient's prior history of dislocation. Infraspinatus tendinosis; articular surface fraying; small perforated defect between the supraspinatus and infraspinatus tendons. Mild acromioclavicular joint osteoarthrosis. Jayjay Prieto MD MR ORDERABLES * FL SHOULDER LEFT ARTHROGRAM (12/31/2017 10:50 AM CDT) Anatomical Region Laterality Modality Upper Extremity Radio Fluoroscop y 12/31/2017 1:01 PM CDT Impressions 12/31/2017 1:02 PM CDT Successful fluoroscopic guided injection of intra-articular Gadolinium for subsequent MRI examination. Narrative 12/31/2017 1:02 PM CDT Fluoroscopically guided arthrogram of the LEFT shoulder prior to MRI. COMPARISON: 10/27/2017 radiographs. HISTORY: Concern for labral tear. HISTORY: Pain in left shoulder FLUOROSCOPY TIME: 59 seconds. TECHNIQUE AND FINDINGS: Time out procedure was performed. Informed consent was obtained and documented: the risks included but not limited to pain, bleeding, infection and damage to structures. Patient was placed supine on the fluoroscopy table. Suitable skin entry site was localized with fluoroscopy. Patient's skin was prepped and draped in the usual sterile fashion. Subcutaneous 1% lidocaine anesthesia was provided. Under direct fluoroscopic guidance a 22-gauge spinal needle was inserted into the glenohumeral joint space overlying the inferomedial humeral head. A standard 1-200 dilution of gadolinium, Dotarem, along with iodinated contrast was instilled into the joint space; total volume was 12 cc. Fluoroscopic images confirmed the intra-articular injection. Needle was withdrawn. Patient tolerated the procedure without complication. Patient was transferred to MRI in good condition for subsequent joint MRI. Procedure Note Josue Morgan MD - 12/31/2017 Fluoroscopically guided arthrogram of the LEFT shoulder prior to MRI. COMPARISON: 10/27/2017 radiographs. HISTORY: Concern for labral tear. HISTORY: Pain in left shoulder FLUOROSCOPY TIME: 59 seconds. TECHNIQUE AND FINDINGS: Time out procedure was performed. Informed consent was obtained and documented: the risks included but not limited to pain, bleeding, infection and damage to structures. Patient was placed supine on the fluoroscopy table. Suitable skin entry site was localized with fluoroscopy. Patient's skin was prepped and draped in the usual sterile fashion. Subcutaneous 1% lidocaine anesthesia was provided. Under direct fluoroscopic guidance a 22-gauge spinal needle was inserted into the glenohumeral joint space overlying the inferomedial humeral head. A standard 1-200 dilution of gadolinium, Dotarem, along with iodinated contrast was instilled into the joint space; total volume was 12 cc. Fluoroscopic images confirmed the intra-articular injection. Needle was withdrawn. Patient tolerated the procedure without complication. Patient was transferred to MRI in good condition for subsequent joint MRI. IMPRESSION Successful fluoroscopic guided injection of intra-articular Gadolinium for subsequent MRI examination. Jayjay Prieto MD FLUOROSCOPY ORDERABL ES * XR SHOULDER RIGHT 2VW OR MORE (12/24/2017 2:08 PM CDT) Anatomical Region Laterality Modality Upper Extremity Radiographic Mckenna ging Narrative 12/24/2017 6:13 PM CDT Cramen Christie, RT(R) 12/24/2017 6:13 PM Please see chart for x ray report. Jayjay Prieto MD DIAGNOSTIC IMAGING O RDERABLES * XR TEMPROMANDIBULAR JOINTS BILATERAL (10/27/2017 3:30 PM BILINGUAL RECEPTIONIST) Anatomical Region Laterality Modality Head Radiographic Mckenna ging 10/27/2017 4:06 PM BILINGUAL RECEPTIONIST Impressions 10/27/2017 4:10 PM BILINGUAL RECEPTIONIST No fracture or bone lesion is seen in either mandibular condyle. There is limited excursion on the open mouth views as compared to the close mouth views. Narrative 10/27/2017 4:10 PM BILINGUAL RECEPTIONIST Bilateral TMJ x-rays HISTORY: Right TMJ joint pain FINDINGS: No fracture or bone lesion is seen in either mandibular condyle. Both TMJ joints appear relatively well-preserved. There is limited excursion on the open mouth views as compared to the closed mouth views. Procedure Note Francis Kennedy MD - 10/27/2017 Bilateral TMJ x-rays HISTORY: Right TMJ joint pain FINDINGS: No fracture or bone lesion is seen in either mandibular condyle. Both TMJ joints appear relatively well-preserved. There is limited excursion on the open mouth views as compared to the closed mouth views. IMPRESSION No fracture or bone lesion is seen in either mandibular condyle. There is limited excursion on the open mouth views as compared to the close mouth views. German Monahan Jr., MD DIAGNOSTIC IMAGIN G ORDERABLES * XR SHOULDER MIN 3 VIEWS LEFT (10/27/2017 2:20 PM BILINGUAL RECEPTIONIST) Anatomical Region Laterality Modality Upper Extremity Radiographic Mckenna ging 10/27/2017 2:29 PM BILINGUAL RECEPTIONIST Impressions 10/27/2017 2:29 PM BILINGUAL RECEPTIONIST Healed left clavicular fracture otherwise essentially negative Narrative 10/27/2017 2:29 PM BILINGUAL RECEPTIONIST Left Shoulder HISTORY: Pain no injury. Three views were obtained. COMPARISON: None . There is an old healed left mid clavicular fracture deformity. There is no acute fracture or dislocation seen. The joint spaces are intact. There are no periarticular calcifications. The adjacent ribs appear normal. Procedure Note Hilton Ramos MD - 10/27/2017 Left Shoulder HISTORY: Pain no injury. Three views were obtained. COMPARISON: None . There is an old healed left mid clavicular fracture deformity. There is no acute fracture or dislocation seen. The joint spaces are intact. There are no periarticular calcifications. The adjacent ribs appear normal. IMPRESSION Healed left clavicular fracture otherwise essentially negative German Monahan Jr., MD DIAGNOSTIC IMAGIN G ORDERABLES * MRI ABDOMEN WITH AND WITHOUT CONTRAST (10/16/2017 4:00 PM BILINGUAL RECEPTIONIST) Anatomical Region Laterality Modality Abdomen Magnetic Resonan ce 10/17/2017 8:53 AM BILINGUAL RECEPTIONIST Impressions 10/17/2017 9:03 AM BILINGUAL RECEPTIONIST Small hemangioma, hepatic segment VII. Scattered, tiny simple hepatic cysts. Small bilateral renal cysts. Examination otherwise within normal limits. Narrative 10/17/2017 9:03 AM BILINGUAL RECEPTIONIST Procedure Title: MRI ABDOMEN WWO CONTRAST*[id number] HISTORY: Other specified abnormal findings of blood chemistry. COMPARISON: 05/27/2017 and earlier. TECHNIQUE: Multiplanar multisequence MR imaging with and without intravenous contrast of the abdomen. Contrast Details: EGFR greater than 45. Eovist, in mL: 9. FINDINGS: Liver is normal in contour and signal. Scattered simple hepatic cysts redemonstrated. There is a small hemangioma in segment VII. Apparent T2 bright focus in segment 4 (18:20) is artifactual secondary to susceptibility from the adjacent colon. Small bilateral renal cysts. Kidneys otherwise unremarkable. Spleen, pancreas, adrenal glands, and gallbladder are normal. No biliary or pancreatic ductal dilation. No free fluid in the abdomen. Visualized bowel unremarkable. No adenopathy. Aorta, IVC, and portal vasculature are patent. No focal osseous lesion. Lung bases unremarkable. Procedure Note Josue Morgan MD - 10/17/2017 Procedure Title: MRI ABDOMEN WWO CONTRAST*[id number] HISTORY: Other specified abnormal findings of blood chemistry. COMPARISON: 05/27/2017 and earlier. TECHNIQUE: Multiplanar multisequence MR imaging with and without intravenous contrast of the abdomen. Contrast Details: EGFR greater than 45. Eovist, in mL: 9. FINDINGS: Liver is normal in contour and signal. Scattered simple hepatic cysts redemonstrated. There is a small hemangioma in segment VII. Apparent T2 bright focus in segment 4 (18:20) is artifactual secondary to susceptibility from the adjacent colon. Small bilateral renal cysts. Kidneys otherwise unremarkable. Spleen, pancreas, adrenal glands, and gallbladder are normal. No biliary or pancreatic ductal dilation. No free fluid in the abdomen. Visualized bowel unremarkable. No adenopathy. Aorta, IVC, and portal vasculature are patent. No focal osseous lesion. Lung bases unremarkable. IMPRESSION Small hemangioma, hepatic segment VII. Scattered, tiny simple hepatic cysts. Small bilateral renal cysts. Examination otherwise within normal limits. German Monahan Jr., MD MR ORDERABLES * ENDOSCOPY, COLON, DIAGNOSTIC (07/07/2017) Oly Burton [employer] GI PROCEDUR E ORDERABLES [facility] RESULT SCAN * LIPASE BLOOD (05/08/2017 8:01 AM CDT) Lipase 246 73 - 393 U/L [facility] ACCOUNT BILL Blood BLOOD SPECIMEN / Unknown 05/08/2017 8:01 AM CDT 05/08/2017 Narrative Resulting Agency Comment [facility] [address] [place] [phone] German Monahan Jr., MD LAB - CHEMISTRY O RDERABLES [facility] ACCOUNT BILL [address] [place] [address] * XR CERVICAL SPINE MIN 4+ VW (10/04/2016 9:54 AM BILINGUAL RECEPTIONIST) Anatomical Region Laterality Modality Spine Radiographic Mckenna ging 10/04/2016 11:5 5 AM BILINGUAL RECEPTIONIST Impressions 10/04/2016 11:58 AM BILINGUAL RECEPTIONIST No evidence of compression fracture or spondylolisthesis. Slightly decreased C5-C6 intervertebral space height. No prevertebral soft tissue swelling. Narrative 10/04/2016 11:58 AM BILINGUAL RECEPTIONIST Cervical spine series with oblique views. HISTORY: 56-year-old with left-sided neck pain for 6 months. Not known injury. Comparisons: None relevant. FINDINGS: The cervical lordosis is preserved. The cervicothoracic junction is well aligned. The heights of the vertebral bodies are maintained. There is no evidence of compression fracture or spondylolisthesis. The C5-6 intervertebral space height is slightly decreased, with uncovertebral spurring, consistent with spondylotic degenerative changes. The alignment of the lateral masses of C1 and C2 is normal. The prevertebral soft tissues appear preserved. Procedure Note Sandy Maxwell MD - 10/04/2016 Cervical spine series with oblique views. HISTORY: 56-year-old with left-sided neck pain for 6 months. Not known injury. Comparisons: None relevant. FINDINGS: The cervical lordosis is preserved. The cervicothoracic junction is well aligned. The heights of the vertebral bodies are maintained. There is no evidence of compression fracture or spondylolisthesis. The C5-6 intervertebral space height is slightly decreased, with uncovertebral spurring, consistent with spondylotic degenerative changes. The alignment of the lateral masses of C1 and C2 is normal. The prevertebral soft tissues appear preserved. IMPRESSION No evidence of compression fracture or spondylolisthesis. Slightly decreased C5-C6 intervertebral space height. No prevertebral soft tissue swelling. German Monahan Jr., MD DIAGNOSTIC IMAGIN G ORDERABLES * XR KNEE 3 VW LEFT (06/17/2016 11:17 AM CDT) Anatomical Region Laterality Modality Lower Extremity Radiographic Mckenna ging 06/17/2016 1:38 PM CDT Impressions 06/17/2016 1:39 PM CDT Negative exam. Narrative 06/17/2016 1:39 PM CDT Left knee Comparison:None HISTORY: Medial pain for 5 days Two views were obtained. The osseous structures appear intact. There is no fracture or dislocation seen. The joint spaces are intact. There is no joint effusion. There are a few well-corticated calcifications near the patella tendon attachment to the tibia and not felt to be acute. Procedure Note Hilton Ramos MD - 06/17/2016 Left knee Comparison:None HISTORY: Medial pain for 5 days Two views were obtained. The osseous structures appear intact. There is no fracture or dislocation seen. The joint spaces are intact. There is no joint effusion. There are a few well-corticated calcifications near the patella tendon attachment to the tibia and not felt to be acute. IMPRESSION Negative exam. Elsi Trujillo [employer] N[employer]SE DIAGNOSTIC IMAG ING ORDERABLES * STREP A SCREEN - POCT (IP) URGENT CARE (06/08/2016 10:47 AM CDT) Only the most recent of2 resultswithin the time period is included. Pathologist [facility] Strep A Rapid POCT Negative Negative [facility] POCT TESTING QC Verified Yes Yes [facility] POC T TESTING Throat swab (specimen) ENTIRE THROAT (SURFACE REGION OF NECK) / Unknown 06/08/2016 10:47 AM CDT Judy Hill [employer] N[employer]SE LAB - POINT O F CARE ORDERABLES [facility] POCT TESTING [address] * (ABNORMAL) CULTURE AEROBIC (02/02/2015 11:50 AM CDT) Aerobic Bacterial Culture Final report(A) [facility] ACCOUNT BILL Result 1 Staphylococcus aureus(A) [facility] ACCOUNT BILL Comment: Moderate growth Based on resistance to penicillin and susceptibility to oxacillin this isolate would be susceptible to: * Penicillinase-stable penicillins; such as: Cloxacillin Dicloxacillin Nafcillin * Beta-lactam/beta-lactamase inhibitor combinations; such as: Amoxicillin-clavulanic acid Ampicillin-sulbactam * Antistaphylococcal cephems; such as: Cefaclor Cefuroxime * Antistaphylococcal carbapenems; such as: Imipenem Meropenem Antimicrobial Susceptibility [facility] ACCOUNT BILL Comment: S = Susceptible; I = Intermediate; R = Resistant P = Positive; N = Negative MICS are expressed in micrograms per mL Antibiotic RSLT#1 RSLT#2 RSLT#3 RSLT#4 Ciprofloxacin R Clindamycin S Erythromycin S Gentamicin S Levofloxacin I Linezolid S Moxifloxacin R Oxacillin S Penicillin R Quinupristin/Dalfopristin S Rifampin S Tetracycline S Trimethoprim/Sulfa S Vancomycin S Miscellaneous samples (specimen) BIOPSY OF NOSE / Unknown 02/02/2015 11:50 AM CDT 02/02/2015 5:37 PM CDT Narrative Resulting Agency Comment [facility] [address] [phone] Elsi Trujillo [employer] N[employer]SE LAB - MICROBIOL OGY ORDERABLES [facility] ACCOUNT BILL * LDL CHOLESTEROL (07/28/2013 3:31 PM CDT) Only the most recent of2 resultswithin the time period is included. LDL Direct 87 0 - 99 mg/dL [facility] ACCOUNT BILL Comment NOT NEEDED [facility] ACCOUNT BILL Comment:Ancillary determined the test is not needed Blood specimen (specimen) BLOOD SPECIMEN / Unknown 07/28/2013 3:31 PM CDT 07/28/2013 6:11 PM CDT Narrative Resulting Agency Comment [facility] [phone] German Monahan Jr., MD LAB - CHEMISTRY O RDERAWESTON Performing Organization Address [facility] de Phone Number [facility] ACCOUNT BILL * TSH (07/28/2013 3:31 PM CDT) Only the most recent of4 resultswithin the time period is included. TSH 2.910 0.450 - 4.500 uIU/mL [facility] ACCOUNT BILL Blood specimen (specimen) BLOOD SPECIMEN / Unknown 07/28/2013 3:31 PM CDT 07/28/2013 6:11 PM CDT Narrative Resulting Agency Comment [facility] [phone] German Monahan Jr., MD LAB - CHEMISTRY O RDERAWESTON Performing Organization Address [facility] Co de Phone Number [facility] ACCOUNT BILL * ENDOSCOPY, COLON, DIAGNOSTIC (12/28/2012) Angel Coyle MD GI PROCEDURE ORDERAB LES Performing Organization Address [facility] Co de Phone Number [facility] RESULT SCAN * MRI BRAIN WITH AND WITHOUT CONTRAST (02/19/2012 4:47 PM CDT) Anatomical Region Laterality Modality Head Magnetic Resonan ce 02/19/2012 4:58 PM CDT Impressions 02/19/2012 4:58 PM CDT Few tiny scattered T2 hyperintense foci in white matter suggest nonspecific demyelination. No mass or abnormal enhancement. No imaging findings to explain patient's symptoms. Narrative 02/19/2012 4:58 PM CDT HISTORY: Orgasmic headaches for 10 years. MRI brain with and without contrast. TECHNIQUE: Multiplanar, mutiweighted MR images of brain were obtained before and after intravenous contrast. FINDINGS: Tiny scattered T2 hyperintense foci in white matter suggest nonspecific demyelination. Ventricles and sulci are within normal limits in size. There is no intracranial hemorrhage, mass, or mass-effect. No abnormal extra-axial fluid collection is seen. After administration of gadolinium, there is no abnormal enhancement. The region of the pituitary gland, pineal gland, and foramen magnum are normal. Visualized cranial and facial soft tissues are unremarkable. Major arterial and dural venous flow-voids at the skull base are patent. There is no diffusion abnormality to suggest acute infarction. Procedure Note Manjeet Mauro MD - 02/19/2012 HISTORY: Orgasmic headaches for 10 years. MRI brain with and without contrast. TECHNIQUE: Multiplanar, mutiweighted MR images of brain were obtained before and after intravenous contrast. FINDINGS: Tiny scattered T2 hyperintense foci in white matter suggest nonspecific demyelination. Ventricles and sulci are within normal limits in size. There is no intracranial hemorrhage, mass, or mass-effect. No abnormal extra-axial fluid collection is seen. After administration of gadolinium, there is no abnormal enhancement. The region of the pituitary gland, pineal gland, and foramen magnum are normal. Visualized cranial and facial soft tissues are unremarkable. Major arterial and dural venous flow-voids at the skull base are patent. There is no diffusion abnormality to suggest acute infarction. IMPRESSION Few tiny scattered T2 hyperintense foci in white matter suggest nonspecific demyelination. No mass or abnormal enhancement. No imaging findings to explain patient's symptoms. German Monahan Jr., MD MR ORDERABLES * (ABNORMAL) TESTOSTERONE FREE+TOT MALE PANEL (01/24/2012 3:49 PM CDT) Only the most recent of2 resultswithin the time period is included. Testosterone 211(L) 348 - 1197 ng/dL [facility] ACCOUNT BILL Free Testosterone(Dire ct) 4.8(L) 6.8 - 21.5 pg/mL [facility] ACCOUNT BILL Blood specimen (specimen) BLOOD SPECIMEN / Unknown 01/24/2012 3:49 PM CDT 01/24/2012 6:01 PM CDT Narrative Resulting Agency Comment [facility] [address] [phone] German Monahan Jr., MD LAB - CHEMISTRY O RDERABLES Performing Organization Address City/[facility]/ZIP Co de Phone Number [facility] ACCOUNT BILL * SED RATE WESTERGREN AUTO (02/20/2011 1:25 PM CDT) Only the most recent of2 resultswithin the time period is included. Erythrocyte Sedimentation Rate Westergren 9 0 - 15 mm/hr [facility] ACCOUNT BILL BLOOD SPECIMEN / Unknown 02/20/2011 1:25 PM CDT 02/20/2011 6:09 PM CDT Narrative Resulting Agency Comment [facility] [place] [id number] [facility] [phone] German Monahan Jr., MD LAB - HEMATOLOGY ORDERABLES Performing Organization Address [facility] Co de Phone Number [facility] ACCOUNT BILL * URINALYSIS ROUTINE W/REFLEX TO CULTURE (12/10/2010 3:58 PM BILINGUAL RECEPTIONIST) Specific Bloxom UA 1.013 1.005 - 1.030 [facility] ACCOUNT BILL pH UA 6.5 5.0 - 7.5 [facility] ACCOUNT BILL Color UA Yellow Yellow [facility] ACCOUNT BILL Appearance Clear Clear [facility] ACCOUNT BILL Leukocyte UA Negative Negative [facility] ACCOUNT BILL Protein UA Negative Negative/Tra ce [facility] ACCOUNT BILL Glucose UA Negative Negative [facility] ACCOUNT BILL Glucose Reflex NOT NEEDED [facility] ACCOUNT BILL Comment:Ancillary determined the test is not needed Ketone UA Negative Negative [facility] ACCOUNT BILL Occult Blood Urine Negative Negative [facility] ACCOUNT BILL Bilirubin UA Negative Negative [facility] ACCOUNT BILL Urobilinogen 0.2 0.0 - 1.9 mg/dL [facility] ACCOUNT BILL Nitrite UA Negative Negative [facility] ACCOUNT BILL Microscopic Examination Urine [facility] ACCOUNT BILL Comment:Microscopic follows if indicated. Microscopic Examination Urine See below: [facility] ACCOUNT BILL Urinalysis Reflex [facility] ACCOUNT BILL Comment:This specimen will n ot reflex to a Urine Culture. URINE SPECIMEN OBTAINED BY CLEAN CATCH PROCEDURE / Unknown 12/10/2010 3:58 PM BILINGUAL RECEPTIONIST 12/10/2010 11:25 PM BILINGUAL RECEPTIONIST Narrative Resulting Agency Comment [facility] [address] [phone] German Monahan Jr., MD LAB - URINALYSIS ORDERABLES Performing Organization Address City/[facility]/ZIP Co de Phone Number [facility] ACCOUNT BILL * URINALYSIS MICROSCOPIC ONLY (12/10/2010 3:58 PM BILINGUAL RECEPTIONIST) WBC UA None seen 0 - 5 /hpf [facility] ACCOUNT BILL RBC UA 0-3 0 - 3 /hpf [facility] ACCOUNT BILL Epithelial Cells (non renal) None seen 0 - 10 /hpf [facility] ACCOUNT BILL Epithelial Cells (renal) NOT NEEDED [facility] ACCOUNT BILL Comment:Ancillary determined the test is not needed Casts ua NOT NEEDED [facility] ACCOUNT BILL Comment:Ancillary determined the test is not needed Casts UA NOT NEEDED [facility] ACCOUNT BILL Comment:Ancillary determined the test is not needed Crystals UA NOT NEEDED [facility] ACCOUNT BILL Comment:Ancillary determined the test is not needed Crystals UA NOT NEEDED [facility] ACCOUNT BILL Comment:Ancillary determined the test is not needed Mucus UA Present Not Estab. [facility] ACCOUNT BILL Bacteria UA Few None seen/Few [facility] ACCOUNT BILL Yeast UA NOT NEEDED [facility] ACCOUNT BILL Comment:Ancillary determined the test is not needed Trichomonas UA NOT NEEDED [facility] ACCOUNT BILL Comment:Ancillary determined the test is not needed Comment Urine NOT NEEDED [facility] ACCOUNT BILL Comment:Ancillary determined the test is not needed 12/10/2010 3:58 PM BILINGUAL RECEPTIONIST 12/10/2010 11:25 PM BILINGUAL RECEPTIONIST Narrative Resulting Agency Comment [facility] [place] [id number] [facility] [id number] German Monahan Jr., MD LAB - URINALYSIS ORDERABLES Performing Organization Address City/[facility]/ZIP Co de Phone Number [facility] ACCOUNT BILL * STRESS TEST NUCLEAR (07/13/2010 12:46 PM CDT) Valerie Erickson [employer] ORDERABLES * AMB REFERRAL TO CARDIOLOGY (08/16/2008) German Monahan Jr., MD OUTPATIENT REFERR ALS * LA CARDIAC STRESS TST,COMPLETE, LA STRESS TTE W/ INTERP/REPORT (08/10/2008) Narrative Stephanie Abdullahi - 08/10/2008 Type of Stress Test: Treadmill stress echocardiogram PATIENT INFORMATION: KYLER LEACH Age: 48 y.o. : 1960 Height/Weight: Ht 1.778 m (5' 10 ) Wt 82.555 kg (182 lb) Sex: male REASON FOR PERFORMING TEST: DYSPNEA; CHEST DISCOMFORT (BURNING) TAPE RISK FACTORS: Hypertension: Negative Hyperlipids: Negative Diabetes: Negative Smoking History: History Tobacco Use Quit Quit date: 10/06/2001 Family History: NONE CAD: Negative Previous VA: Negative Post PTCA: Negative Resting EKG: Sinus bradycardia, LVH. Predicted Heart Rate: 100% = 174 85% = 147 EXERCISE BP PULSE SYMPTOMS 110/84 53 Reached 85% () at 11:00 min Standing 3 min exercise 130/90 75 6 min exercise 150/82 92 9 min exercise 202/80 120 12 min exercise 230/90 METS: 13.7 15 min exercise 18 min exercise POST EXERCISE 1 min 3 min 200/90 6 min 132/82 60 9 min 114/84 78 Stopped at 12:04 min with a heart rate of 151. REASON TO STOP: ACHIEVED MAXIMAL HEART RATE; ABNORMAL BLOOD PRESSURES RESPONSE EKG RESULTS: 1. Maximal symptom limited ECG stress Negative for ischemia. 2. Appropritate heart rate response to exercise. 3. Chest pain: absent 4. Arrhythmia: absent 5. Exercise functional capacity: normal 6. Hypertensive BP response to exercise ( 230/90 with peak exercise). ECHO RESULTS: 1. At rest normal LV systolic function, mild LVH. 2. After peak exercise normal augmentation of all LV segments, suggest no evidence of ischemia. Elizabeth Casas MD, [facility] Procedure Note Yael Fields - 08/10/2008 4:24 PM CST Type of Stress Test: Treadmill stress echocardiogram PATIENT INFORMATION: KYLER LEACH Age: 48 y.o. : 1960 Height/Weight: Ht 1.778 m (5' 10 ) Wt 82.555 kg (182 lb) Sex: male REASON FOR PERFORMING TEST: DYSPNEA; CHEST DISCOMFORT (BURNING) TAPE 08-55 RISK FACTORS: Hypertension: Negative Hyperlipids: Negative Diabetes: Negative Smoking History: History Tobacco Use Quit Quit date: 10/06/2001 Family History: NONE CAD: Negative Previous VA: Negative Post PTCA: Negative Resting EKG: Sinus bradycardia, LVH. Predicted Heart Rate: 100% = 174 85% = 147 EXERCISE BP PULSE SYMPTOMS 110/84 53 Reached 85% () at 11:00 min Standing 3 min exercise 130/90 75 6 min exercise 150/82 92 9 min exercise 202/80 120 12 min exercise 230/90 METS: 13.7 15 min exercise 18 min exercise POST EXERCISE 1 min 3 min 200/90 6 min 132/82 60 9 min 114/84 78 Stopped at 12:04 min with a heart rate of 151. REASON TO STOP: ACHIEVED MAXIMAL HEART RATE; ABNORMAL BLOOD PRESSURESRESPONSE EKG RESULTS: 1. Maximal symptom limited ECG stress Negative for ischemia. 2. Appropritate heart rate response to exercise. 3. Chest pain: absent 4. Arrhythmia: absent 5. Exercise functional capacity: normal 6. Hypertensive BP response to exercise ( 230/90 with peak exercise). ECHO RESULTS: 1. At rest normal LV systolic function, mild LVH. 2. After peak exercise normal augmentation of all LV segments, suggest noevidence of ischemia. Elizabeth Casas MD, [facility] German Monahan Jr., MD ECHO ORDERABLES * RAHEEM W REFLX (POSITIVE) (PO REF LAB) (08/19/2007 4:17 PM BILINGUAL RECEPTIONIST) Pathologist [facility] RAHEEM Direct 33 0 - 99 AU/mL [facility] INSURANCE BILL Comment: Negative <100 Equivocal 100 - 120 Positive >120 08/19/2007 4:17 PM BILINGUAL RECEPTIONIST 08/19/2007 Narrative Resulting Agency Comment [address] [phone] German Monahan Jr., MD LAB - SEROLOGY OR DERABLES [facility] INSURANCE BILL * RHEUMATOID FACTOR BLOOD QUANTITATIVE (08/19/2007 4:17 PM BILINGUAL RECEPTIONIST) Rheumatoid Factor 12.0 0.0 - 13.9 IU/mL [facility] INSURANCE BILL 08/19/2007 4:17 PM BILINGUAL RECEPTIONIST 08/19/2007 Narrative Resulting Agency Comment [facility] [address] [phone] German Monahan Jr., MD LAB - CHEMISTRY O USAMA [facility] INSURANCE BILL * LIPID PROFILE W TCHOL/HDL ([facility]) (06/06/2007 10:03 AM CDT) Cholesterol 129 100 - 199 mg/dL [facility] INSURANCE BILL Triglycerides 88 0 - 149 mg/dL [facility] INSURANCE BILL HDL Cholesterol 40 40 - 59 mg/dL [facility] INSURANCE BILL VLDL Calculated 18 5 - 40 mg/dL [facility] INSURANCE BILL LDL Calculated 71 0 - 99 mg/dL [facility] INSURANCE BILL Cholesterol/HDL Ratio 3.2 0.0 - 5.0 ratio units [facility] INSURANCE BILL 06/06/2007 10:0 3 AM CDT 06/06/2007 Narrative Resulting Agency Comment [facility] [address] [phone] German Monahan Jr., MD LAB - CHEMISTRY O USAMA Performing Organization Address [facility] [place] Co de Phone Number [facility] INSURANCE BILL * TESTOSTERONE FREE (06/06/2007 10:03 AM CDT) Free Testosterone(Di rect) 8.9 6.8 - 21.5 pg/mL [facility] INSURANCE BILL 06/06/2007 10:0 3 AM CDT 06/06/2007 Narrative Resulting Agency Comment [facility] [id number] German Monahan Jr., MD LAB - CHEMISTRY O USAMA [facility] INSURANCE BILL Care Teams Film Touch Up Inspector Relationship Specialty Start Date End Date Shereen Mckeon MD [address] [place] [address] PCP - General Internal Medicine 09/27/21
--- OUTSIDE RECORDS SUMMARY | 2024-11-14 15:16 | XMS_ITS | Encounter Summary ---
Author Organization [facility] Health Address [address] [place] [address] Care Team Providers Care Sanitary Engineer Name Role Phone Taniya tSaton MD, German Lofton Primary Care Provider [phone] Shereen Mckeon MD Primary Care Provider [phone] Encounter Details Date Type Department Care Team (Late st Contact Info) Description 09/18/2018 [facility] Outpatient Visit [facility] Orthopedics - Radiology [address] [place] [address] [place] [address] Document, Scanned Social History Tobacco Use Types [...] < 140/90 Blood Pressure 112/74(2023 9:31 AM PRINTS AND DRAWINGS CURATOR) Camila Hoang Note: Caring for Your High [...] Where can I go for more information? [place] Heart Association National Center: http://www.americanheart.org 1. In the top header, click C onditions . 2. In the top header, click h igh blood pressure. 3. For a printable blood pressure tracker, scroll toward the bottom of the page to Related Tools, and click H BP Trackers. 3-836-YWC-USA-1 or ( ) National Heart, Lung and Blood [place]: http://www.nhlbi.nih.gov/health/infoctr/index.htm documented as of this encounter Visit Diagnoses Not on filedocumented in this encounter Additional Health Concerns Infection Onset Date Last Indicated Resolved Time COVID-19 Under Investigation 06/20/2023 06/20/2023 06/20/2023 9:18 AM CDT documented as of this encounter Care Teams Sanitary Engineer Relationship Specialty Start Date End Date German Monahan Jr., MD [address] [place] [address] PCP - General 05/12/08 09/26/21 Shereen Mckeon MD [address] [place] [address] [address] [place] [id number] PCP - General Internal Medicine 09/27/21 documented as of this encounter
--- OUTSIDE RECORDS SUMMARY | 2024-11-14 15:16 | XMS_ITS | Encounter Summary ---
Author Organization [facility] Health Address [address] [place] [address] Care Team Providers Care Wool Washing Machine Operator Name Role Phone Taniya Staton MD, German Lofton Primary Care Provider [phone] Shereen Mckeon MD Primary Care Provider Encounter Details Date Type Department Care Team (Late st Contact Info) Description 08/18/2018 [facility] Outpatient Visit [facility] Orthopedics - Radiology [address] [place] [address] [place] [address] Document, Scanned Social History Tobacco Use Types [...] < 140/90 Blood Pressure 112/74(2023 9:31 AM OPERATIONS ASST) Camila Hoang Note: Caring for Your High [...] Where can I go for more information? [place] Heart Association National Center: http://www.americanheart.org 1. In the top header, click C onditions . 2. In the top header, click h igh blood pressure. 3. For a printable blood pressure tracker, scroll toward the bottom of the page to Related Tools, and click H BP Trackers. 4-402-KHS-USA-1 or ( ) National Heart, Lung and Blood [place]: http://www.nhlbi.nih.gov/health/infoctr/index.htm documented as of this encounter Visit Diagnoses Not on filedocumented in this encounter Additional Health Concerns Infection Onset Date Last Indicated Resolved Time COVID-19 Under Investigation 06/20/2023 06/20/2023 06/20/2023 9:18 AM CDT documented as of this encounter Care Teams Wool Washing Machine Operator Relationship Specialty Start Date End Date German Monahan Jr., MD [address] [place] [address] PCP - General 05/12/08 09/26/21 Shereen Mckeon MD [address] [place] [address] [address] [place] [phone] PCP - General Internal Medicine 09/27/21 documented as of this encounter
[2024-11-14 15:20] VITALS: BP 131/71; PULSE 60; RESP 16; TEMP 36.5; O2SAT 99
--- OUTSIDE RECORDS SUMMARY | 2024-11-14 15:37 | XMS_ITS | Encounter Summary ---
Author Organization [facility] Health Address [address] [place] [address] Care Team Providers Care Forming Mill Operator Name Role Phone Taniya Staton MD, German Lofton Primary Care Provider [phone] Shereen Mckeon MD Primary Care Provider [phone] Encounter Details Date Type Department Care Team (Late st Contact Info) Description 07/27/2018 [facility] Outpatient Visit [facility] Orthopedics - Radiology [address] [place] [address] [place] [address] Document, Scanned Social History Tobacco Use Types [...] < 140/90 Blood Pressure 112/74(2023 9:31 AM CERTIFIED PROSTHETIST VICE PRESIDENT) Camila Hoang Note: Caring for Your High [...] Where can I go for more information? [place] Heart Association National Center: http://www.americanheart.org 1. In the top header, click C onditions . 2. In the top header, click h igh blood pressure. 3. For a printable blood pressure tracker, scroll toward the bottom of the page to Related Tools, and click H BP Trackers. 6-061-TFH-USA-1 or ( ) National Heart, Lung and Blood [place]: http://www.nhlbi.nih.gov/health/infoctr/index.htm documented as of this encounter Visit Diagnoses Not on filedocumented in this encounter Additional Health Concerns Infection Onset Date Last Indicated Resolved Time COVID-19 Under Investigation 06/20/2023 06/20/2023 06/20/2023 9:18 AM CDT documented as of this encounter Care Teams Forming Mill Operator Relationship Specialty Start Date End Date German Monahan Jr., MD [address] [place] [address] PCP - General 05/12/08 09/26/21 Shereen Mckeon MD [address] [place] [address] [address] [place] [phone] PCP - General Internal Medicine 09/27/21 documented as of this encounter
--- OUTSIDE RECORDS SUMMARY | 2024-11-14 15:37 | XMS_ITS | Encounter Summary ---
Author Organization [facility] Address [address] [place] [address] Care Team Providers Care Noteman Name Role Phone German Monahan MD Primary Care Provider Unavailab le Encounter Details Date Type Department Care Team (Latest Contact Info) Description 09/30/2008 Outpatient Historical [facility] WilfredoJose C gusman MD NO ADDRESS ON FILE Unspecified Essential Hypertension Social History Tobacco Use Types Packs/Day Years Used Date Smoking Tobacco: Never Assessed Comments Unknown Sex and Gender Information Value Date Recorded Sex Assigned at Not on file Legal Sex Male 3:11 AM LOADING SHOVEL OILER Gender Identity Not on file Sexual Orientation Not on file documented as of this encounter Plan of Treatment Not on file documented as of this encounter Procedures Procedure Name Priority Date/Time Associated Diagnosis Comments ECHO COMPLETE Routine 09/30/2008 10:44 AM LOADING SHOVEL OILER documented in this encounter Results * ECHOCARDIOGRAM COMPLETE (09/30/2008 10:44 AM LOADING SHOVEL OILER) Narrative INTERFACE SYSTEM - 09/30/2008 10:44 AM LOADING SHOVEL OILER [address] [address] [email or web address] Echocardiogram Patient: Kyler Leach Study ID: ADULT ECHO FULL Gender: F : 1960 Age: 48 years Race: 1 Room: Bed: Height: 70 in ( 178 cm ) Study Date: September 30, 2008 Patient status: Outpatient Weight: 184.62 lb ( 83.92 kg ) Access. #: [id number] POC: Ordering: Richard Attending MD: Richard Admitting MD: Richard Indications and History: DIAGNOSES SUPPORTING MEDICAL NECESSITY: Hypertension - benign 401.1 Study Conclusions: SUMMARY: - Overall left ventricular systolic function was normal. There was no diagnostic evidence of left ventricular regional wall motion abnormalities. Left ventricular ejection fraction was 64 % by biplane method of discs. - The left atrium was mildly dilated. - Right ventricular size was normal. Right ventricular systolic function was normal. - There was moderate pulmonic regurgitation. Cardiac anatomy: LEFT VENTRICLE: Left ventricular size was normal. Overall left ventricular systolic function was normal. There was no diagnostic evidence of left ventricular regional wall motion abnormalities. Left ventricular wall thickness was normal. AORTIC VALVE: The aortic valve was probably trileaflet. There was normal aortic valve leaflet excursion. Doppler interpretation(s): Transaortic velocity was within the normal range. There was no evidence for aortic valve stenosis. There was no significant aortic valvular regurgitation. AORTA: The aortic root was normal in size. MITRAL VALVE: Mitral valve structure was normal. There was normal mitral valve leaflet excursion. Doppler interpretation(s): There was no significant mitral valvular regurgitation. LEFT ATRIUM: The left atrium was mildly dilated. RIGHT VENTRICLE: Right ventricular size was normal. Right ventricular systolic function was normal. PULMONIC VALVE: The pulmonic valve was not well visualized. Doppler interpretation(s): There was moderate pulmonic regurgitation. TRICUSPID VALVE: The tricuspid valve structure was normal. Tricuspid leaflet excursion was normal. Doppler interpretation(s): There was no significant tricuspid valvular regurgitation. RIGHT ATRIUM: Right atrial size was normal. PERICARDIUM: There was no pericardial effusion. Measurement tables: 2D measurements LEFT VENTRICLE NORMAL Biplane method of disks LV vol ed 118 cc -- LV vol es 43 cc -- Stroke volume 75 cc -- LV EF 64 % -- LV vol index ed 58 cc/m^2 -- LV vol index es 21 cc/m^2 -- M-mode measurements LEFT VENTRICLE NORMAL LVID ed 54 mm -- LVID es 32 mm -- IVS ed 9 mm -- LVPWT ed 10 mm -- AORTA NORMAL AoD (root) 30 mm -- LEFT ATRIUM NORMAL LAD 41 mm -- Doppler measurements LVOT, AV, AORTA NORMAL LVOT max velocity 130 cm/sec -- Peak AV velocity 150 cm/sec -- Peak AV gradient 9 mmHg -- MITRAL VALVE NORMAL Peak E velocity 72 cm/sec -- Peak A velocity 55 cm/sec -- MV peak E/A 1.31 -- MV deceleration time 219 msec -- Peak gradient 2 mmHg -- Prepared and Electronically Authenticated Jesús Montelongo MD Confirmed September 30, 2008 10:20:35 Procedure Note Provider, Historical - 09/30/2008 [id number] [place], [place] [address]Lhmgi: [email or web address] [email or web address] Patient: Kyler Leach Study ID: ADULT ECHO FULL Gender: F : 1960 Age: 48 years Race: 1 Room: Bed: Height: 70 in ( 178 cm ) Study Date: September 30, 2008 Patient status: Outpatient Weight: 184.62 lb ( 83.92 kg ) Access. #: [id number] POC: Ordering: Richard Attending MD: Richard Admitting MD: Richard Indications and History: DIAGNOSES SUPPORTING MEDICAL NECESSITY: Hypertension - benign 401.1 Study Conclusions: SUMMARY: - Overall left ventricular systolic function was normal. There was no diagnostic evidence of left ventricular regional wall motion abnormalities. Left ventricular ejection fraction was 64 % by biplane method of discs. - The left atrium was mildly dilated. - Right ventricular size was normal. Right ventricular systolicfunction was normal. - There was moderate pulmonic regurgitation. Cardiac anatomy: LEFT VENTRICLE: Left ventricular size was normal. Overall left ventricular systolic function was normal. There was no diagnostic evidence of leftventricular regional wall motion abnormalities. Left ventricular wall thickness was normal. AORTIC VALVE: The aortic valve was probably trileaflet. There was normal aortic valve leaflet excursion. Doppler interpretation(s): Transaortic velocity was within the normal range. There was no evidence for aortic valvestenosis. There was no significant aortic valvular regurgitation. AORTA: The aortic root was normal in size. MITRAL VALVE: Mitral valve structure was normal. There was normal mitral valve leaflet excursion. Doppler interpretation(s): There was no significant mitral valvular regurgitation. LEFT ATRIUM: The left atrium was mildly dilated. RIGHT VENTRICLE: Right ventricular size was normal. Right ventricular systolic functionwas normal. PULMONIC VALVE: The pulmonic valve was not well visualized. Doppler interpretation(s): There was moderate pulmonic regurgitation. TRICUSPID VALVE: The tricuspid valve structure was normal. Tricuspid leaflet excursionwas normal. Doppler interpretation(s): There was no significant tricuspid valvular regurgitation. RIGHT ATRIUM: Right atrial size was normal. PERICARDIUM: There was no pericardial effusion. Measurement tables: 2D measurements LEFT VENTRICLE NORMAL Biplane method of disks LV vol ed 118 cc -- LV vol es 43 cc -- Stroke volume 75 cc -- LV EF 64 % -- LV vol index ed 58 cc/m^2 -- LV vol index es 21 cc/m^2 -- M-mode measurements LEFT VENTRICLE NORMAL LVID ed 54 mm -- LVID es 32 mm -- IVS ed 9 mm -- LVPWT ed 10 mm -- AORTA NORMAL AoD (root) 30 mm -- LEFT ATRIUM NORMAL LAD 41 mm -- Doppler measurements LVOT, AV, AORTA NORMAL LVOT max velocity 130 cm/sec -- Peak AV velocity 150 cm/sec -- Peak AV gradient 9 mmHg -- MITRAL VALVE NORMAL Peak E velocity 72 cm/sec -- Peak A velocity 55 cm/sec -- MV peak E/A 1.31 -- MV deceleration time 219 msec -- Peak gradient 2 mmHg -- Prepared and Electronically Authenticated Jesús Montelongo MD Confirmed September 30, 2008 10:20:35 Jose C Villalobos MD ORDERABLES Final Result INTERFACE SYSTEM Refer to clinic/hospital department documented in this encounter Visit Diagnoses Diagnosis Unspecified essential hypertension documented in this encounter Care Teams Noteman Relationship Specialty Start Date End Date German Monahan MD PCP - General 08/24/08 documented as of this encounter
--- OUTSIDE RECORDS SUMMARY | 2024-11-14 15:37 | XMS_ITS | Clinical Summary ---
Author Organization [facility] Address [address] [place] [address] Phone Care Team Providers Care Language Translator Name Role Phone German Monahan MD Primary Care Provider Unavailab le Allergies Active Allergy Reactions Criticality Noted Date Comments Ciprofibrate Hives High 09/30/2008 Ciprofloxacin Hives High 01/13/2011 Unclassified Drug Unknown 01/13/2011 Unknown arthritis rx Medications PROBENECID 500 mg Oral Tab Take 500 mg by mouth daily. Active NITROFURANTOIN 50 mg Oral Cap Take by mouth daily. Active LORAZEPAM 1 mg Oral Tab Take 1 mg by mouth daily. Active OMEGA-3 FATTY ACIDS 1,000 mg Oral Cap Take by mouth daily. 2,000 mg daily Active MULTI-VITAMIN PO Take by mouth. Activ e ALPRAZolam (XANAX) 0.25 mg Oral tablet Take 0.25 mg by mouth nightly as needed. Active Glucosam-Chond- Hrb 149-Hyal Ac (GLUCOS CHOND CPLX ADVANCED) 750-100-125 mg Oral Tab Take by mouth. Activ e trimethoprim-po lymyxin B (POLYTRIM) 0.1-10,000 %-unit/mL OP solutionIndicat ions:Corneal abrasion, left Administer 1 Drop in left eye every 4 hours. 1 Bottle 0 1 Active lisinopril (PRINIVIL) 20 mg Oral tablet Take 1 Tab by mouth daily. 90 Tab 0 1 Active Active Problems Problem Noted Date Diagnosed Date Abnormal cardiovascular stress test 07/18/2010 Chest pain, unspecified 07/18/2010 HTN (hypertension) 09/30/2008 Immunizations Immunization Administration Dates Next Due Influenza Seasonal Unspecified Formulation IM Pneumococcal conjugate, unspecified formulation 07/19/2009 Family History Medical History Relation Name Comments Heart Disease Mother Relation Name Status Comments Father Alive Mother Alive Social History Tobacco Use Types Packs/Day Years Used Date Smoking Tobacco: Former Pipe Q uit: 09/30/2000 Smokeless Tobacco: Never Alcohol Use Standard Drinks/Week Comments No 0 (1 standard drink = 0.6 oz pur e alcohol) Comments No Sex and Gender Information Value Date Recorded Sex Assigned at Not on file Legal 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 Gender Identity Not on file Sexual Orientation Not on file Last Filed Vital Signs Vital Sign Reading Time Taken Comments Blood Pressure 114/74 01/13/2011 12:06 PM CDT Pulse 47 01/13/2011 12:06 PM CDT Temperature 36.1 C (97 F) 01/13/2011 12:06 PM CDT Respiratory Rate 16 01/13/2011 12:06 PM CDT Oxygen Saturation 97% 07/19/2010 1:05 PM CDT Inhaled Oxygen Concentration - - Weight 87.1 kg (192 lb) 01/13/2011 12:06 PM CDT Height 177.8 cm (5' 10 ) 01/13/2011 12:06 PM CDT Body Mass Index 27.55 01/13/2011 12:06 PM CDT Plan of Treatment Health Maintenance Due Date Last Done Comments CERVICAL CANCER SCREENING 1992 BREAST CANCER SCREENING 2002 FIT-DNA Q 3 years 2007 FIT/FOBT Q 1 year 2007 Flex Sig/CT Colonography Q 5 years 2007 INFLUENZA VACCINE (#1) 2024 0, 07/19/2009 COLORECTAL SCREENING 07/07/2027 07/07/2017 Colorectal Cancer Screening 07/07/2027 DTAP/TDAP/TD VACCINES (2 - T d or Tdap) 08/10/2028 08/10/2018 RSV VACCINE (60+ or ) (1 - 1-dose 75+ series) 2037 PNEUMOCOCCAL VACCINE 0-64 YEARS Aged Out 07/19/2009 No longer eligible b ased on patient's age to complete this topic ZOSTER VACCINE Completed 09/17/2020, 06/21/2020 Insurance [facility] BLUE ACCESS CHOICE Advance Directives For more information, please contact: [phone] * Full Code (Latest Code Status on File) Date Activated Date Inactivated Comments 07/19/2010 10:34 AM 07/19/2010 5:14 PM Care Teams Language Translator Relationship Specialty Start Date End Date German Monahan MD PCP - General 08/24/08
--- OUTSIDE RECORDS SUMMARY | 2024-11-14 15:37 | XMS_ITS | Patient Health Record ---
Author Organization [facility] Address [address] [facility] [address] [place], [place] [id number] Care Team Providers Care Food Beverage Manager Name Role Phone ROSCOE LIU Primary Care Provider Marvin Purdy Unavailable [phone] MACIEJ HEBERT, NINO Lofton Unavailable Unavailable Sue Reynolds Unavailable [phone] RESULTS Component Value Reference Range Notes Uric Acid, Serum Reviewed date:09/18/2024 06:25:56 PM Interpretation: Performing Lab:[facility], [address] [facility], Phone - [phone], Director - [facility] Notes/Report: Uric Acid 8.3 3.8-8.4 mg/dL Therapeutic ta rget for gout patients: <6.0 CBC With Differential/Platel et Reviewed date:09/18/2024 06:25:56 PM Interpretation: Performing Lab:[facility], [address] [facility], Phone - [phone], Director - [facility] Notes/Report: WBC 7.4 3.4-10.8 x10E3/uL RBC 4.66 [...] Westergren Reviewed date:09/18/2024 06:25:56 PM Interpretation: Performing Lab:[facility], Phone - [phone], Director - [facility] Notes/Report: Sedimentation Rate-[facility] 5 0-30 mm/hr Rheumatoid Arthritis Factor Reviewed date:09/18/2024 06:25:56 PM Interpretation: Performing Lab:[facility], Phone - [phone], Director - [facility] Notes/Report: Rheumatoid Factor (RF) 10.5 <14.0 IU/mL C-Reactive Protein, Quant Reviewed date:09/18/2024 06:25:56 PM Interpretation: Performing Lab:[facility], Phone - [phone], Director - [facility] Notes/Report: C-Reactive Protein, Quant 4 0-10 mg/L CCP IgG Antibodies Reviewed date:09/18/2024 06:25:56 PM Interpretation: Performing Lab:[facility], Phone - [phone], Director - [facility] Notes/Report: Anti-CCP Ab, IgG/IgA 2 0-19 units Negative <20 Weak positive 20 - 39 Moderate positive 40 - 59 Strong positive >59 Comp. Metabolic Panel (14) Reviewed date:09/26/2024 10:11:21 PM Interpretation: Performing Lab:[facility], Phone - [phone], Director - [facility] Notes/Report: Glucose 87 70-99 mg/dL BUN 15 [...] 0-40 IU/L ALT (SGPT) 43 0-44 IU/L AST Reviewed date:2024 11:35:53 AM Interpretation: Performing Lab:[facility]890[facility] Rosalino Chow, [id number] Derek Silverman MD Notes/Report: NON-FASTING; NON-FASTING FASTING:YES FASTING: YES AST 27 10-35 U/L ALT Reviewed date:10/29/2024 11:35:53 AM Interpretation: Performing Lab:[facility] Rosalino Chow, [id number] Derek Silverman MD Notes/Report: NON-FASTING; NON-FASTING FASTING:YES FASTING: YES ALT 22 9-46 U/L REASON FOR REFERRAL No Information MEDICATIONS Medication SIG (Take, Route, Fr equency, [...] 1 cap(s) orally once a day Active SOCIAL HISTORY Sex Assigned At : Social History Observation Description Sex Assigned At Unknown PROBLEMS Problem Type ICD Code Onset Dates Problem Status W/U Status Risk SNOMED Code Notes Problem GOUT (274.9) Active confirmed Gout (905 02420) Problem MONITOR MED (V58.69) Active confirmed Long-term drug therapy (464271003) Problem JOINT PAIN-MULT JTS (719.49) Active confirmed Multiple joint pain (90534951) Problem Myalgia (729.1) Active confirmed Myalgi a (54482558) Problem Low back pain (724.2) Active confirmed Low back pain (622910799) Problem Rash (782.1) Active confirmed Rash (820988520) Problem Former smoker (Z87.891) Active confirmed 6701869 Problem Idiopathic gout, unspecified chronicity, unspecified site (M10.00) Active confirmed 06553567 Problem Knee pain, acute (M25.569) Active confirmed 32645357 Problem Other mcfp (current) drug therapy (Z79.899) Active confirmed 308407273 Problem Non-smoker (Z78.9) Active confirmed 1000600 Problem Primary generalized (osteo)arthritis (M15.0) Active confirmed 460289406 Problem Essential (primary) hypertension (I10) Active confirmed Essential hypertension (01302127) Problem Gout, unspecified (M10.9) Active confirmed Gout (02357950) Problem Polyarthritis (M13.0) Active confirmed 74242670 VITAL SIGNS Heart Rate 58 /min 09/17/2024 Blood pressure diastolic 65 mm Hg 09/17/2024 Height 70 in 09/17/2024 Blood pressure systolic 116 mm Hg 09/17/2024 Weight 196 lbs 09/17/2024 BMI 28.12 kg/m2 09/17/2024 Encounters Encounter Location Date Provider Diagnosis [facility] [address] [place], [place] [phone] 09/17/2024 Sue Reynolds Idiopathic gout, unspecified chronicity, unspecified site M10.00 ; Primary generalized (osteo)arthritis M15.0 ; Other termite control technician (current) drug therapy Z79.899 ; Polyarthritis M13.0 ; Pain in right hip M25.551 ; Pain in left hip M25.552 ; Pain, joint, knee, left M25.562 and Essential (primary) hypertension I10 [facility] [address] [facility], [address] [place], [place] [phone] 11/18/2023 Marvin Rose [facility] [address] [facility], [address] [phone] 03/03/2024 Marvin Rose [facility] [address] [facility], [address] [phone] 09/09/2024 Marvin Rose [facility] [address] [facility], [address] [phone] 09/17/2024 Marvin Rose Idiopathic gout, unspecified chronicity, unspecified site M10.00 [facility] [address] [phone] 09/26/2024 Marvin Rose Elevated LFTs R79.89 ASSESSMENTS Encounter Date Diagnosis Assessment Notes Treatment Notes Treatment Clinical Notes 09/17/2024 Primary generalized (osteo)arthritis (ICD-10 - M15.0) 09/17/2024 Idiopathic gout, unspecified chronicity, unspecified site (ICD-10 - M10.00) 09/17/2024 Idiopathic gout, unspecified chronicity, unspecified site (ICD-10 - M10.00) 09/26/2024 Elevated LFTs (ICD-1 0 - R79.89) 09/17/2024 Other mcfp (current) drug therapy (ICD-10 - Z79.899) 09/17/2024 Polyarthritis (ICD-1 0 - M13.0) 09/17/2024 Pain in right hip (ICD-10 - M25.551) 09/17/2024 Pain in left hip (ICD-10 - M25.552) 09/17/2024 Pain, joint, knee, left (ICD-10 - M25.562) 09/17/2024 Essential (primary) hypertension (ICD-10 - I10) PLAN OF TREATMENT Pending Test Test Name Order Date Uric Acid, Serum 03/11/2022 Creatinine, Serum 03/11/2022 Sed Rate - Westergren 03/11/2022 C-Reactive Protein, Quant 03/11/2022 Joint Injection - knee, left 08/09/2021 Creatinine (IH) 08/09/2021 Uric Acid (IH) 08/09/2021 X ray : Knee, right 3 views 07/23/2016 X ray : Knee, left, 3 views- outside ord er 02/19/2019 X ray : Hip, left- outside order 019 X ray : Hip, left- outside order 021 X ray : Hip, right- outside order 2018 X ray : Hip, right- outside order 2020 -Xray slip given 01/29/2019 -Xray slip given 02/08/2021 -Xray slip given 02/19/2019 URIC ACID 12/02/2019 Future Test Test Name Order Date Uric Acid, Serum 10/30/2018 Lab slip given 10/30/2018 AST (SGOT) 10/18/2024 ALT (SGPT) 10/18/2024 Next Appt Details Provider Name:Sue Reynolds, 02/16/2025 11:50:00 AM, [address] [facility] [address], [place], [place], [phone], Insurance Providers Payer Name Payer Address Payer Phone Subscriber Number Group Number Insured Name Patient Relationship to Insured Coverage Start Date Coverage End Date [facility] [address] [place] [address] [id number] Kyler Leach Self - patient is the insured 6 MEDICAL (GENERAL) HISTORY Medical History History ICD Code Tension headaches depression migraine headache loss of hearing chest pain high blood pressure anxiety bronchitis Torn left knee meniscus Surgical History Surgery Date(Month/Year) shoulder surgery, left 09/2018 foot surgery/right 2009 carpal tunnel release 2006 right ACL 2010
--- OUTSIDE RECORDS SUMMARY | 2024-11-14 15:37 | XMS_ITS | Encounter Summary ---
Author Organization [facility] Health Address [address] [place] [address] Care Team Providers Care Director Meetings Name Role Phone Taniya Staton MD, German Lofton Primary Care Provider [phone] Shereen Mckeon MD Primary Care Provider [phone] Encounter Details Date Type Department Care Team (Late st Contact Info) Description 09/18/2018 [facility] Outpatient Visit [facility] Orthopedics - Radiology [address] [place] [address] [place] [address] Document, Scanned Social History Tobacco Use Types [...] < 140/90 Blood Pressure 112/74(2023 9:31 AM WELL SHOOTER) Camila Hoang Note: Caring for Your High [...] Where can I go for more information? [place] Heart Association National Center: http://www.americanheart.org 1. In the top header, click C onditions . 2. In the top header, click h igh blood pressure. 3. For a printable blood pressure tracker, scroll toward the bottom of the page to Related Tools, and click H BP Trackers. 5-984-BIX-USA-1 or ( ) National Heart, Lung and Blood [place]: http://www.nhlbi.nih.gov/health/infoctr/index.htm documented as of this encounter Visit Diagnoses Not on filedocumented in this encounter Additional Health Concerns Infection Onset Date Last Indicated Resolved Time COVID-19 Under Investigation 06/20/2023 06/20/2023 06/20/2023 9:18 AM CDT documented as of this encounter Care Teams Director Meetings Relationship Specialty Start Date End Date German Monahan Jr., MD [address] [place] [address] PCP - General 05/12/08 09/26/21 Shereen Mckeon MD [address] [place] [address] [address] [place] [phone] PCP - General Internal Medicine 09/27/21 documented as of this encounter
--- OUTSIDE RECORDS SUMMARY | 2024-11-14 15:37 | XMS_ITS | Clinical Summary ---
Author Organization [facility] [employer] Address [address] [place] [address] Care Team Providers Care Plant Breeder Scientist Name Role Phone Shereen Mckeon MD Primary Care Provider [phone] Source Comments [facility] Affiliates and Associated Physician Practices is amultiple site organization consisting of ambulatory clinics and hospital sitesin [place], [place], [place] and [place]. This disclosure is being madepursuant to the Care Everywhere program and may not contain all information available regarding this patient. Last updated 18.[facility] [employer] Allergies Active Allergy Reactions Criticality Noted Date Comments Bactrim 05/12/2008 Ciprofloxacin Hydrochloride Rash Low 05/12/20 08 hives Sulindac Nausea 08/04/2008 Paroxetine Other 07/17/2010 insomnia Medications * Be aware that medications may not be up to date on this document. Alwaysverify current medications with the patient. Medication Sig Dispensed Refills Start Date End Date Status Elizabeth-3 Fatty Acids (FISH OIL PO) Active Multiple [...] arthroscopy 09/06/2008 Overview (09/06/2008): Dex knees Poss. [place]ia schluters Essential hypertension, benign 08/16/2008 Overview (12/12/2022): lisinopril decrease K / amlodipine started Insomnia Other testicular hypofunction Resolved Problems Problem Noted Date Diagnosed Date Resolved Date Gouty arthropathy 08/12/2008 12/10/2010 Encounters Date Type Department Care Team Description 11/05/2024 Orders Only [facility] - Internal Medicine [address] [place] [phone] Marcella Marquez APRN-CNP 10/04/2024 11:46 AM [facility] - 10/04/2024 11:59 PM [facility] Hospital Encounter [facility] Imaging Services - CT Scan [address] [place] [address] Marcella Marquez APRN-CNP Discharge Disposition: Home or Self Care 10/04/2024 9:45 AM [facility] Office Visit [facility] Internal Medicine [address] [place] [phone] Marcella Marquez APRN-CNP Annual physical exam (Primary Dx); LLQ pain; Screening PSA (prostate specific antigen); Essential hypertension 10/04/2024 Travel 09/27/2024 1:30 PM [facility] Procedure visit [facility] Urology [address], [address] [place] [address] Kendall Greene MD Peyronie's disease 09/27/2024 Travel 09/20/2024 3:15 PM [facility] Office Visit [facility] Orthopedics [address] [place] [address] Ar Arreaga, SAMUEL Glenohumeral arthritis, left (Primary Dx) 09/20/2024 Travel 09/17/2024 Refill [facility] Internal Medicine [address] [place] [phone] Shereen Mckeon MD Med Change Request 09/15/2024 Refill [facility] Internal Medicine [address] [place] [phone] Shereen Mckeon MD Med Change Request 09/13/2024 1:30 PM [facility] Procedure visit [facility] Urology [address] [place] [address] Kendall Greene MD Peyronie's disease 09/13/2024 Travel 08/30/2024 1:30 PM [facility] Procedure visit [facility] - Urology [address] , [address] [place] [phone] Kendall Greene MD Peyronie's disease 08/30/2024 Travel 08/23/2024 3:20 PM [facility] Office Visit [facility] Internal Medicine [address] [place] [address] [address] [place] [phone] Verenice Dickens, MULTI OPERATION FORMING MACHINE SETTER-FOLDING MACHINE TENDER Current moderate episode of major depressive disorder, unspecified whether recurrent (HCC) (Primary Dx); Marijuana smoker, episodic; Insomnia, unspecified type 08/23/2024 Travel 08/19/2024 Telephone [facility] Internal Medicine [address] [place] [phone] Shereen Mckeon MD INSOMNIA 08/16/2024 1:30 PM [facility] Procedure visit [facility] - Urology [address] , [address] [place] [phone] Kendall Greene MD Peyronie's disease 08/16/2024 Travel 08/15/2024 Refill [facility] Internal Medicine [address] [place] [phone] Shereen Mckeon MD Refill Request from Last [...] Comments Blood Pressure 112/74 10/04/2024 9:31 AM [facility] Pulse 56 10/04/2024 9:31 AM [facility] Temperature 36.4 C (97.5 F) 10/04/2024 9:31 AM [facility] Respiratory Rate 16 10/03/2023 1:32 PM [facility] Oxygen Saturation 98% 10/04/2024 9:31 AM [facility] Inhaled Oxygen Concentration - - Weight 88.9 kg (196 lb) 10/04/2024 9:31 AM [facility] Height 177.8 cm (5' 10 ) 06/14/2024 [...] < 140/90 Blood Pressure 112/74(2023 9:31 AM [facility]) Camila Hoang Note: Caring for Your High [...] Where can I go for more information? [place] Heart Association National Center: http://www.americanheart.org 1. In the top header, click C onditions . 2. In the top header, click h igh blood pressure. 3. For a printable blood pressure tracker, scroll toward the bottom of the page to Related Tools, and click H BP Trackers. 8-440-XRW-USA-1 or ( ) National Heart, Lung and Blood [place]: http://www.nhlbi.nih.gov/health/infoctr/index.htm Medical Devices Implanted Type Area Grievance Manager Device Identifier Shelf Expiration Date Model / Serial / Lot Endo Sabine Articulating Reload Implanted:Qty: 1 on 05/27/2013 at [facility] 12/04/2017 [id number] / / [id number] Description:60 mm Endo Sabine Reload 60mm Implanted:Qty: 2 on 05/27/2013 at [facility] 03/06/2018 [id number] / / [id number] Endo Sabine Articulating Reload, 60mm Implanted:Qty: 1 on 05/27/2013 at [facility] 04/05/2018 [id number] / / [id number] Autosuture Dst Series 28 Xl Eea Implanted:Qty: 1 on 05/27/2013 at [facility] 12/04/2016 [id number] / / [id number] [place] Sut Pushlock 2.9mm Bcmps 12.5mm Implanted:Qty: 1 on 09/17/2018 by Jayjay Prieto MD at [facility] Left: Shoulder [employer] 03/05/2020 [id number] / / [id number] [place] Sut Pushlock 2.9mm Bcmps 12.5mm Implanted:Qty: 2 on 09/17/2018 by Jayjay Prieto MD at [facility] Left: Shoulder [employer] 06/05/2020 [id number] / / [id number] [place] Sut Fibertak Suturetape 1.3mm Implanted:Qty: 1 on 09/17/2018 by Jayjay Prieto MD at [facility] Left: Shoulder [employer] 01/03/2023 [id number]-[id number] / / [id number] [place] Sut Pushlock 2.9mm Bcmps 12.5mm Implanted:Qty: 1 on 09/17/2018 by Jayjay Prieto MD at [facility] Left: Shoulder [employer] 05/05/2020 [id number] / / [id number] [place] Sut Pushlock 2.9mm Bcmps Roland Implanted:Qty: 1 on 09/17/2018 by Jayjay Prieto MD at [facility] Left: Shoulder [employer] 02/03/2020 [id number]-[id number] / / [id number] Procedures Procedure Name Priority Date/Time Associated Diagnosis Comments PROSTATE SPECIFIC ANTIGEN SCREEN 11/05/2024 6:59 AM [facility] CBC W AUTO DIFFERENTIAL 11/05/2024 6:59 AM [facility] COMPREHENSIVE METABOLIC PANEL 11/05/2024 6:59 AM [facility] LIPID PROFILE 11/05/2024 6:59 AM [facility] ISTAT CREATININE Routine 10/04/2024 1:[address] ABDOMEN PELVIS W CONTRAST Routine 10/04/2024 1:45 PM [facility] LLQ pain TOXASSURE SELECT Routine 08/23/2024 3:56 PM [facility] Current moderate episode of major depressive disorder, unspecified whether recurrent (HCC) Marijuana smoker, episodic ENDOSCOPY, COLON, SCREENING Routine 12/17/2021 History of adenomatous polyp of colon - multiple polyps, large polyps, serrated adenoma Serrated polyp of colon Family history of colonic polyps HEPATITIS C ANTIBODY W RFLX PCR Routine 10/22/2018 9:26 AM [facility] Routine general medical examination at a health care facility from Last 3 Months or Most Recently Relevant to Health Maintenance Results * CBC WITH DIFFERENTIAL (11/05/2024 6:59 AM [facility]) White Blood Cell Count 8.2 3.8 - [...] 0.5 % [facility] Comment: Test Performed at: [facility] [place] [address] BRIGIDO SHELTON MD 11/05/2024 6:59 AM [facility] 11/05/2024 7:01 AM [facility] Marcella Marquez MULTI OPERATION FORMING MACHINE SETTER-FOLDING MACHINE TENDER LAB - SOL TOLOGY ORDERABLES [facility] [address] [place] [address] * COMPREHENSIVE METABOLIC PANEL (11/05/2024 6:59 AM [facility]) Glucose 95 65 - 99 mg/dL [facility] [...] 46 U/L [facility] Comment: Test Performed at: [facility] [address] [facility] [place] [address] BRIGIDO SHELTON MD 11/05/2024 6:59 AM [facility] 11/05/2024 7:01 AM [facility] Marcella Marquez MULTI OPERATION FORMING MACHINE SETTERHappy Days - A New Musical LAB - CHEM ISTRY ORDERABLES Performing Organization Address [facility] de Phone Number [place] [phone] * PROSTATE SPECIFIC ANTIGEN SCREEN (11/05/2024 6:59 AM [facility]) PSA 0.75 < OR = 4.00 ng/mL [facility] Comment: The total PSA value from this assay system is standardized against the WHO standard. The test result will be approximately 20% lower when compared to the equimolar-standardized total PSA (Aniyah Colcord). Comparison of serial PSA results should be interpreted with this fact in mind. This test was performed using the Siemens chemiluminescent method. Values obtained from different assay methods cannot be used interchangeably. PSA levels, regardless of value, should not be interpreted as absolute evidence of the presence or absence of disease. Test Performed at: [facility] [address] [place] [address] BRIGIDO SHELTON MD 11/05/2024 6:59 AM [facility] 11/05/2024 7:01 AM [facility] Marcella Marquez MULTI OPERATION FORMING MACHINE SETTERTriplePulseFOLDING MACHINE TENDER LAB - CHEM ISTRY ORDERABLES Performing Organization Address [facility] Phone Number [place] [phone] [place] [address] * LIPID PROFILE (11/05/2024 6:59 AM [facility]) Cholesterol 160 <200 mg/dL [facility] HDL Cholesterol [...] LDL-C. German MCDERMOTT et al. FAUZIA. 2013;310(19): 7109-9294 (http://education.[employer]/faq/KQH699) CHOL/HDLC RATIO 3.0 <5.0 (calc) [facility] Non HDL Cholesterol 107 <130 mg/dL (calc) [facility] Comment: For patients with diabetes plus 1 major ASCVD risk factor, treating to a non-HDL-C goal of <100 mg/dL (LDL-C of <70 mg/dL) is considered a therapeutic option. Test Performed at: [facility] [address] [facility] [place] [address] BRIGIDO SHELTON MD 11/05/2024 6:59 AM [facility] 11/05/2024 7:01 AM [facility] Marcella Marquez APRN-FOLDING MACHINE TENDER LAB - CHEM ISTRY ORDERABLES [facility] [address] [place] [address] * ISTAT CREATININE (10/04/2024 1:59 PM [facility]) Sample iSTAT GRICELDA 10/04/2024 2:01 PM [facility] Creatinine POCT 0.8 0.5 - 1.3 mgdL 10/04/2024 2:01 PM [facility] Blood BLOOD SPECIMEN / Unknown 10/04/2024 1:59 PM [facility] 10/04/2024 2:01 PM [facility] Marcella Marquez APRN-FOLDING MACHINE TENDER LAB - POIN T OF CARE ORDERABLES [facility] [address] * CT Abdomen Pelvis W Contrast (10/04/2024 1:45 PM [facility]) Anatomical Region Laterality Modality Abdomen, Pelvis Computed Tomogra phy 10/04/2024 2:24 PM [facility] Impressions 10/04/2024 2:29 PM [facility] IMPRESSION: 1. Inflammatory change adjacent to the [...] 10/04/2024 2:29 PM Narrative 10/04/2024 2:29 PM [facility] PROCEDURE: CT ABDOMEN PELVIS W CONTRAST DATE/TIME [...] MD on 10/04/2024 2:29 PM Marcella Marquez MULTI OPERATION FORMING MACHINE SETTER-FOLDING MACHINE TENDER CT ORDERAB LES * TOXASSURE SELECT URINE (08/23/2024 3:56 PM [facility]) Summary FINAL [facility] INSURANCE BILL Comment: TOXASSURE SELECT 13 (MW) Test Result Flag Units NO DRUGS DETECTED. Test Result Flag Units Ref Range Creatinine 29 mg/dL >=20 Declared Medications: Medication list was not provided. For clinical consultation, please call . URINE SPECIMEN OBTAINED BY CLEAN CATCH PROCEDURE / Unknown 08/23/2024 3:56 PM [facility] 08/23/2024 Narrative [facility] INSURANCE BILL - 08/29/2024 3:07 PM [facility] Performed at: 01 - [employer] [employer] [address] [place] [id number] Mower Operator: Mayelin Kathleen [place], Phone: [phone] Specimen Comment: [facility], [facility] FLEX or MAT drug testing: Specimen Comment: -Technical component - Data analysis performed at Specimen Comment: [address], [place] [address]. Verenice Dickens APRN-FOLDING MACHINE TENDER LAB - URINE CHEMISTRY ORDERABLES Performing Organization Address [facility] Co de Phone Number [facility] INSURANCE BILL [address] [place] [address] * ENDOSCOPY, COLON, SCREENING (12/17/2021) Angel Coyle MD GI PROCEDURE ORDERAB LES Performing Organization Address [facility] Co de Phone Number [facility] RESULT SCAN * HEPATITIS C ANTIBODY W RFLX PCR (10/22/2018 9:26 AM [facility]) Hepatitis C Antibody 0.1 0.0 - 0.9 s/co ratio [facility] ACCOUNT BILL Blood BLOOD SPECIMEN / Unknown 10/22/2018 9:26 AM [facility] 10/22/2018 Narrative Resulting Agency Comment [facility] [address] [facility] [phone] German Monahan Jr., MD LAB - CHEMISTRY O RDERABLES [facility] ACCOUNT BILL [address] [place] [address] from Last 3 Months or Most Recently Relevant to Health Maintenance Advance Directives Documents on File Type Date Recorded Patient Forensics Analyst Expl anation Adv Directive/Living Will/POA 06/02/2013 7:12 PM * FULL RESUSCITATION (Latest Code Status on File) Date Activated Date Inactivated Comments 05/27/2013 4:48 PM 06/01/2013 12:04 PM Care Teams Plant Breeder Scientist Relationship Specialty Start Date End Date Shereen Mckeon MD [address] [place] [address] PCP - General Internal Medicine 09/27/21
--- OUTSIDE RECORDS SUMMARY | 2024-11-14 15:37 | XMS_ITS | Encounter Summary ---
Author Organization [facility] Health Address [address] [place] [address] Care Team Providers Care Bakery Demonstrator Name Role Phone Taniya Staton MD, German Lofton Primary Care Provider [phone] Shereen Mckeon MD Primary Care Provider [phone] Encounter Details Date Type Department Care Team (Late st Contact Info) Description 08/18/2018 [facility] Outpatient Visit [facility] - Radiology [address] [place] [address] [place] [address] Document, Scanned Social History Tobacco Use Types [...] < 140/90 Blood Pressure 112/74(2023 9:31 AM HEAD BAGGAGE PORTER) Camila Hoang Note: Caring for Your High [...] Where can I go for more information? [place] [employer] National Center: http://www.americanheart.org 1. In the top header, click C onditions . 2. In the top header, click h igh blood pressure. 3. For a printable blood pressure tracker, scroll toward the bottom of the page to Related Tools, and click H BP Trackers. 5-038-VUB-[place]-1 or ( ) National Heart, Lung and Blood [place]: http://www.nhlbi.nih.gov/health/infoctr/index.htm documented as of this encounter Visit Diagnoses Not on filedocumented in this encounter Additional Health Concerns Infection Onset Date Last Indicated Resolved Time COVID-19 Under Investigation 06/20/2023 06/20/2023 06/20/2023 9:18 AM CDT documented as of this encounter Care Teams Bakery Demonstrator Relationship Specialty Start Date End Date German Monahan Jr., MD [address] [place] [address] PCP - General 05/12/08 09/26/21 Shereen Mckeon MD [address] [place] [address] [address] [place] [id number] PCP - General Internal Medicine 09/27/21 documented as of this encounter
--- OUTSIDE RECORDS SUMMARY | 2024-11-14 15:37 | XMS_ITS | Encounter Summary ---
Author Organization [facility] Health Address [address] 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 [place] [employer] National Center: http://www.americanheart.org 1. In the top header, click C onditions . 2. In the top header, click h igh blood pressure. 3. For a printable blood pressure tracker, scroll toward the bottom of the page to Related Tools, and click H BP Trackers. 1-380-UQX-[place]-1 or ( ) National Heart, Lung and Blood [place]: http://www.nhlbi.nih.gov/health/infoctr/index.htm documented as of this encounter Visit Diagnoses Not on filedocumented in this encounter Additional Health Concerns Infection Onset Date Last Indicated Resolved Time COVID-19 Under Investigation 06/20/2023 06/20/2023 06/20/2023 9:18 AM CDT documented as of this encounter Care Teams Coke Production Heater Relationship Specialty Start Date End Date German Monahan Jr., MD [address] [place] [address] [address] [place] [address] PCP - General 05/12/08 09/26/21 Shereen Mckeon MD [address] [place] [address] [address] [place] [id number] PCP - General Internal Medicine 09/27/21 documented as of this encounter
--- OUTSIDE RECORDS SUMMARY | 2024-11-14 15:37 | XMS_ITS | Continuity of Care Document ---
Author Organization [facility] Address [address] [place] [address] Phone Care Team Providers Care Professor Of Communication And Writing Name Role Phone Calvin Gu MD Unavailable [...] - Active Procedures Procedure Date OFFICE/OUTPATIENT VISIT [facility] Advance Directives Directive Yes / No Effective Date File Name No Information Encounters Encounter Description Practice Location Reason(s) For Visit Diagnoses Date Provider Providers Copied on Encounter [facility], [address], [place], [address], [place] tel:[phone] [facility] No Information 0-201 9 Riccardo Simpson. [address], [place], [place], [id number] . tel: [phone] OFFICE/OUTPA TIENT VISIT [facility], [address], [place], [address], [place] tel:[phone] [facility] Body mass index (BMI) 28.0-28.9, adultPrimary osteoarthritis of left kneePrimary osteoarthritis of left hip 0-201 9 Aurelioantonieta Calvin. [address], [place], [place], [id number] . tel: [phone] Referring Provider: German Monahan, [address] [place] [address], [address]. tel:[phone] Family History Family Member Type Diagnosis Age At Onset No Information Payers Payer name Insurance type Covered constitution party ID Authoriza tion(s) No Information Social History [...]
--- OUTSIDE RECORDS SUMMARY | 2024-11-14 15:37 | XMS_ITS | Patient Health Summary ---
Author Organization [facility] Address [address] [place] [address] Care Team Providers Care Patient Experience Coordinator Name Role Phone Shereen Mckeon MD Primary Care Provider [phone] Note from [facility],non-owned Affiliates and Associated Physician Practices is amultiple site organization consisting of ambulatory clinics and hospital sitesin [place], [place], [place] and [place]. This disclosure is being madepursuant to the Care Everywhere program and may not contain all information available regarding this patient. Last updated 18.[facility] Allergies * Bactrim * Ciprofloxacin Hydrochloride(Rash) -Low Criticality * Sulindac(Nausea) * Paroxetine(Other) Medications * Be aware that medications may not be up to date on this document. Alwaysverify current medications with the patient. * Friedens-3 Fatty Acids (FISH OIL PO) * Multiple [...] Comments Blood Pressure 112/74 10/04/2024 9:31 AM AGENCY SERVICE REPRESENTATIVE Pulse 56 10/04/2024 9:31 AM AGENCY SERVICE REPRESENTATIVE Temperature 36.4 C (97.5 F) 10/04/2024 9:31 AM AGENCY SERVICE REPRESENTATIVE Respiratory Rate 16 10/03/2023 1:32 PM AGENCY SERVICE REPRESENTATIVE Oxygen Saturation 98% 10/04/2024 9:31 AM AGENCY SERVICE REPRESENTATIVE Inhaled Oxygen Concentration - - Weight 88.9 kg (196 lb) 10/04/2024 9:31 AM AGENCY SERVICE REPRESENTATIVE Height 177.8 cm (5' 10 ) 06/14/2024 2:29 PM CDT Body Mass Index 28.12 06/14/2024 2:29 PM CDT Medical Devices Implanted Type Area Grain Distributor Device Identifier Shelf Expiration Date Model / Serial / Lot Endo Sabine Articulating Reload Implanted:Qty: 1 on 05/27/2013 at [facility] 12/04/2017 [id number] / / [id number] Description:60 mm Endo Sabine Reload 60mm Implanted:Qty: 2 on 05/27/2013 at [facility] 03/06/2018 [id number] / / [id number] Endo Sabine Articulating Reload, 60mm Implanted:Qty: 1 on 05/27/2013 at [facility] 04/05/2018 [id number] / / [id number] Autosuture Dst Series 28 Xl Eea Implanted:Qty: 1 on 05/27/2013 at [facility] 12/04/2016 [id number] / / [id number] [place] Sut Pushlock 2.9mm Bcmps 12.5mm Implanted:Qty: 1 on 09/17/2018 by Jayjay Prieto MD at [facility] Left: Shoulder [employer] 03/05/2020 [id number] / / [id number] [place] Sut Pushlock 2.9mm Bcmps 12.5mm Implanted:Qty: 2 on 09/17/2018 by Jayjay Prieto MD at [facility] Left: Shoulder [employer] 06/05/2020 [id number] / / [id number] [place] Sut Fibertak Suturetape 1.3mm Implanted:Qty: 1 on 09/17/2018 by Jayjay Prieto MD at [facility] Left: Shoulder [employer] 01/03/2023 [id number] / / [id number] [place] Sut Pushlock 2.9mm Bcmps 12.5mm Implanted:Qty: 1 on 09/17/2018 by Jayjay Prieto MD at [facility] Left: Shoulder [employer] 05/05/2020 [id number] / / [id number] [place] Sut Pushlock 2.9mm Bcmps Roland Implanted:Qty: 1 on 09/17/2018 by Jayjay Prieto MD at [facility] Left: Shoulder [employer] 02/03/2020 AR-[id number] / / [id number] Procedures * PROSTATE SPECIFIC ANTIGEN SCREEN(Performed 11/05/2024) [...] CARDIOLOGY(Performed 08/16/2008) Performed for Chest Pain * DE STRESS TTE W/ INTERP/REPORT(Performed 08/10/2008) Performed for Dyspnea * DE CARDIAC STRESS TST,COMPLETE(Performed 08/10/2008) Performed for Dyspnea [...] * CBC WITH DIFFERENTIAL (11/05/2024 6:59 AM AGENCY SERVICE REPRESENTATIVE) Only the most recent of22 resultswithin the [...] 0.5 % [facility] Comment: Test Performed at: [facility] [address] [place] [address] BRIGIDO SHELTON MD 11/05/2024 6:59 AM AGENCY SERVICE REPRESENTATIVE 11/05/2024 7:01 AM AGENCY SERVICE REPRESENTATIVE Marcella Marquez COOK HELPER MEAT-OFFSET PRESS OPERATOR HELPER LAB - SOL TOLOGY ORDERABLES [facility] [address] [place] [address] * COMPREHENSIVE METABOLIC PANEL (11/05/2024 6:59 AM AGENCY SERVICE REPRESENTATIVE) Only the most recent of18 resultswithin the [...] 46 U/L [facility] Comment: Test Performed at: [employer] [place] [address] BRIGIDO SHELTON MD 11/05/2024 6:59 AM AGENCY SERVICE REPRESENTATIVE 11/05/2024 7:01 AM AGENCY SERVICE REPRESENTATIVE Marcella Marquez APRN-OFFSET PRESS OPERATOR HELPER LAB - CHEM ISTRY ORDERABLES Performing Organization Address [facility] de Phone Number [facility] [address] [place] [address] * PROSTATE SPECIFIC ANTIGEN SCREEN (11/05/2024 6:59 AM AGENCY SERVICE REPRESENTATIVE) Only the most recent of9 resultswithin the [...] or absence of disease. Test Performed at: [facility] [address] [place] [address] BRIGIDO SHELTON MD 11/05/2024 6:59 AM AGENCY SERVICE REPRESENTATIVE 11/05/2024 7:01 AM AGENCY SERVICE REPRESENTATIVE Marcella Marquez COOK HELPER MEAT-OFFSET PRESS OPERATOR HELPER LAB - CHEM ISTRY ORDERABLES Performing Organization Address [facility] de Phone Number [facility] [address] [place] [address] * LIPID PROFILE (11/05/2024 6:59 AM AGENCY SERVICE REPRESENTATIVE) Only the most recent of7 resultswithin the [...] LDL-C. German SS et al. FAUZIA. 2013;310(19): 9372-9166 (http://education.CaroGen/faq/YUR414) CHOL/HDLC RATIO 3.0 <5.0 (calc) [facility] Non HDL Cholesterol 107 <130 mg/dL (calc) [facility] Comment: For patients with diabetes plus 1 major ASCVD risk factor, treating to a non-HDL-C goal of <100 mg/dL (LDL-C of <70 mg/dL) is considered a therapeutic option. Test Performed at: [facility] [address] [place] [address] BRIGIDO SHELTON MD 11/05/2024 6:59 AM AGENCY SERVICE REPRESENTATIVE 11/05/2024 7:01 AM AGENCY SERVICE REPRESENTATIVE Marcella Marquez COOK HELPER MEAT-OFFSET PRESS OPERATOR HELPER LAB - CHEM ISTRY ORDERABLES [facility] [address] [place] [address] * ISTAT CREATININE (10/04/2024 1:59 PM AGENCY SERVICE REPRESENTATIVE) Sample iSTAT GRICELDA 10/04/2024 2:01 PM AGENCY SERVICE REPRESENTATIVE [facility] Creatinine POCT 0.8 0.5 - 1.3 mgdL 10/04/2024 2:01 PM AGENCY SERVICE REPRESENTATIVE [facility] Blood BLOOD SPECIMEN / Unknown 10/04/2024 1:59 PM AGENCY SERVICE REPRESENTATIVE 10/04/2024 2:01 PM AGENCY SERVICE REPRESENTATIVE Marcella Marquez COOK HELPER MEAT-OFFSET PRESS OPERATOR HELPER LAB - POIN T OF CARE ORDERABLES [facility] [address] [place] [address], [facility] * CT Abdomen Pelvis W Contrast (10/04/2024 1:45 PM AGENCY SERVICE REPRESENTATIVE) Only the most recent of7 resultswithin the time period is included. Anatomical Region Laterality Modality Abdomen, Pelvis Computed Tomogra phy 10/04/2024 2:24 PM AGENCY SERVICE REPRESENTATIVE Impressions 10/04/2024 2:29 PM AGENCY SERVICE REPRESENTATIVE IMPRESSION: 1. Inflammatory change adjacent to the [...] 10/04/2024 2:29 PM Narrative 10/04/2024 2:29 PM AGENCY SERVICE REPRESENTATIVE PROCEDURE: CT ABDOMEN PELVIS W CONTRAST DATE/TIME [...] MD on 10/04/2024 2:29 PM Marcella Marquez COOK HELPER MEAT-OFFSET PRESS OPERATOR HELPER CT ORDERAB LES * TOXASSURE SELECT URINE (08/23/2024 3:56 PM AGENCY SERVICE REPRESENTATIVE) Summary FINAL [facility] INSURANCE BILL Comment: TOXASSURE SELECT 13 (MW) Test Result Flag Units NO DRUGS DETECTED. Test Result Flag Units Ref Range Creatinine 29 mg/dL >=20 Declared Medications: Medication list was not provided. For clinical consultation, please call . URINE SPECIMEN OBTAINED BY CLEAN CATCH PROCEDURE / Unknown 08/23/2024 3:56 PM AGENCY SERVICE REPRESENTATIVE 08/23/2024 Narrative [facility] INSURANCE BILL - 08/29/2024 3:07 PM AGENCY SERVICE REPRESENTATIVE Performed at: 01 - [place] [address] [id number] Technical Training Specialist: Mayelin Moe, Phone: [phone] Specimen Comment: ToxAssure, [employer] FLEX or MAT drug testing: Specimen Comment: -Technical component - Data analysis performed at Specimen Comment: [address], [place] [address]. Verenice Dickens APRN-OFFSET PRESS OPERATOR HELPER LAB - URINE CHEMISTRY ORDERABLES [facility] INSURANCE BILL [address] [place] [address] * CARDIAC STRESS TEST ORDER (02/26/2024 7:09 PM CDT) Narrative 02/26/2024 7:09 PM CDT Ordered by an unspecified provider. Scanned Document CARDIAC SERVICES ORD ERABLES * ECHO COMPLETE (02/18/2024 1:37 PM CDT) BSA [id number] m2 [facility] CV FUJI PACS LV biplane [...] -20.4 % SS M CV FUJI PACS WA pk sys strain -15.2 % [facility] CV [...] 12.1 mmHg [facility] CV FUJ I PACS DE pk mario 150.955 cm/s [facility] CV FUJ I PACS DE pk grad 9 mmHg [facility] CV FU [...] Index 26 ml/m2 [facility] CV FUJI PACS [id number] 6.724 cm [facility] FUJ I PACS [id number] 6.421 cm [facility] CV FUJ I PACS [...] 1:35 PM CDT) Predicted METS 8.0 METS [facility] CARDIAC SERVICES Target HR 135 bpm [facility] CARDI AC SERVICES Max Age Predicted HR 159 bpm [facility] CARDIAC [facility] Angina Index 0 [facility] CA RDIAC SERVICES Exercise duration (min) 10 min [facility] C[facility] Exercise duration (sec) 2 sec [facility] Peak METS Achieved 11.7 METS [facility] CARDIAC SERVICES Actual / Predicted METS 146.4 % [facility] CARDI[facility] Baseline HR 55 bpm [facility] CAR DIAC SERVICES Stress peak HR 153 bpm [facility] CARDIAC SERVICES Max HR Percent 96 % [facility] Rate Pressure Product 27,693 [facility] C[facility] SERVICES Baseline BP 98/54 mmHg [facility] DI[facility] Post peak BP 181/101 mmHg [facility] Target HR Percent 113 % [facility] CARD[facility] ST Depression (mm) 0 mm [facility] Recovery ST Depression (mm) 0 mm [facility] [place] Treadmill Score 10 [facility] Anatomical Region Laterality Modality [...] [facility] M[facility] Calculated P [place] 71 degrees [facility] MUSE Calculated R [place] 59 degrees [facility] MUSE Calculated T [place] 57 degrees SL MED GRP MUSE Interpretation EKG Sinus bradycardia Incomplete right bundle branch block Borderline ECG Confirmed by EJ WATTERS MD ([id number]) on 02/13/2024 5:44:26 PM [facility] MUSE 02/04/2024 2:45 PM CDT 02/13/2024 5:44 PM CDT Ej Watters MD ECG ORDERABLES Performing Organization Address [facility] Co de Phone Number [facility] GRP MUSE * LAB RESULTS ORDER (01/18/2024) [...] Unknown 12/29/2023 9:56 AM CDT Verenice Dickens COOK HELPER MEAT-OFFSET PRESS OPERATOR HELPER LAB - POINT OF CARE ORDERABLES [facility] [address] [place] [address], [facility] [phone] * XR SHOULDER LEFT 2VW OR MORE [...] MD on 06/20/2023 10:07 AM Pamela Somers APRN-[facility] DIAGNOSTIC IMAGING ORDERABLES * (ABNORMAL) STREP A SCREEN - POINT OF CARE (AMB) (06/20/2023 9:19 AM CDT) Only the most recent of3 resultswithin the time period is included. Strep A Rapid POCT Positive(A) Negative [facility] Strep A Internal Control Present [facility] Other ENTIRE THROAT (SURFACE REGION OF NECK) / Unknown 06/20/2023 9:19 AM CDT Pamela Somers APRN-[facility] LAB - POINT OF CARE ORDERABLES [facility] [address] [phone] * SARS-COV-2 (COVID-19) AG (AMB) POCT (06/20/2023 9:17 AM CDT) SARS-CoV-2 Ag Negative Negative [facility] Lot # [id number] [facility] Expiration Date [id number] [facility] Instrument Serial Number [id number] [facility] COVID Internal Control [...] and symptoms consistent with COVID-19. Pamela Somers APRN-OFFSET PRESS OPERATOR HELPER LAB - POINT OF CARE ORDERABLES [facility] [address] [place] [address], [facility] [phone] * MRI SHOULDER LEFT WO CONTRAST (05/08/2023 [...] DATE/TIME OF EXAM: 05/08/2023 6:50 AM, LOCATION [facility] INDICATION: M25.512: Pain in left shoulder G89.29: [...] DATE/TIME OF EXAM: 05/08/2023 6:50 AM, LOCATION [facility] INDICATION: M25.512: Pain in left shoulder G89.29: [...] BASIC METABOLIC PANEL (BMP) (11/08/2022 8:44 AM AGENCY SERVICE REPRESENTATIVE) Only the most recent of7 resultswithin the [...] BLOOD SPECIMEN / Unknown 11/08/2022 8:44 AM AGENCY SERVICE REPRESENTATIVE 11/08/2022 Narrative Resulting Agency Comment Lab Testing performed at: [facility] hospital [address] Darshan AYERS [phone] Pamela Somers COOK HELPER MEAT-OFFSET PRESS OPERATOR HELPER LAB - CHEMISTRY ORD ERABLES [facility] ACCOUNT BILL [address] [place] [address] * PATHOLOGY TISSUE EXAM (STL) (12/17/2021 7:39 AM CDT) Only the most recent of5 resultswithin the time period is included. Case Report Surgical Pathology Report Case: [id number] Authorizing Provider: Angel Coyle MD Collected: 12/17/2021 07:39 AM Ordering Location: [facility] Received: 12/18/2021 11:30 AM Pathologist: Kalani Galvin MD Specimen: Polyp Ascending, x1 Mid Transverse polyp x1 12/19/2021 1:41 PM CDT [facility] Final Diagnosis Colon, ascending/mid transverse; polypectomy x2: Tubular adenoma(s) x1 - Negative for high-grade dysplasia Benign non-neoplastic polypoid mucosa, no epithelial lesion x1 12/19/2021 1:41 PM CDT [facility] Clinical History Two polyps up to 3 mm and diverticulosis, healthy-appearing anastomosis 12/19/2021 1:41 PM CDT [facility] Gross Description One specimen received in a formalin filled container labeled ascending polyp x1 and mid transverse polyp x1 consists of 2 burks mucosal fragments 3 and 6 mm greatest dimension, submitted in toto in A1. 12/19/2021 1:41 PM CDT [facility] Disclaimer All histochemical and/or immunohistochemical results are interpreted with controls that demonstrate appropriate staining reactions before reporting results. Note on use of immunocytochemistry reagents: This test was developed and its performance characteristic determined by [facility], Department of Laboratory Medicine. It has not [...] interpreted with caution. 12/19/2021 1:41 PM CDT [facility] Embedded Images 12/19/2021 1:41 PM CDT [facility] Pathology/Cytolo gy POLYP / Unknown 12/17/2021 7:39 AM CDT 12/18/2021 11:30 AM CDT Angel Coyle MD LAB - PATHOLOGY/CYTO LOGY ORDERABLES Performing Organization Address [facility]/ZIP Co de Phone Number [facility] [address] [phone] * ENDOSCOPY, COLON, SCREENING (12/17/2021) Angel Coyle MD GI PROCEDURE ORDERAB LES Performing Organization Address City/[facility]/ZIP Co de Phone Number [facility] RESULT SCAN * URINALYSIS NO MICROSCOPIC NO CULTURE (08/15/2021 3:42 PM AGENCY SERVICE REPRESENTATIVE) Specific [place] UA 1.009 1.005 - 1.030 [facility] ACCOUNT [...] URINE SPECIMEN / Unknown 08/15/2021 3:42 PM AGENCY SERVICE REPRESENTATIVE 08/15/2021 Narrative Resulting Agency Comment Lab Testing performed at: [facility] access hospital [address] [facility] [phone] Glendy Bruner COOK HELPER MEAT-OFFSET PRESS OPERATOR HELPER LAB - URIN ALYSIS ORDERABLES Performing Organization Address City/[facility]/ZIP Co de Phone Number [facility] ACCOUNT BILL [address] [place] [address] * TESTOSTERONE TOTAL (08/15/2020 8:11 AM AGENCY SERVICE REPRESENTATIVE) Testosterone 449 221 - 716 ng/dL [facility] ACCOUNT BILL Comment:FASTING Blood BLOOD SPECIMEN / Unknown 08/15/2020 8:11 AM AGENCY SERVICE REPRESENTATIVE 08/15/2020 Narrative Resulting Agency Comment Lab Testing performed at: [facility] [address] [facility] [phone] Glendy Bruner COOK HELPER MEAT-OFFSET PRESS OPERATOR HELPER LAB - CHEM ISTRY ORDERABLES Performing Organization Address City/[facility] Co de Phone Number [facility] ACCOUNT BILL [address] [place] [address] * FL GUIDED NEEDLE PLACEMENT (07/04/2020 8:42 [...] Procedure Title from [facility]: FL GUIDED NEEDLE PLACEMENT*[id number] COMPARISON: 06/26/2020 right hip x-ray PHYSICIAN PERFORMING [...] of the right hip Procedure Title from [facility]: FL GUIDED NEEDLE PLACEMENT*[id number] COMPARISON: 06/26/2020 right hip x-ray PHYSICIAN PERFORMING [...] on 06/26/2020 at 12:21 PM Glendy Bruner COOK HELPER MEAT-OFFSET PRESS OPERATOR HELPER DIAGNOSTIC IMAGING ORDERABLES * XR LUMBAR SPINE [...] on 06/26/2020 at 12:26 PM Glendy Bruner COOK HELPER MEAT-OFFSET PRESS OPERATOR HELPER DIAGNOSTIC IMAGING ORDERABLES * XR KNEE LEFT 4VW OR MORE (10/19/2019 1:12 PM AGENCY SERVICE REPRESENTATIVE) Anatomical Region Laterality Modality Lower Extremity Radiographic Mckenna ging Narrative 10/19/2019 1:12 PM AGENCY SERVICE REPRESENTATIVE Marlys Sanford SErika, RT 10/19/2019 1:25 PM Please see progress note in Epic for results. Woody Doe DO DIAGNOSTIC IMAGING ORDERABLES * XR PELVIS W RIGHT HIP 1VW (10/19/2019 1:11 PM AGENCY SERVICE REPRESENTATIVE) Anatomical Region Laterality Modality Pelvis Radiographic Mckenna ging Narrative 10/19/2019 1:12 PM AGENCY SERVICE REPRESENTATIVE Marlys Sanford S., RT 10/19/2019 1:25 PM Please see progress note in Epic for results. Woody Galvan Satterjeremiah DO DIAGNOSTIC IMAGING ORDERABLES * TSH REFLEX FREE T4 (08/13/2019 8:33 AM AGENCY SERVICE REPRESENTATIVE) Only the most recent of2 resultswithin the time period is included. TSH 3.3035 0.35 - 4.94 ulU/mL [facility] ACCOUNT BILL Comment:FASTING Blood BLOOD SPECIMEN / Unknown 08/13/2019 8:33 AM AGENCY SERVICE REPRESENTATIVE 08/13/2019 Narrative Resulting Agency Comment Lab Testing performed at: [address] Darshan AYERS [phone] German Monahan Jr., MD LAB - CHEMISTRY O USAMA Performing Organization Address [facility] Co de Phone Number [facility] ACCOUNT BILL [address] [place] [address] * (ABNORMAL) TESTOSTERONE FREE+TOT PANEL (08/13/2019 8:33 AM AGENCY SERVICE REPRESENTATIVE) Testosterone Total LC-MS 279.9 264.0 - 916.0 ng/dL [facility] ACCOUNT BILL Comment: [facility] method is currently certified by the CDC Hormone Standardization Program (HoSt). Adult male reference interval is based on a population of healthy nonobese males (BMI <30) between 19 and 39 years old. Leti et.al. JCEM 2017,102;2975-1041. PMID: 02391521. Free Testosterone(Direct ) 5.3(L) 7.2 - 24.0 pg/mL [facility] ACCOUNT BILL Comment:FASTING Blood BLOOD SPECIMEN / Unknown 08/13/2019 8:33 AM AGENCY SERVICE REPRESENTATIVE 08/13/2019 Narrative [facility] ACCOUNT BILL - 08/18/2019 6:08 AM AGENCY SERVICE REPRESENTATIVE Test(s) 365244--Ocgibondxbrc, Total, LC/MS was developed and its performance characteristics determined by [facility]. It has not been cleared or approved by the Food and Drug Administration. Resulting Agency Comment Lab Testing performed at: [address] [phone] German Monahan Jr., MD LAB - CHEMISTRY Shine FORRESTER Performing Organization Address City/[facility]/ZIP Co de Phone Number [facility] ACCOUNT BILL [address] [place] [address] * T4 FREE (08/13/2019 8:33 AM AGENCY SERVICE REPRESENTATIVE) T4 Free Direct NOT NEEDED LAB OR ACCOUNT BILL Comment: Test not performed FASTING Ancillary determined the test is not needed. 08/13/2019 8:33 AM AGENCY SERVICE REPRESENTATIVE 08/13/2019 Narrative Resulting Agency Comment Lab Testing performed at: [facility] [address] [place] [id number] German Monahan Jr., MD LAB - CHEMISTRY O RDERABLES [facility] ACCOUNT [place]ILL [place] [address] * HELICOBACTER PYLORI UREASE (STL) (08/05/2019 8:39 AM CDT) Helicobacter pylori Urease Initial Negative Negative 08/06/2019 11:08 AM CDT [facility] Helicobacter pylori Urease Final Negative Negative 08/06/2019 11:08 AM CDT [facility] Microbiology GASTRIC ANTRAL BIOPSY SPECIMEN / Unknown Collection / Unknown 08/05/2019 8:39 AM CDT 08/06/2019 11:06 AM CDT Angel Coyle MD LAB - MICROBIOLOGY O RDERAWESTON Performing Organization Address City/[facility]/ZIP Co de Phone Number [facility] [address] [place] [address] * EGD (08/05/2019) Oly Burton COOK HELPER MEAT-OFFSET PRESS OPERATOR HELPER GI PROCEDUR E ORDERABLES Performing Organization Address City/[facility]/ZIP Co de Phone Number [facility] RESULT SCAN * (ABNORMAL) CREATININE BLOOD - POINT OF CARE (IP) (08/02/2019 3:39 PM CDT) Only the most recent of4 resultswithin the time period is included. Pathologist [facility] Creatinine POCT 0.62(A) 0.7 - 1.2 mg/dL [facility] Comment:Above 60 GFR. QC Verified Yes Yes [facility] Blood BLOOD SPECIMEN / Unknown 08/02/2019 3:39 PM CDT Elsi Trujillo COOK HELPER MEAT-OFFSET PRESS OPERATOR HELPER LAB - POINT OF CARE ORDERABLES Performing Organization Address City/[facility]/ZIP Co de Phone Number [facility] [address] [place] [address], [facility] * PERIPHERAL BLOCK (02/15/2019 3:27 PM CDT) [...] RDERABLES * INTERPRETATION REFLEXED (10/22/2018 9:26 AM AGENCY SERVICE REPRESENTATIVE) Interpretation [facility] ACCOUNT BILL Comment: Negative Not infected with HCV, unless recent infection is suspected or other evidence exists to indicate HCV infection. 10/22/2018 9:26 AM AGENCY SERVICE REPRESENTATIVE 10/22/2018 Narrative Resulting Agency Comment [facility] [address] [facility] [phone] German Monahan Jr., MD LAB - SEROLOGY OR DERABLES Performing Organization Address City/[facility] Co de Phone Number [facility] ACCOUNT BILL [address] [place] [address] * HEPATITIS C ANTIBODY W RFLX PCR (10/22/2018 9:26 AM AGENCY SERVICE REPRESENTATIVE) Hepatitis C Antibody 0.1 0.0 - 0.9 s/co ratio [facility] ACCOUNT BILL Blood BLOOD SPECIMEN / Unknown 10/22/2018 9:26 AM AGENCY SERVICE REPRESENTATIVE 10/22/2018 Narrative Resulting Agency Comment [facility] [address] [facility] [place] [phone] German Monahan Jr., MD LAB - CHEMISTRY O RDERABLES Performing Organization Address City/[facility] Co de Phone Number [facility] ACCOUNT BILL [address] [place] [address] * URIC ACID BLOOD (10/22/2018 9:26 AM AGENCY SERVICE REPRESENTATIVE) Only the most recent of2 resultswithin the time period is included. Uric Acid 6.8 3.7 - 8.6 mg/dL [facility] ACCOUNT BILL Comment:Therapeutic target f or gout patients: <6.0 Blood BLOOD SPECIMEN / Unknown 10/22/2018 9:26 AM AGENCY SERVICE REPRESENTATIVE 10/22/2018 Narrative Resulting Agency Comment [facility] [address] [facility] [phone] German Monahan Jr., MD LAB - CHEMISTRY O USAMA Performing Organization Address [facility] Co de Phone Number [facility] ACCOUNT BILL [address] [place] [address] * HEMOGLOBIN A1C (10/22/2018 9:26 AM AGENCY SERVICE REPRESENTATIVE) Hemoglobin A1c 5.2 4.8 - 5.6 % [facility] ACCOUNT BILL Comment: . Prediabetes: 5.7 - 6.4 Diabetes: >6.4 Glycemic control for adults with diabetes: <7.0 Blood BLOOD SPECIMEN / Unknown 10/22/2018 9:26 AM AGENCY SERVICE REPRESENTATIVE 10/22/2018 Narrative Resulting Agency Comment [facility] [place] [address] [facility] [phone] German Monahan Jr., MD LAB - CHEMISTRY Shine FORRESTER Performing Organization Address [facility] de Phone Number [facility] ACCOUNT BILL [address] [place] [address] * CARDIAC RHYTHM STRIP ORDER (09/19/2018 1:30 AM AGENCY SERVICE REPRESENTATIVE) Only the most recent of2 resultswithin the time period is included. Narrative 09/19/2018 1:30 AM AGENCY SERVICE REPRESENTATIVE Ordered by an unspecified provider. Scanned Document CARDIAC SERVICES ORD ERABLES * ENDOSCOPY, COLON, SCREENING (08/17/2018) Angel Coyle MD GI PROCEDURE ORDERAB LES Performing Organization Address [facility] Co de Phone Number [facility] RESULT [...] Mckenna ging Narrative 12/24/2017 6:13 PM CDT Carmen Christie, RT(R) 12/24/2017 6:13 PM Please see chart for x ray report. Jayjay Prieto MD DIAGNOSTIC IMAGING O RDERABLES * XR TEMPROMANDIBULAR JOINTS BILATERAL (10/27/2017 3:30 PM AGENCY SERVICE REPRESENTATIVE) Anatomical Region Laterality Modality Head Radiographic Mckenna ging 10/27/2017 4:06 PM AGENCY SERVICE REPRESENTATIVE Impressions 10/27/2017 4:10 PM AGENCY SERVICE REPRESENTATIVE No fracture or bone lesion is seen in either mandibular condyle. There is limited excursion on the open mouth views as compared to the close mouth views. Narrative 10/27/2017 4:10 PM AGENCY SERVICE REPRESENTATIVE Bilateral TMJ x-rays HISTORY: Right TMJ joint [...] MIN 3 VIEWS LEFT (10/27/2017 2:20 PM AGENCY SERVICE REPRESENTATIVE) Anatomical Region Laterality Modality Upper Extremity Radiographic Mckenna ging 10/27/2017 2:29 PM AGENCY SERVICE REPRESENTATIVE Impressions 10/27/2017 2:29 PM AGENCY SERVICE REPRESENTATIVE Healed left clavicular fracture otherwise essentially negative Narrative 10/27/2017 2:29 PM AGENCY SERVICE REPRESENTATIVE Left Shoulder HISTORY: Pain no injury. Three [...] WITH AND WITHOUT CONTRAST (10/16/2017 4:00 PM AGENCY SERVICE REPRESENTATIVE) Anatomical Region Laterality Modality Abdomen Magnetic Resonan ce 10/17/2017 8:53 AM AGENCY SERVICE REPRESENTATIVE Impressions 10/17/2017 9:03 AM AGENCY SERVICE REPRESENTATIVE Small hemangioma, hepatic segment VII. Scattered, tiny simple hepatic cysts. Small bilateral renal cysts. Examination otherwise within normal limits. Narrative 10/17/2017 9:03 AM AGENCY SERVICE REPRESENTATIVE Procedure Title: MRI ABDOMEN WWO CONTRAST*[id number] HISTORY: Other specified abnormal findings of blood [...] - 10/17/2017 Procedure Title: MRI ABDOMEN WWO CONTRAST*[id number] HISTORY: Other specified abnormal findings of blood [...] * ENDOSCOPY, COLON, DIAGNOSTIC (07/07/2017) Oly Burton COOK HELPER MEAT-OFFSET PRESS OPERATOR HELPER GI PROCEDUR E ORDERABLES [facility] RESULT SCAN * LIPASE BLOOD (05/08/2017 8:01 AM CDT) Lipase 246 73 - 393 U/L [facility] ACCOUNT BILL Blood BLOOD SPECIMEN / Unknown 05/08/2017 8:01 AM CDT 05/08/2017 Narrative Resulting Agency Comment [facility] [address] Darshan AYERS [phone] German Monahan Jr., MD LAB - CHEMISTRY O RDERABLES [facility] ACCOUNT BILL [address] [place] [address] * XR CERVICAL SPINE MIN 4+ VW (10/04/2016 9:54 AM AGENCY SERVICE REPRESENTATIVE) Anatomical Region Laterality Modality Spine Radiographic Mckenna ging 10/04/2016 11:5 5 AM AGENCY SERVICE REPRESENTATIVE Impressions 10/04/2016 11:58 AM AGENCY SERVICE REPRESENTATIVE No evidence of compression fracture or spondylolisthesis. Slightly decreased C5-C6 intervertebral space height. No prevertebral soft tissue swelling. Narrative 10/04/2016 11:58 AM AGENCY SERVICE REPRESENTATIVE Cervical spine series with oblique views. HISTORY: [...] be acute. IMPRESSION Negative exam. Elsi Trujillo COOK HELPER MEAT-OFFSET PRESS OPERATOR HELPER DIAGNOSTIC IMAG ING ORDERABLES * STREP A SCREEN - POCT (IP) URGENT CARE (06/08/2016 10:47 AM CDT) Only the most recent of2 resultswithin the time period is included. Pathologist [facility] Strep A Rapid POCT Negative Negative [facility] POCT TESTING QC Verified Yes Yes [facility] POC T TESTING Throat swab (specimen) ENTIRE THROAT (SURFACE REGION OF NECK) / Unknown 06/08/2016 10:47 AM CDT Judy Hill COOK HELPER MEAT-OFFSET PRESS OPERATOR HELPER LAB - POINT O F CARE ORDERABLES [facility] POCT TESTING [address] * (ABNORMAL) CULTURE AEROBIC (02/02/2015 11:50 [...] PM CDT Narrative Resulting Agency Comment [facility] [address] [phone] Elsi Trujillo COOK HELPER MEAT-OFFSET PRESS OPERATOR HELPER LAB - MICROBIOL OGY ORDERABLES [facility] ACCOUNT [...] 6:11 PM CDT Narrative Resulting Agency Comment [facility] [phone] German Monahan Jr., MD LAB - CHEMISTRY O RDERAWESTON Performing Organization Address [facility] de Phone Number [facility] ACCOUNT BILL * TSH (07/28/2013 3:31 PM CDT) Only the most recent of4 resultswithin the time period is included. TSH 2.910 0.450 - 4.500 uIU/mL [facility] ACCOUNT BILL Blood specimen (specimen) BLOOD SPECIMEN / Unknown 07/28/2013 3:31 PM CDT 07/28/2013 6:11 PM CDT Narrative Resulting Agency Comment [facility] [phone] German Monahan Jr., MD LAB - CHEMISTRY O RDERAWESTON Performing Organization Address [facility] Co de Phone Number [facility] ACCOUNT BILL * ENDOSCOPY, COLON, DIAGNOSTIC (12/28/2012) Angel Coyle MD GI PROCEDURE ORDERAB LES Performing Organization Address [facility] Co de Phone Number [facility] RESULT [...] PM CDT Narrative Resulting Agency Comment [facility] [address] [phone] German Monahan Jr., MD LAB - CHEMISTRY O RDERABLES Performing Organization Address City/[facility]/ZIP Co de Phone Number [facility] ACCOUNT BILL * SED RATE WESTERGREN AUTO (02/20/2011 1:25 PM CDT) Only the most recent of2 resultswithin the time period is included. Erythrocyte Sedimentation Rate Westergren 9 0 - 15 mm/hr [facility] ACCOUNT BILL BLOOD SPECIMEN / Unknown 02/20/2011 1:25 PM CDT 02/20/2011 6:09 PM CDT Narrative Resulting Agency Comment [facility] [place] [id number] [facility] [phone] German Monahan Jr., MD LAB - HEMATOLOGY ORDERABLES Performing Organization Address [facility] Co de Phone Number [facility] ACCOUNT BILL * URINALYSIS ROUTINE W/REFLEX TO CULTURE (12/10/2010 3:58 PM AGENCY SERVICE REPRESENTATIVE) Specific [place] UA 1.013 1.005 - 1.030 [facility] ACCOUNT [...] CATCH PROCEDURE / Unknown 12/10/2010 3:58 PM AGENCY SERVICE REPRESENTATIVE 12/10/2010 11:25 PM AGENCY SERVICE REPRESENTATIVE Narrative Resulting Agency Comment [facility] [address] [phone] German Monahan Jr., MD LAB - URINALYSIS ORDERABLES Performing Organization Address City/[facility]/ZIP Co de Phone Number [facility] ACCOUNT BILL * URINALYSIS MICROSCOPIC ONLY (12/10/2010 3:58 PM AGENCY SERVICE REPRESENTATIVE) WBC UA None seen 0 - 5 [...] test is not needed 12/10/2010 3:58 PM AGENCY SERVICE REPRESENTATIVE 12/10/2010 11:25 PM AGENCY SERVICE REPRESENTATIVE Narrative Resulting Agency Comment [facility] [place] [id number] [facility] [phone] German Monahan Jr., MD LAB - URINALYSIS ORDERABLES Performing Organization Address City/[facility]/ZIP Co de Phone Number [facility] ACCOUNT BILL * STRESS TEST NUCLEAR (07/13/2010 12:46 PM CDT) Valerie Erickson COOK HELPER MEAT-OFFSET PRESS OPERATOR HELPER CARDIAC SERVICES ORDERABLES * AMB REFERRAL TO CARDIOLOGY (08/16/2008) German Monahan Jr., MD OUTPATIENT REFERR ALS * DE CARDIAC STRESS TST,COMPLETE, DE STRESS TTE W/ INTERP/REPORT (08/10/2008) Narrative Stephanie [...] 10/06/2001 Family History: NONE CAD: Negative Previous [place]: Negative Post PTCA: Negative Resting EKG: Sinus [...] no evidence of ischemia. Elizabeth Casas MD, [facility] Procedure Note Yael Fields - 08/10/2008 4:24 [...] 10/06/2001 Family History: NONE CAD: Negative Previous [place]: Negative Post PTCA: Negative Resting EKG: Sinus [...] suggest noevidence of ischemia. Elizabeth [facility] MD, [facility] German Monahan Jr., MD ECHO ORDERABLES * RAHEEM W REFLX (POSITIVE) (PO REF LAB) (08/19/2007 4:17 PM AGENCY SERVICE REPRESENTATIVE) Pathologist [facility] RAHEEM Direct 33 0 - 99 AU/mL [facility] INSURANCE BILL Comment: Negative <100 Equivocal 100 - 120 Positive >120 08/19/2007 4:17 PM AGENCY SERVICE REPRESENTATIVE 08/19/2007 Narrative Resulting Agency Comment [address] [phone] German Monahan Jr., MD LAB - SEROLOGY OR DERABLES [facility] INSURANCE BILL * RHEUMATOID FACTOR BLOOD QUANTITATIVE (08/19/2007 4:17 PM AGENCY SERVICE REPRESENTATIVE) Rheumatoid Factor 12.0 0.0 - 13.9 IU/mL [facility] INSURANCE BILL 08/19/2007 4:17 PM AGENCY SERVICE REPRESENTATIVE 08/19/2007 Narrative Resulting Agency Comment [facility] [address] [phone] German Monahan Jr., MD LAB - CHEMISTRY [...] CDT 06/06/2007 Narrative Resulting Agency Comment [facility] [address] [phone] German Monahan Jr., MD LAB - CHEMISTRY O USAMA Performing Organization Address [facility] Co de Phone Number [facility] INSURANCE BILL * TESTOSTERONE FREE (06/06/2007 10:03 AM CDT) Free Testosterone(Di rect) 8.9 6.8 - 21.5 pg/mL [facility] INSURANCE BILL 06/06/2007 10:0 3 AM CDT 06/06/2007 Narrative Resulting Agency Comment [facility] [phone] German Monahan Jr., MD LAB - CHEMISTRY O USAMA [facility] INSURANCE BILL Care Teams Patient Experience Coordinator Relationship Specialty Start Date End Date Shereen Mckeon MD [address] [place] [address] PCP - General Internal Medicine 09/27/21
--- OUTSIDE RECORDS SUMMARY | 2024-11-14 15:37 | XMS_ITS | Referral Summary ---
Author Organization [facility] Address [address] [place] [address] Care Team Providers Care Link Trainer Mechanic Name Role Phone Shereen Mckeon MD Primary Care Provider [phone] Source Comments [facility],non-[facility] Affiliates and Associated Physician Practices is amultiple site organization consisting of ambulatory clinics and hospital sitesin [place], [place], [place] and [place]. This disclosure is being madepursuant to the Care Everywhere program and may not contain all information available regarding this patient. Last updated 18.[facility] Encounters Date Type Department Care Team Description 11/05/2024 Orders Only [facility] - Internal Medicine [address] [place] [phone] Marcella Marquez APRN-CNP 10/04/2024 11:46 AM HIGH SCHOOL SOCIAL STUDIES TUTOR - 10/04/2024 11:59 PM HIGH SCHOOL SOCIAL STUDIES TUTOR Hospital Encounter [facility] Imaging Services - CT Scan [address] [place] [address] Marcella Marquez APRN-CNP Discharge Disposition: Home or Self Care 10/04/2024 Travel 10/04/2024 9:45 AM HIGH SCHOOL SOCIAL STUDIES TUTOR Office Visit [facility] - Internal Medicine [address] [place] [phone] Marcella Marquez APRN-CNP Annual physical exam (Primary Dx); LLQ pain; Screening PSA (prostate specific antigen); Essential hypertension 09/27/2024 Travel 09/27/2024 1:30 PM HIGH SCHOOL SOCIAL STUDIES TUTOR Procedure visit [facility] - Urology [address], [address] [place] [address] Kendall Greene MD Peyronie's disease 09/20/2024 Travel 09/20/2024 3:15 PM HIGH SCHOOL SOCIAL STUDIES TUTOR Office Visit [facility] Orthopedics [address] [place] [address] Ar Arreaga PA-C Glenohumeral arthritis, left (Primary Dx) 09/17/2024 Refill [facility] Internal Medicine [address] [place] [address] [address] [place] [address] Shereen Mckeon MD Med Change Request 09/15/2024 Refill [facility] Internal Medicine [address] [place] [phone] Shereen Mckeon MD Med Change Request 09/13/2024 Travel 09/13/2024 1:30 PM HIGH SCHOOL SOCIAL STUDIES TUTOR Procedure visit [facility] - Urology [address], [address] [place] [address] Kendall Greene MD Peyronie's disease 08/30/2024 Travel 08/30/2024 1:30 PM HIGH SCHOOL SOCIAL STUDIES TUTOR Procedure visit [facility] - Urology [address], [address] [place] [address] Kendall Greeen MD Peyronie's disease 08/23/2024 Travel 08/23/2024 3:20 PM HIGH SCHOOL SOCIAL STUDIES TUTOR Office Visit [facility] Internal Medicine [address] [place] [address] [address] [place] [phone] Verenice Dickens, HUB INVENTORY SPECIALIST-WATCH ELECTRICIAN Current moderate episode of major depressive disorder, unspecified whether recurrent (HCC) (Primary Dx); Marijuana smoker, episodic; Insomnia, unspecified type 08/19/2024 Telephone [facility] Internal Medicine [address] [place] [address] [address] [place] [address] Shereen Mckeon MD INSOMNIA 08/16/2024 Travel 08/16/2024 1:30 PM HIGH SCHOOL SOCIAL STUDIES TUTOR Procedure visit [facility] - Urology [address] [place] [address] Kendall Greene MD Peyronie's disease 08/15/2024 Refill [facility] - Internal Medicine [address] [place] [address] Shereen Mckeon MD Refill Request [...] Dispensed Refills Start Date End Date Status [place]-3 Fatty Acids (FISH OIL PO) Active Multiple [...] Comments Blood Pressure 112/74 10/04/2024 9:31 AM HIGH SCHOOL SOCIAL STUDIES TUTOR Pulse 56 10/04/2024 9:31 AM HIGH SCHOOL SOCIAL STUDIES TUTOR Temperature 36.4 C (97.5 F) 10/04/2024 9:31 AM HIGH SCHOOL SOCIAL STUDIES TUTOR Respiratory Rate 16 10/03/2023 1:32 PM HIGH SCHOOL SOCIAL STUDIES TUTOR Oxygen Saturation 98% 10/04/2024 9:31 AM HIGH SCHOOL SOCIAL STUDIES TUTOR Inhaled Oxygen Concentration - - Weight 88.9 kg (196 lb) 10/04/2024 9:31 AM HIGH SCHOOL SOCIAL STUDIES TUTOR Height 177.8 cm (5' 10 ) 06/14/2024 2:29 PM CDT Body Mass Index 28.12 06/14/2024 2:29 PM CDT Plan of Treatment Not on file Goals Goal Patient Goal Type Associated Problems Recent Progress Patient-Stated? Author Blood Pressure < 140/90 Blood Pressure 112/74(2023 9:31 AM HIGH SCHOOL SOCIAL STUDIES TUTOR) Camila Hoang Note: Caring for Your High [...] Where can I go for more information? [place] Heart Association National Center: http://www.americanheart.org 1. In the top header, click C onditions . 2. In the top header, click h igh blood pressure. 3. For a printable blood pressure tracker, scroll toward the bottom of the page to Related Tools, and click H BP Trackers. [id number]-SKH-[id number] or ( ) National Heart, Lung and Blood [place]: http://www.nhlbi.nih.gov/health/infoctr/index.htm Medical Devices Implanted Type Area Dental Nurse Device Identifier Shelf Expiration Date Model / Serial / Lot Endo Sabine Articulating Reload Implanted:Qty: 1 on 05/27/2013 at [facility] 12/04/2017 [id number] / / [id number] Description:60 mm Endo Sabine Reload 60mm Implanted:Qty: 2 on 05/27/2013 at [facility] 03/06/2018 [id number] / / [id number] Endo Sabine Articulating Reload, 60mm Implanted:Qty: 1 on 05/27/2013 at [facility] 04/05/2018 [id number] / / [id number] Autosuture Dst Series 28 Xl Eea Implanted:Qty: 1 on 05/27/2013 at [facility] 12/04/2016 [id number] / / [id number] [place] Sut Pushlock 2.9mm Bcmps 12.5mm Implanted:Qty: 1 on 09/17/2018 by Jayjay Prieto MD at [facility] Left: Shoulder [employer] 03/05/2020 [id number] / / [id number] [place] Sut Pushlock 2.9mm Bcmps 12.5mm Implanted:Qty: 2 on 09/17/2018 by Jayjay Prieto MD at [facility] Left: Shoulder [employer] 06/05/2020 [id number] / / [id number] [place] Sut Fibertak Suturetape 1.3mm Implanted:Qty: 1 on 09/17/2018 by Jayjay Prieto MD at [facility] Left: Shoulder [employer] 01/03/2023 [id number] / / [id number] [place] Sut Pushlock 2.9mm Bcmps 12.5mm Implanted:Qty: 1 on 09/17/2018 by Jayjay Prieto MD at [facility] Left: Shoulder [employer] 05/05/2020 [id number] / / [id number] [place] Sut Pushlock 2.9mm Bcmps Roland Implanted:Qty: 1 on 09/17/2018 by Jayjay Prieto MD at [facility] Left: Shoulder [employer] 02/03/2020 [id number] / / [id number] Procedures Procedure Name Priority Date/Time Associated Diagnosis Comments PROSTATE SPECIFIC ANTIGEN SCREEN 11/05/2024 6:59 AM HIGH SCHOOL SOCIAL STUDIES TUTOR CBC W AUTO DIFFERENTIAL 11/05/2024 6:59 AM HIGH SCHOOL SOCIAL STUDIES TUTOR COMPREHENSIVE METABOLIC PANEL 11/05/2024 6:59 AM HIGH SCHOOL SOCIAL STUDIES TUTOR LIPID PROFILE 11/05/2024 6:59 AM HIGH SCHOOL SOCIAL STUDIES TUTOR ISTAT CREATININE Routine 10/04/2024 1:59 PM HIGH SCHOOL SOCIAL STUDIES TUTOR CT ABDOMEN PELVIS W CONTRAST Routine 10/04/2024 1:45 PM HIGH SCHOOL SOCIAL STUDIES TUTOR LLQ pain TOXASSURE SELECT Routine 08/23/2024 3:56 PM HIGH SCHOOL SOCIAL STUDIES TUTOR Current moderate episode of major depressive disorder, unspecified whether recurrent (HCC) Marijuana smoker, episodic ENDOSCOPY, COLON, SCREENING Routine 12/17/2021 History of adenomatous polyp of colon - multiple polyps, large polyps, serrated adenoma Serrated polyp of colon Family history of colonic polyps HEPATITIS C ANTIBODY W RFLX PCR Routine 10/22/2018 9:26 AM HIGH SCHOOL SOCIAL STUDIES TUTOR Routine general medical examination at a health care facility from Last 3 Months or Most Recently Relevant to Health Maintenance Results * CBC WITH DIFFERENTIAL (11/05/2024 6:59 AM HIGH SCHOOL SOCIAL STUDIES TUTOR) White Blood Cell Count 8.2 3.8 - [...] 0.5 % [facility] Comment: Test Performed at: [facility] [address] [place] [address] BRIGIDO SHELTON MD 11/05/2024 6:59 AM HIGH SCHOOL SOCIAL STUDIES TUTOR 11/05/2024 7:01 AM HIGH SCHOOL SOCIAL STUDIES TUTOR Marcella Marquez APRN-WATCH ELECTRICIAN LAB - SOL TOLOGY ORDERABLES [facility] [address] [place] [address] * COMPREHENSIVE METABOLIC PANEL (11/05/2024 6:59 AM HIGH SCHOOL SOCIAL STUDIES TUTOR) Glucose 95 65 - 99 mg/dL [facility] [...] 46 U/L [facility] Comment: Test Performed at: [employer] [facility] [place] [address] BRIGIDO SHELTON MD 11/05/2024 6:59 AM HIGH SCHOOL SOCIAL STUDIES TUTOR 11/05/2024 7:01 AM HIGH SCHOOL SOCIAL STUDIES TUTOR Marcella Marquez APRN-WATCH ELECTRICIAN LAB - CHEM ISTRY ORDERABLES Performing Organization Address [facility] de Phone Number [facility] [address] [place] [address] * PROSTATE SPECIFIC ANTIGEN SCREEN (11/05/2024 6:59 AM HIGH SCHOOL SOCIAL STUDIES TUTOR) PSA 0.75 < OR = 4.00 ng/mL [facility] Comment: The total PSA value from this assay system is standardized against the WHO standard. The test result will be approximately 20% lower when compared to the equimolar-standardized total PSA (Aniyah Inocnete). Comparison of serial PSA results should be interpreted with this fact in mind. This test was performed using the Siemens chemiluminescent method. Values obtained from different assay methods cannot be used interchangeably. PSA levels, regardless of value, should not be interpreted as absolute evidence of the presence or absence of disease. Test Performed at: [facility] [address] [place] [address] BRIGIDO SHELTON MD 11/05/2024 6:59 AM HIGH SCHOOL SOCIAL STUDIES TUTOR 11/05/2024 7:01 AM HIGH SCHOOL SOCIAL STUDIES TUTOR Marcella Marquez HUB INVENTORY SPECIALIST-WATCH ELECTRICIAN LAB - CHEM ISTRY ORDERABLES Performing Organization Address [facility] de Phone Number [facility] [address] [place] [address] * LIPID PROFILE (11/05/2024 6:59 AM HIGH SCHOOL SOCIAL STUDIES TUTOR) Cholesterol 160 <200 mg/dL [facility] HDL Cholesterol [...] LDL-C. German MCDERMOTT et al. FAUZIA. 2013;310(19): 5782-7280 (http://education.[employer]/faq/OFP145) CHOL/HDLC RATIO 3.0 <5.0 (calc) [facility] Non HDL Cholesterol 107 <130 mg/dL (calc) [facility] Comment: For patients with diabetes plus 1 major ASCVD risk factor, treating to a non-HDL-C goal of <100 mg/dL (LDL-C of <70 mg/dL) is considered a therapeutic option. Test Performed at: [facility] [address] [place] [address] BRIGIDO SHELTON MD 11/05/2024 6:59 AM HIGH SCHOOL SOCIAL STUDIES TUTOR 11/05/2024 7:01 AM HIGH SCHOOL SOCIAL STUDIES TUTOR Marcella Marquez APRN-WATCH ELECTRICIAN LAB - CHEM ISTRY ORDERABLES [facility] [address] [place] [address] * ISTAT CREATININE (10/04/2024 1:59 PM HIGH SCHOOL SOCIAL STUDIES TUTOR) Sample iSTAT GRICELDA 10/04/2024 2:01 PM HIGH SCHOOL SOCIAL STUDIES TUTOR [facility] Creatinine POCT 0.8 0.5 - 1.3 mgdL 10/04/2024 2:01 PM HIGH SCHOOL SOCIAL STUDIES TUTOR [facility] Blood BLOOD SPECIMEN / Unknown 10/04/2024 1:59 PM HIGH SCHOOL SOCIAL STUDIES TUTOR 10/04/2024 2:01 PM HIGH SCHOOL SOCIAL STUDIES TUTOR Marcella Marquez APRN-WATCH ELECTRICIAN LAB - POIN T OF CARE ORDERABLES [facility] [address] [place] [address], [facility] * CT Abdomen Pelvis W Contrast (10/04/2024 1:45 PM HIGH SCHOOL SOCIAL STUDIES TUTOR) Anatomical Region Laterality Modality Abdomen, Pelvis Computed Tomogra phy 10/04/2024 2:24 PM HIGH SCHOOL SOCIAL STUDIES TUTOR Impressions 10/04/2024 2:29 PM HIGH SCHOOL SOCIAL STUDIES TUTOR IMPRESSION: 1. Inflammatory change adjacent to the [...] 10/04/2024 2:29 PM Narrative 10/04/2024 2:29 PM HIGH SCHOOL SOCIAL STUDIES TUTOR PROCEDURE: CT ABDOMEN PELVIS W CONTRAST DATE/TIME [...] 2. Normal appendix > Interpreting Provider: Hilton Rmaos MD on 10/04/2024 2:29 PM Marcella Sarabia Jimmy HUB INVENTORY SPECIALIST-WATCH ELECTRICIAN CT ORDERAB LES * TOXASSURE SELECT URINE (08/23/2024 3:56 PM HIGH SCHOOL SOCIAL STUDIES TUTOR) Summary FINAL [facility] INSURANCE BILL Comment: TOXASSURE SELECT 13 (MW) Test Result Flag Units NO DRUGS DETECTED. Test Result Flag Units Ref Range Creatinine 29 mg/dL >=20 Declared Medications: Medication list was not provided. For clinical consultation, please call . URINE SPECIMEN OBTAINED BY CLEAN CATCH PROCEDURE / Unknown 08/23/2024 3:56 PM HIGH SCHOOL SOCIAL STUDIES TUTOR 08/23/2024 Narrative [facility] INSURANCE BILL - 08/29/2024 3:07 PM HIGH SCHOOL SOCIAL STUDIES TUTOR Performed at: 01 - [employer] [address] [place] [id number] Shop Clerk: Mayelin Kathleen [facility], Phone: [phone] Specimen Comment: [employer], [employer] FLEX or MAT drug testing: Specimen Comment: -Technical component - Data analysis performed at Specimen Comment: [address] , [place] [address]. Verenice Dickens APRN-WATCH ELECTRICIAN LAB - URINE CHEMISTRY ORDERABLES Performing Organization Address City/[facility]/[employer] de Phone Number [facility] INSURANCE BILL [address] [place] [address] * ENDOSCOPY, COLON, SCREENING (12/17/2021) Angel Coyle MD GI PROCEDURE ORDERAB LES [facility] RESULT SCAN * HEPATITIS C ANTIBODY W RFLX PCR (10/22/2018 9:26 AM HIGH SCHOOL SOCIAL STUDIES TUTOR) Hepatitis C Antibody 0.1 0.0 - 0.9 s/co ratio [facility] ACCOUNT BILL Blood BLOOD SPECIMEN / Unknown 10/22/2018 9:26 AM HIGH SCHOOL SOCIAL STUDIES TUTOR 10/22/2018 Narrative Resulting Agency Comment [facility] [address] [facility] [phone] German Monahan Jr., MD LAB - CHEMISTRY O RDERABLES [facility] ACCOUNT BILL [address] [place] [address] from Last 3 Months or Most Recently Relevant to Health Maintenance Advance Directives Documents on File Type Date Recorded Patient Plug Cutting Machine Operator Expl anation Adv Directive/Living Will/POA 06/02/2013 7:12 PM * FULL RESUSCITATION (Latest Code Status on File) Date Activated Date Inactivated Comments 05/27/2013 4:48 PM 06/01/2013 12:04 PM Care Teams Link Trainer Mechanic Relationship Specialty Start Date End Date Shereen Mckeon MD [address] [place] [address] PCP - General Internal Medicine 09/27/21
--- OUTSIDE RECORDS SUMMARY | 2024-11-14 15:37 | XMS_ITS | Encounter Summary ---
Author Organization [facility] Health Address [address] [place] [address] Care Team Providers Care Power Plant Engineer Name Role Phone Taniya Staton MD, German Lofton Primary Care Provider [phone] Shereen Mckeon MD Primary Care Provider Encounter Details Date Type Department Care Team (Late st Contact Info) Description 03/15/2019 [facility] Outpatient Visit [facility] [address] [place] [address] Jayjay Prieto MD [address] [facility] [address] [address] Social History Tobacco Use Types [...] < 140/90 Blood Pressure 112/74(2023 9:31 AM SPLICING MACHINE OPERATOR) Camila Hoang Note: Caring for Your High [...] Where can I go for more information? [place] Heart Association National Center: http://www.americanheart.org 1. In the top header, click C onditions . 2. In the top header, click h igh blood pressure. 3. For a printable blood pressure tracker, scroll toward the bottom of the page to Related Tools, and click H BP Trackers. 2-247-IRR-USA-1 or ( ) National Heart, Lung and Blood [place]: http://www.nhlbi.nih.gov/health/infoctr/index.htm documented as of this encounter Visit Diagnoses Not on filedocumented in this encounter Additional Health Concerns Infection Onset Date Last Indicated Resolved Time COVID-19 Under Investigation 06/20/2023 06/20/2023 06/20/2023 9:18 AM CDT documented as of this encounter Care Teams Power Plant Engineer Relationship Specialty Start Date End Date German Monahan Jr., MD [address] [place], [place] [address]W[place] [address] [place] [address] PCP - General 05/12/08 09/26/21 Shereen Mckeon MD [address] [place], [place] [address] [address] [place] [id number] PCP - General Internal Medicine 09/27/21 documented as of this encounter
--- NOTE | 2024-11-14 15:52 | ED_ITS ---
HPI - Extremity Injury (Lower) General Chief Complaint: Extremity Injury, Lower Stated Complaint: right knee pain Time Seen by Provider: 11/14/24 15:30 History of Present Illness HPI Narrative: 64-year-old male with history of gout presents emergency department for atraumatic right knee pain. Patient states the pain will come out of his sleep last night. He noticed redness, pain and edema to the anterior aspect of his knee. States his was concerned for a blood clot so advised to come to the ER. Patient states he took colchicine yesterday and today without improvement and takes allopurinol daily to help with his gout flares. He states when he gets a gout flare to usually to his right knee but slightly more inferior than this presentation. He denies swelling to the rest of his leg, history of DVT or PE, recent surgeries or hospitalizations, recent long station. Denies injury or trauma to his knee, denies skin compromise, frequent kneeling, fever. Patient is established with an orthopedist at [facility] in [facility]. Related Data Allergies Allergy/AdvReac Type Severity Reaction Status Date / Time ciprofloxacin (From Cipro) Allergy Rash Verified 11/14/24 15:14 Review of Systems Review of Systems: All systems reviewed & are unremarkable except as noted in HPI and below Exam Narrative: GENERAL: Well-appearing, well-nourished, and in no acute distress. HEAD: Normocephalic, atraumatic. EYES: EOMI. ENT: Nares clear, no rhinorrhea or epistaxis. Mucous membranes moist. NECK: Supple. CHEST: Clear to auscultation. No respiratory distress. HEART: Regular rate and rhythm. No murmur heard. Normal peripheral pulses. EXTREMITIES: RLE: [id number] areas of edema, erythema and warmth to the anterior aspect of the knee overlying the septic bursa with tenderness to this region. No cellulitic changes remainder of knee joint, full active and passive range of motion of knee, no edema or tenderness remainder of extremity DP pulse 2 +, sensation intact. SKIN: Warm, dry, no rash. NEURO: No focal deficits. Alert and oriented x3 Course Vital Signs Vital signs: Vital Signs Temperature 97.7 F 11/14/24 15:20 Pulse Rate 60 11/14/24 15:20 Respiratory Rate 16 11/14/24 15:20 Blood Pressure 131/71 11/14/24 15:20 Pulse Oximetry 99 11/14/24 15:20 Oxygen Delivery Room Air 11/14/24 15:20 Temperature 97.7 F 11/14/24 15:20 Pulse Rate 60 11/14/24 15:20 Respiratory Rate 16 11/14/24 15:20 Blood Pressure 131/71 11/14/24 15:20 Pulse Oximetry 99 11/14/24 15:20 Oxygen Delivery Room Air 11/14/24 15:20 MDM - Extremity Injury (Lower) MDM Narrative Medical decision making narrative: 64-year-old male with history of gout presents to the emergency department for atraumatic right knee pain for 1 day. See HPI for further history. Triage vitals are stable. Patient is afebrile nontoxic appearing. Exam is significant for edema, tenderness, focal area of erythema and warmth to the anterior aspect of the knee. He does have full active and passive range of motion of knee, therefore septic arthritis seems less likely. Additionally the erythema and warmth is focal an approximately 4 cm x 2 cm to the anterior aspect of the knee, consistent with a septic arthritis. He is neurovascularly intact. There is no edema or skin changes remainder of extremity, no risk factors for DVT, additionally presentation is not consistent with DVT. X-ray showed degenerative disease without acute fracture, no suprapatellar joint effusion identified, infrapatellar joint space is clear. Patient was updated on results and workup. Suspect gout. He is prescribed colchicine which he started taking yesterday, advised to continue taking this (reportedly unable to take NSAIDs due to GI issues). Will provide [place] for pain control. Additionally will cover with Keflex due to concerns for cellulitis versus septic bursitis, however septic bursitis seems less likely given no suprapatellar joint effusion seen on x-ray. Advised patient follow-up closely with his orthopedist discussed return precautions. He is agreeable with the plan verbalized understanding. Discharged in stable condition. Discharge Plan Discharge Clinical Impression: Gout Qualifiers: Gout site: knee Gout etiology: unspecified cause Chronicity: acute Laterality: right Qualified Code(s): M10.9 - Gout, unspecified Patient Disposition: Home, Self-Care Condition: Stable Instructions: Antibiotic Form, Low Purine Diet (ED), Gout (ED) Additional Instructions: You were evaluated in the emergency department for pain, redness and swelling to your right knee. The x-ray shows some degenerative changes but nothing acute. Your presentation is consistent with gout. Please continue taking the colchicine until 24 hours after symptoms have resolved. You can take hydrocodone as needed for pain. I have also send antibiotics to the pharmacy to cover an infection, please take these as directed. Follow up with her orthopedist. Return to the emergency department if you develop increasing pain, fever, spreading redness or other concerning symptoms. Patient Language: Luxembourgish Prescriptions: New hydrocodone-acetaminophen 5-325 mg tablet 1 tablet PO Q8H PRN (Reason: pain) Qty: 14 0RF cephalexin 500 mg capsule 500 mg PO Q6H Qty: 28 0RF Follow-up/Referrals: PHYSICIAN,VENEER REDRIER [Primary Care Provider] -
[2024-11-14] MEDS: HYDROcodone/acetaminophen (*CRX) 5-325 MG TABLET 1 TAB PO (16:48)
== END 2024-11-14 17:11 | disposition home or self-care (01) ==
PROVIDERS: Emergency Provider Physician Assistant
DX: M10.9 Gout, unspecified (principal)
CPT/HCPCS: 73564; 99283; A9270